=== PATIENT | female | born 1945 | race African-American/Black ===

== ENCOUNTER 2016-08-12 11:34 | Inpatient (IN) | payer OTHER ==
[2016-08-12] VITALS (9 sets, daily range): BP systolic 123–153; BP diastolic 48–88
[~2016-08-12] VITALS: Ht 167.6 cm; Wt 93.6 kg
[2016-08-12] MEDS ORDERED: CEFAZOLIN 2GM PREMIX 50 ML IV ONE (12:26)
[2016-08-12] MEDS ORDERED: IV NORMAL SALINE 1000ML BAG 1,000 ML IV ONE (12:30)
[2016-08-12] MEDS ORDERED: PROPOFOL 20 ML IV ONE ×2 (12:54)
[2016-08-12] MEDS ORDERED: DEXAMETHASONE SOD PHOS 20 MG/5 ML VIAL. ONE (12:55)
[2016-08-12] MEDS ORDERED: FENTANYL PF 100 MCG/2 ML VIAL. ONE ×2 (12:55→15:05)
[2016-08-12] MEDS ORDERED: ONDANSETRON PF 4 MG/2 ML VIAL. ONE (12:55)
[2016-08-12] MEDS ORDERED: BUPIVAC MPF-EPI 0.5%-1:200000 30 ML VIAL. ONE (13:48)
[2016-08-12] MEDS ORDERED: SURGICEL HEMOSTAT 4X8 EACH. ONE (14:11)
[2016-08-12] MEDS ORDERED: PHENYLEPHRINE in 0.9% NACL PF 1 MG/10 ML DISP.SYRIN. IV ONE (14:24)
[2016-08-12] MEDS ORDERED: NEOMY/BACITR/POLYMYXIN OINT PACKET. TP ONE (14:26)
[2016-08-12] MEDS ORDERED: SEVOFLURANE 31 TO 60 MINUTES. IH ONE (14:27)
--- NOTE | 2016-08-12 14:55 | PDOC ---
BRIEF OPERATIVE NOTE Date: Aug 12, 2016 Pre-Op Diagnosis left breast mass, fluid collection Post-Op Diagnosis same Procedure Performed skin and breast biopsy right Surgeon Jose Luis Anesthesia Type: General Blood Loss 25cc IV Fluid 700cc Specimens Obtained skin and breast tissue Findings large fluid filled cavity with induration around the periphery Complications none ATIF CHING MD Aug 12, 2016 14:55
[2016-08-12] MEDS ORDERED: HYDROCODONE/APAP 5/325MG TABLET. PO PRN ×2 (15:00)
[2016-08-12] MEDS ORDERED: DIPHENHYDRAMINE 50 MG/ML VIAL. IV PRN (15:00)
[2016-08-12] MEDS ORDERED: HYDROMORPHONE 2 MG/ML VIAL. IV PRN ×2 (15:00→15:15)
[2016-08-12] MEDS ORDERED: ONDANSETRON PF 4 MG/2 ML VIAL. IV PRN ×2 (15:00→15:15)
[2016-08-12] MEDS ORDERED: DIPHENHYDRAMINE HCL 25 MG CAPSULE PO PRN (15:00)
[2016-08-12] MEDS: ENOXAPARIN 40 MG/0.4 ML SYRINGE. SQ SCH (15:00)
[2016-08-12] MEDS ORDERED: 0.9 % SODIUM CHLORIDE 10 ML DISP.SYRIN. IV PRN (15:00)
[2016-08-12] MEDS ORDERED: IV RINGERS,LACTATED 1000ML 1,000 ML IV SCH (15:08)
[2016-08-12] MEDS ORDERED: MORPHINE SULFATE 2 MG/ML DISP.SYRIN. IV PRN (15:15)
[2016-08-12] MEDS ORDERED: FENTANYL PF 100 MCG/2 ML VIAL. IV PRN ×2 (15:15)
[2016-08-12] MEDS ORDERED: LIDOCAINE 1% 1 ML SYRINGE. ID PRN (15:15)
[2016-08-12] MEDS ORDERED: PROCHLORPERAZINE 10 MG/2 ML VIAL. IV PRN (15:15)
[2016-08-12] MEDS ORDERED: CHOL2000 PO (17:57)
[2016-08-12] MEDS ORDERED: BUPR150T8 PO (17:57)
[2016-08-12] MEDS ORDERED: ASPI81TA2 PO (17:57)
[2016-08-12] MEDS ORDERED: LOSA1TAB17 PO (17:57)
[2016-08-12] MEDS ORDERED: LORA10TA3 PO (17:57)
[2016-08-12] MEDS ORDERED: ATOR40TA59 PO (17:57)
[2016-08-12] MEDS ORDERED: METO25TA4 PO (17:57)
[2016-08-12] MEDS ORDERED: FURO40TA4 PO (17:57)
[2016-08-12] MEDS: POTASSIUM CL 20MEQ-0.45% NACL 1,000 ML IV SCH (19:30)
[2016-08-12] MEDS: CEFAZOLIN SODIUM 1 GM in IV NORMAL SALINE 50ML 50 ML IV SCH (20:41)
[2016-08-12] MEDS: buPROPion SR 150 MG TABLET.SA PO SCH (20:44)
[2016-08-12] MEDS: DOCUSATE SODIUM 100 MG CAPSULE. PO SCH (20:45)
[2016-08-12] MEDS: METOPROLOL TART IMMED RELEASE 25 MG TABLET. PO SCH (20:46)
[2016-08-12] MEDS ORDERED: ATORVASTATIN CALCIUM 40 MG TABLET. PO SCH (21:00)
[2016-08-13 03:32] VITALS: BP 140/72
[2016-08-13] MEDS: POTASSIUM CL 20MEQ-0.45% NACL 1,000 ML IV SCH (04:15)
[2016-08-13] MEDS: CEFAZOLIN SODIUM 1 GM in IV NORMAL SALINE 50ML 50 ML IV SCH (06:02)
[2016-08-13 07:12] VITALS: BP 123/49
[2016-08-13] MEDS: METOPROLOL TART IMMED RELEASE 25 MG TABLET. PO SCH (08:10)
[2016-08-13] MEDS: DOCUSATE SODIUM 100 MG CAPSULE. PO SCH (08:10)
[2016-08-13] MEDS: buPROPion SR 150 MG TABLET.SA PO SCH (08:12)
[2016-08-13] MEDS ORDERED: CETIRIZINE HCL 10 MG TABLET. PO SCH (09:00)
[2016-08-13] MEDS ORDERED: LOSARTAN POTASSIUM 50 MG TABLET. PO SCH (09:00)
[2016-08-13] MEDS ORDERED: FUROSEMIDE 40 MG TABLET. PO SCH (09:00)
[2016-08-13] MEDS ORDERED: NON FORMULARY ITEM (Losartan/Hydrochlorothiazide (Losartan-Hctz 100-25 Mg Tab) 1 TAB) PO SCH (09:00)
[2016-08-13] MEDS ORDERED: CHOLECALCIFEROL (VITAMIN D3) 1,000 UNIT TABLET PO SCH (09:00)
[2016-08-13] MEDS ORDERED: ASPIRIN CHEWABLE 81 MG TABLET. PO SCH (09:00)
[2016-08-13] MEDS ORDERED: HYDROCHLOROTHIAZIDE 25 MG TABLET PO SCH (09:00)
--- NOTE | 2016-08-13 09:16 | PDOC2 ---
CONSULT Date of Consult Date of Consult DATE: 08/12/16 Reason for Consult Reason for Consult: Medication Management Referring Physician Referring Physician: Dr. Amaya Identification/Chief Complaint Chief Complaint Left Breast Mass Source Source: Patient History of Present Illness Reason for Visit: Pt states that she has had pain and drainage from her left breast for the past month. She was taken to the OR yesterday and pain has improved. She is feeling pretty well this morning. Past Medical History Cardiovascular: CHF, HTN, Hyperlipidemia Pulmonary: No pertinent hx GI: No pertinent hx Heme/Onc: Anemia NOS Hepatobiliary: No pertinent hx Psych: No pertinent hx Musculoskeletal: Osteoarthritis Rheumatologic: No pertinent hx Infectious disease: No pertinent hx ENT: No pertinent hx Renal/: Chronic renal insuff Endocrine: No pertinent hx Dermatology: No pertinent hx Past Surgical History Past Surgical History: Total knee replacement, Other (left femur fracture, left ankle repair) Family History Family History: Diabetes (Mother) Social History Quit ALCOHOL: none Drugs: None Lives: Alone Domestic Violence: Neg Current Problem List Problem List Problems Medical Problems: (1) Left breast abscess Status: Acute (2) Obesity Status: Acute Current Medications Current Medications Current Medications Sodium Chloride 1,000 ml @ 125 mls/hr 1X ONCE IV Last administered on t 12:23; Start 08/12/16 at 12:30; Stop 08/12/16 at 20:29; Status DC Cefazolin Sodium/ Dextrose 50 ml @ As Directed STK-MED ONCE IV ; Start 08/12/16 at 12:26; Stop 08/12/16 at 12:27; Status DC Propofol 20 ml @ As Directed STK-MED ONCE IV ; Start 08/12/16 at 12:54; Stop at 12:55; Status DC Propofol (Diprivan) 20 ml @ As Directed STK-MED ONCE IV ; Start 08/12/16 at 12: 54; Stop 08/12/16 at 12:55; Status DC Fentanyl Citrate (Fentanyl 2ml Vial) 100 mcg STK-MED ONCE .ROUTE ; Start at 12:55; Stop 08/12/16 at 12:56; Status DC Dexamethasone Sodium Phosphate (Decadron) 20 mg STK-MED ONCE .ROUTE ; Start at 12:55; Stop 08/12/16 at 12:56; Status DC Ondansetron HCl (Zofran) 4 mg STK-MED ONCE .ROUTE ; Start 08/12/16 at 12:55; Stop 08/12/16 at 12:56; Status DC Bupivacaine HCl/ Epinephrine Bitart (Sensorcain-Mpf Epi 0.5%-1:[id number]) 30 ml STK -MED ONCE .ROUTE ; Start 08/12/16 at 13:48; Stop 08/12/16 at 13:49; Status DC Cellulose 1 each STK-MED ONCE .ROUTE Last administered on 08/12/16 13:58; Start 08/12/16 at 14:11; Stop 08/12/16 at 14:12; Status DC Phenylephrine HCl 1 mg STK-MED ONCE IV ; Start 08/12/16 at 14:24; Stop 08/12/16 at 14:25; Status DC Neomycin/ Polymyxin/ Bacitracin (Triple Antibiotic Ointment) 1 pkt STK-MED ONCE TP Last administered on 08/12/16 13:58; Start 08/12/16 at 14:26; Stop at 14:27; Status DC Sevoflurane (Ultane) 30 ml STK-MED ONCE IH ; Start 08/12/16 at 14:27; Stop 08/12 at 14:28; Status DC Diphenhydramine HCl (Benadryl) 25 mg PRN Q6HRS PRN PO ITCHING; Start 08/12/16 at 15:00 Diphenhydramine HCl (Benadryl) 25 mg PRN Q6HRS PRN IV ITCHING; Start 08/12/16 at 15:00 Enoxaparin Sodium (Lovenox 40mg Syringe) 40 mg Q24H SQ ; Start 08/12/16 at 15:00 Sodium Chloride 3 ml 3 ml QSHIFT PRN IV AFTER MEDS AND BLOOD DRAWS; Start 08/12 at 15:00 Potassium Chloride/Sodium Chloride (KCl 20 Meq-0.45% Nacl) 1,000 ml @ 75 mls/ hr [id number] IV Last administered on 08/12/16 19:30; Start 08/12/16 at 14:55 Acetaminophen/ Hydrocodone Bitart (Lortab 5/325) 1 tab PRN Q4HRS PRN PO MILD PAIN; Start 08/12/16 at 15:00 Acetaminophen/ Hydrocodone Bitart (Lortab 5/325) 2 tab PRN Q4HRS PRN PO MODERATE PAIN, SEVERE PAIN Last administered on 08/13/16 08:17; Start 08/12/16 at 15:00 Hydromorphone HCl (Dilaudid) 0.5 mg PRN Q3HRS PRN IV PAIN; Start 08/12/16 at 15 :00 Docusate Sodium (Colace) 100 mg BID PO Last administered on 08/13/16 08:10; Start 08/12/16 at 21:00 Ondansetron HCl (Zofran) 4 mg PRN Q6HRS PRN IV NAUESA, 1ST CHOICE; Start at 15:00 Fentanyl Citrate (Fentanyl 2ml Vial) 100 mcg STK-MED ONCE .ROUTE ; Start at 15:05; Stop 08/12/16 at 15:06; Status DC Ondansetron HCl (Zofran) 4 mg PRN Q6HRS PRN IV NAUSEA/VOMITING; Start 08/12/16 at 15:15; Stop 08/12/16 at 20:00; Status DC Fentanyl Citrate (Fentanyl 2ml Vial) 25 mcg PRN Q5MIN PRN IV MILD PAIN; Start 08/12/16 at 15:15; Stop 08/12/16 at 18:00; Status DC Fentanyl Citrate (Fentanyl 2ml Vial) 50 mcg PRN Q5MIN PRN IV MODERATE PAIN Last administered on 08/12/16 15:08; Start 08/12/16 at 15:15; Stop 08/12/16 at 20:00; Status DC Morphine Sulfate 1 mg 1 mg PRN Q10MIN PRN IV SEVERE PAIN; Start 08/12/16 at 15: 15; Stop 08/12/16 at 20:00; Status DC Lactated Ringer's (Iv Lactated Ringers) 1,000 ml @ 30 mls/hr Q24H IV ; Start at 15:08; Stop 08/13/16 at 03:07; Status DC Lidocaine HCl 2 ml PRN 1X PRN ID PRIOR TO IV START; Start 08/12/16 at 15:15; Stop 08/12/16 at 20:00; Status DC Hydromorphone HCl (Dilaudid) 0.5 mg PRN Q10MIN PRN IV SEV PAIN, Second choice; Start 08/12/16 at 15:15; Stop 08/12/16 at 18:00; Status DC Prochlorperazine Edisylate (Compazine) 5 mg PACU PRN PRN IV NAUSEA, MRX1; Start 08/12/16 at 15:15; Stop 08/12/16 at 20:00; Status DC Aspirin (Children'S Aspirin) 81 mg DAILY PO Last administered on 08/13/16 08: 12; Start 08/13/16 at 09:00 Atorvastatin Calcium (Lipitor) 40 mg QHS PO Last administered on 08/12/16 20: 44; Start 08/12/16 at 21:00 Bupropion HCl (Wellbutrin Sr) 150 mg BID PO Last administered on 08/13/16 08: 12; Start 08/12/16 at 21:00 Furosemide (Lasix) 40 mg DAILY PO Last administered on 08/13/16 08:10; Start 08/13/16 at 09:00 Metoprolol Tartrate (Lopressor) 25 mg BID PO Last administered on 08/13/16 08: 10; Start 08/12/16 at 21:00 Vitamin D (Vitamin D3) 2,000 unit DAILY PO Last administered on 08/13/16 08:11 ; Start 08/13/16 at 09:00 Cetirizine HCl (Zyrtec) 10 mg DAILY PO Last administered on 08/13/16 08:11; Start 08/13/16 at 09:00 Non-Formulary Medication 1 tab DAILY PO ; Start 08/13/16 at 09:00; Status UNV Losartan Potassium (Cozaar) 100 mg DAILY PO Last administered on 08/13/16 08: 11; Start 08/13/16 at 09:00 Hydrochlorothiazide 25 mg 25 mg DAILY PO Last administered on 08/13/16 08:11; Start 08/13/16 at 09:00 Cefazolin Sodium/ Sodium Chloride (Ancef/Iv Sodium Chloride 0.9% 50ml) 50 ml @ 100 mls/hr Q12HR IV Last administered on 08/13/16 06:02; Start 08/12/16 at 20: 30 Active Scripts Active Reported Loratadine 10 Mg Tablet 1 Tab PO DAILY Atorvastatin Calcium 40 Mg Tablet 1 Tab PO QHS Metoprolol Tartrate 25 Mg Tablet 1 Tab PO BID Losartan-Hctz 100-25 Mg Tab (Losartan/Hydrochlorothiazide) 1 Each Tablet 1 Tab PO DAILY Furosemide 40 Mg Tablet 1 Tab PO DAILY Aspirin 81 Mg Tab.chew 1 Tab PO DAILY Vitamin D (Cholecalciferol (Vitamin D3)) 2,000 Unit Capsule 1 Cap PO DAILY Wellbutrin Sr (Bupropion Hcl) 150 Mg Tablet.er 1 Tab PO BID Allergies Allergies: Coded Allergies: No Known Drug Allergies (Unverified , 08/12/16) ROS General: No: Chills, Night Sweats PSYCHOLOGICAL ROS: No: Anxiety, Depression Eyes: No Decreased vision, No Eye Pain HEENT: No: Nasal congestion, Sore Throat ALLERGY AND IMMUNOLOGY: No: Hives, Post Nasal Drip Hematological and Lymphatic: No: Bleeding Problems, Blood Clots ENDOCRINE: YES: Breast Changes Breast: No Nipple changes Respiratory: YES: Cough, No: Shortness of breath, Sputum Changes Cardiovascular: No Chest Pain, No Edema, No Palpitations Gastrointestinal: No Abdominal Pain, No Constipation, No Diarrhea, No Nausea, No Vomiting Genitourinary: No Dysuria, No Urgency Musculoskeletal: No Joint Pain, No Muscle Pain Neurological: No Impaired Coord/balance, No Numbness/Tingling Skin: No Rash, No Skin Lesion Changes Physical Exam Physical Exam serosanguinous drainage on left breast dressing and on towel underneath left breast General: Alert, Oriented X3, Cooperative, No acute distress HEENT: Atraumatic, PERRLA, EOMI, Mucous membr. moist/pink Lungs: Clear to auscultation, Normal air movement Heart: Regular rate, No murmurs Abdomen: Normal bowel sounds, Soft, No tenderness, No hepatosplenomegaly Extremities: No clubbing, No cyanosis, No edema Skin: No rashes, No significant lesion Neuro: Normal speech, Sensation intact, Cranial nerves 3-12 NL Psych/Mental Status: Mental status NL, Mood NL Vitals VITALS Vital Signs Date Time Temp Pulse Resp B/P Pulse Ox O2 Delivery O2 Flow Rate FiO2 08/13/16 08:17 Room Air 08/13/16 08:11 63 123/49 08/13/16 07:12 97.9 20 99 97.9 08/12/16 15:05 2 Assessment/Plan Assessment/Plan Pt is a 70yo AAF admitted for left breast surgery. We are consulted for medical management 1)HTN- well controlled. Pt continued on HCTZ 25mg, Losartan 100mg, Metoprolol 25mg BID 2)CHF- compensated. Continue Lasix 40mg 3)Depression- pt continued on Buproprion 150mg BID 4)HLD- pt continued on Atorvastatin 40mg QHS 5)Left Breast Sx- pain medications being managed by surgery. Pt also on Cefazolin -pt eating, will D/C IVF RANDI PATTERSON MD Aug 13, 2016 09:16
[2016-08-13 10:54] VITALS: BP 141/47
--- NOTE | 2016-08-13 12:01 | PDOC ---
Provider Note Provider Note POD 1 awake, alert, NAD dressing dry try to get home today ATIF CHING MD Aug 13, 2016 12:01
--- NOTE | 2016-08-13 14:51 | OP ---
DATE OF SURGERY: 08/12/2016 PREOPERATIVE DIAGNOSIS: Left breast fluid collection/mass. POSTOPERATIVE DIAGNOSIS: Left breast fluid collection/mass. PROCEDURE: Incision and drainage and biopsy of left breast fluid collection. SURGEON: Atif Ching M.D. ANESTHESIA: General. ESTIMATED BLOOD LOSS: 25 mL. INTRAVENOUS FLUIDS: 700 mL. INDICATIONS: The patient is a morbidly obese 70-year-old female with recent history of drainage of her left breast abscess. She presents now with induration, ____, skin change, and fluctuance. OPERATIVE REPORT: The patient was brought to the operating suite, given her general LMA and the left breast was prepped and draped in usual sterile fashion. The area of fluctuance was opened, evacuated, and biopsied. Hemostasis with cautery and 3-0 Vicryl stick ties. Good hemostasis was present and a correct sponge count was obtained. The wound was dressed with Surgicel and 1-inch plain Nu Gauze soaked in saline. Sterile dressing applied. The patient was awakened from her anesthetic and taken to the recovery room in satisfactory condition. ATIF CHING MD DR: CARIE/alexia JOB#: [id number] / [id number]
[2016-08-13] MEDS: ENOXAPARIN 40 MG/0.4 ML SYRINGE. SQ SCH (15:10)
[2016-08-13 15:25] VITALS: BP 163/74
== END 2016-08-13 16:45 | disposition home or self-care (01) | DRG 585 ==
LOC: SURG 11:34 → 4 NORTH 14:55
PROVIDERS: ADMIT Surgery; ATTEND Surgery
PROC: 0HBU0ZX Excision of Left Breast, Open Approach, Diagnostic (ICD-10-PCS; 2016-08-12)
PROC: 0H9U0ZZ Drainage of Left Breast, Open Approach (ICD-10-PCS; principal; 2016-08-12 12:45)
DX: N61.1 Abscess of the breast and nipple (principal); E66.01 Morbid (severe) obesity due to excess calories; E78.5 Hyperlipidemia, unspecified; F32.9 Major depressive disorder, single episode, unspecified; I11.0 Hypertensive heart disease with heart failure; I50.9 Heart failure, unspecified; Z96.659 Presence of unspecified artificial knee joint; Z68.33 Body mass index [BMI] 33.0-33.9, adult; Z83.3 Family history of diabetes mellitus
CPT/HCPCS: 87071; 87075; 87205; J0690; J1100; J1650; J2370; J2405; J2704; J3010; J3490

== ENCOUNTER 2016-08-22 10:55 | Inpatient (IN) | payer OTHER ==
[~2016-08-22] VITALS: Ht 167.6 cm; Wt 93.4 kg
[~2016-08-22 10:55] MED LIST: ASPI81TA2 PO; ATOR40TA59 PO; BUPR150T8 PO; CHOL2000 PO; FURO40TA4 PO; LORA10TA3 PO; LOSA1TAB17 PO; METO25TA4 PO
--- NOTE | 2016-08-22 11:48 | PHYS DOC ---
Past Medical History Past Medical History: Hypertension, Other Additional Past Medical Histor: chronic edema, pt reports no medical history Past Surgical History: Knee Replacement, Other Additional Past Surgical Histo: incision and drainage of abcess to left breast Alcohol Use: None Drug Use: None Adult General Chief Complaint Chief Complaint: ABNORMAL LABS [facility] HPI Patient is a 70 year old -Pak[place] female who presents with abnormal labs. She states her niece told her that she needed to go the emergency department. She thinks it was her surgeon who drained her breast abscess that will her to come here. She denies any pain, fevers, or other concerns at this time. Review of Systems Review of Systems Constitutional: Denies fever or chills [] Eyes: Denies change in visual acuity, redness, or eye pain [] HENT: Denies nasal congestion or sore throat [] Respiratory: Denies cough or shortness of breath [] Cardiovascular: No additional information not addressed in HPI [] GI: Denies abdominal pain, nausea, vomiting, bloody stools or diarrhea [] : Denies dysuria or hematuria [] Musculoskeletal: Denies back pain or joint pain [] Integument: Denies rash or skin lesions [] Neurologic: Denies headache, focal weakness or sensory changes [] Endocrine: Denies polyuria or polydipsia [] Current Medications Current Medications Current Medications Medications (Trade) Dose Ordered Sig/Ezequiel Start Time Stop Time Status Last Admin Dose Admin Ondansetron HCl (Zofran) 4 mg PRN Q8HRS PRN 08/22/16 13:45 08/23/16 13:44 Allergies Allergies Allergies Coded Allergies Type Severity Reaction Last Updated Verified No Known Drug Allergies 08/12/16 No Physical Exam Physical Exam Constitutional: Well developed, well nourished, no acute distress, non-toxic appearance. [] HENT: Normocephalic, atraumatic, bilateral external ears normal, oropharynx moist, no oral exudates, nose normal. [] Eyes: PERRLA, EOMI, conjunctiva normal, no discharge. [] Neck: Normal range of motion, no tenderness, supple, no stridor. [] Cardiovascular/chest wall:Heart rate regular rhythm, no murmur, dressing on left breast, clean dry and intact [] Lungs & Thorax: Bilateral breath sounds clear to auscultation [] Abdomen: Bowel sounds normal, soft, no tenderness, no masses, no pulsatile masses. [] Skin: Warm, dry, no erythema, no rash. [] Back: No tenderness, no CVA tenderness. [] Extremities: No tenderness, no cyanosis, no clubbing, ROM intact, no edema. [] Neurologic: Alert and oriented X 3, normal motor function, normal sensory function, no focal deficits noted. [] Psychologic: Affect normal, judgement normal, mood normal. [] Current Patient Data Vital Signs Vital Signs Date Time Temp Pulse Resp B/P Pulse Ox O2 Delivery O2 Flow Rate FiO2 08/22/16 14:00 66 18 166/71 96 Room Air 08/22/16 11:18 98.1 98.1 Lab Values Laboratory Tests Test 08/22/16 12:15 08/22/16 13:25 08/22/16 13:34 White Blood Count 4.5x10^3/uL (4.0-11.0) Red Blood Count 2.59x10^6/uL (3.50-5.40) L Hemoglobin 7.0g/dL (12.0-15.5) *L Hematocrit 22.5% (36.0-47.0) L Mean Corpuscular Volume 87fL (79-100) Mean Corpuscular Hemoglobin 27pg (25-35) Mean Corpuscular Hemoglobin Concent 31g/dL (31-37) Red Cell Distribution Width 17.4% (11.5-14.5) H Platelet Count 190x10^3/uL (140-400) Neutrophils (%) (Auto) 53% (31-73) Lymphocytes (%) (Auto) 30% (24-48) Monocytes (%) (Auto) 12% (0-9) H Eosinophils (%) (Auto) 5% (0-3) H Basophils (%) (Auto) 1% (0-3) Neutrophils # (Auto) 2.4x10^3uL (1.8-7.7) Lymphocytes # (Auto) 1.3x10^3/uL (1.0-4.8) Monocytes # (Auto) 0.5x10^3/uL (0.0-1.1) Eosinophils # (Auto) 0.2x10^3/uL (0.0-0.7) Basophils # (Auto) 0.1x10^3/uL (0.0-0.2) Reticulocyte Count (auto) 0.8% (0.5-2.5) Prothrombin Time 15.1SEC (11.7-14.0) H Prothrombin Time INR 1.3 (0.8-1.1) H Sodium Level 144mmol/L (136-145) Potassium Level 4.8mmol/L (3.5-5.1) Chloride Level 111mmol/L (98-107) H Carbon Dioxide Level 24mmol/L (21-32) Anion Gap 9 (6-14) Blood Urea Nitrogen 31mg/dL (7-20) H Creatinine 2.5mg/dL (0.6-1.0) H Estimated GFR (Cockcroft-Gault) 23.2 Glucose Level 99mg/dL (70-99) Calcium Level 8.6mg/dL (8.5-10.1) Magnesium Level 2.0mg/dL (1.8-2.4) Iron Level 31ug/dL (50-170) L Total Iron Binding Capacity 186ug/dL (250-450) L Iron Saturation 17% (15-34) Ferritin 211ng/mL (8-252) Total Bilirubin 0.2mg/dL (0.2-1.0) Direct Bilirubin 0.1mg/dL (0.0-0.2) Aspartate Amino Transferase (AST) 14U/L (15-37) L Alanine Aminotransferase (ALT) 10U/L (14-59) L Alkaline Phosphatase 95U/L (46-116) Lactate Dehydrogenase 205U/L (81-234) Creatine Kinase 54U/L (26-192) Creatine Kinase MB (Mass) < 0.5ng/mL (0.0-3.6) Creatine Kinase MB Relative Index % (0-4) Troponin I Quantitative < 0.017ng/mL (0.000-0.055) OJ-Uzc-P-Type Natriuretic Peptide 1196pg/mL (0-124) H Total Protein 7.3g/dL (6.4-8.2) Albumin 3.0g/dL (3.4-5.0) L Stool Occult Blood Negative (NEG) Urine Collection Type Void Urine Color Yellow Urine Clarity Clear Urine pH 6.5 Urine Specific [place] 1.010 Urine Protein Negativemg/dL (NEG-TRACE) Urine Glucose (UA) Negativemg/dL (NEG) Urine Ketones (Stick) Negativemg/dL (NEG) Urine Blood Negative (NEG) Urine Nitrite Negative (NEG) Urine Bilirubin Negative (NEG) Urine Urobilinogen Dipstick 1.0mg/dL (0.2 mg/dL) Urine Leukocyte Esterase Trace (NEG) Urine RBC 0/HPF (0-2) Urine WBC 1-4/HPF (0-4) Urine Squamous Epithelial Cells Many/LPF Urine Bacteria Few/HPF (0-FEW) Urine Hyaline Casts Few/HPF Urine Mucus Slight/LPF Laboratory Tests 08/22/16 12:15 Laboratory Tests 08/22/16 12:15 EKG EKG [] Radiology/Procedures Radiology/Procedures [] Impressions: Anemia Acute on chronic renal failure Course & Med Decision Making Course & Med Decision Making Pertinent Labs and Imaging studies reviewed. (See chart for details) Hemoglobin is shows 7 on labs with renal failure with creatinine 2.5. Her last alanine was 2.1 a couple weeks ago. In addition her hemoglobin was also around 8 at that time. We'll admit to Dr. Muhammad with consults to Dr. Amaya for her breast abscess that he's been evaluating and treating in addition to Dr. Greene for renal failure. Patient is typed and screened and 2 units of blood is been ordered. I have ordered iron studies, haptoglobin, LDH, reticulocyte count. Dragon Disclaimer Dragon Disclaimer This electronic medical record was generated, in whole or in part, using a voice recognition dictation system. Departure Departure Impression: Primary Impression: Anemia Admitting Physician: Alie Muhammad Referrals: MICHI MUHAMMAD MD (PCP) Problem Qualifiers Primary Impression: Anemia Anemia type: unspecified type Qualified Code: D64.9 - Anemia, unspecified LEONARDO WALTERS MD Aug 22, 2016 11:48
[2016-08-22 12:26] LABS: BASO # 0.1 x10^3/uL (0.0-0.2); BASO % 1 % (0-3); EOS % 5 % (0-3); HEMATOCRIT 22.5 % (36.0-47.0); LYMPH # 1.3 x10^3/uL (1.0-4.8); LYMPH % 30 % (24-48); MEAN CORPUSCULAR HEMOGLOBIN 27 pg (25-35); MEAN CORPUSCULAR HGB CONC 31 g/dL (31-37); MEAN CORPUSCULAR VOLUME 87 fL (79-100); MONO % 12 % (0-9); NEUT % 53 % (31-73); PLATELET COUNT 190 x10^3/uL (140-400); RED BLOOD COUNT 2.59 x10^6/uL (3.50-5.40); RED CELL DISTRIBUTION WIDTH 17.4 % (11.5-14.5); WHITE BLOOD COUNT 4.5 x10^3/uL (4.0-11.0)
[2016-08-22 12:39] LABS: CALCIUM 8.6 mg/dL (8.5-10.1); CREATININE 2.5 mg/dL (0.6-1.0); GFR 23.2; POTASSIUM 4.8 mmol/L (3.5-5.1)
[2016-08-22 12:44] LABS: DIRECT BILIRUBIN 0.1 mg/dL (0.0-0.2); INR 1.3 (0.8-1.1); PROTHROMBIN TIME PATIENT 15.1 SEC (11.7-14.0); TOTAL BILIRUBIN 0.2 mg/dL (0.2-1.0); TOTAL PROTEIN 7.3 g/dL (6.4-8.2)
[2016-08-22 12:54] LABS: CREATINE KINASE 54 U/L (26-192)
[2016-08-22 12:55] LABS: CKMB MASS < 0.5 ng/mL (0.0-3.6)
[2016-08-22 13:15] LABS: % SAT IRON 17 % (15-34); IRON,SERUM 31 ug/dL (50-170)
[2016-08-22 13:28] LABS: FERRITIN 211 ng/mL (8-252); LACTATE DEHYDROGENASE 205 U/L (81-234)
[2016-08-22 13:37] LABS: NEG OBC FOB NEG; POS OBC FOB POS
[2016-08-22] MEDS ORDERED: ONDANSETRON PF 4 MG/2 ML VIAL. IV PRN (13:45)
[2016-08-22 13:46] LABS: BILIRUBIN,URINE NEGATIVE (NEG); GLUCOSE,URINE NEGATIVE (NEG); NITRITE,URINE NEGATIVE (NEG); PH,URINE 6.5; PROTEIN,URINE NEGATIVE (NEG-TRACE)
[2016-08-22 13:54] LABS: BACTERIA,URINE FEW /HPF (0-FEW); RBC,URINE 0 /HPF (0-2); SQUAMOUS EPITHELIAL CELL,UR MANY /LPF
[2016-08-22 14:55] VITALS: BP 156/67
[2016-08-22 15:10] VITALS: BP 158/85
[2016-08-22 16:10] VITALS: BP 174/70
[2016-08-22] MEDS ORDERED: ACETAMINOPHEN 500 MG TABLET PO ONE (17:15)
[2016-08-22 19:45] VITALS: BP 161/61
--- NOTE | 2016-08-22 21:06 | HP ---
ADMIT DATE: 08/22/2016 ADMISSION DIAGNOSES: Anemia and acute renal failure. HISTORY OF PRESENT ILLNESS: This is a 70-year-old -[place] female recently seen with a left breast abscess which grew group B strep. She was started on antibiotics and it improved, but mammogram suggested underlying malignancy versus infection. She saw Dr. Amaya found an abscess and opened and drained it. She was due to see him for followup today of that. She had some labs in the office last week showing her hemoglobin to be down to 7.8 from a baseline of 9.8 without obvious reason for bleeding and it also showed an increase in her creatinine from a baseline of 2.5 up to, I think, 3.8 with an EGFR of 15. Apparently, she just found out about those results to her knees today with instructions for her to go to the Emergency Room, which she did. She was seen and evaluated in the Emergency Room. Her hemoglobin was down to 7, although she was not particularly symptomatic with that. Her creatinine had dropped back down to 2.5. She denies any fever, chills or infectious symptoms related to her breast abscess and she had not had any apparent complications with her wound care. She has developed some lower extremity edema, but has been urinating. PAST MEDICAL HISTORY: Lumbar spinal stenosis and osteoarthritis for which she uses a walker. She has hypertension, allergic rhinitis, chronic kidney disease stage III-IV. She has a history of anemia treated with Aranesp injections. PAST SURGICAL HISTORY: Include knee replacement, I and D of her breast, left femur fracture, and right ankle surgery. FAMILY HISTORY: Unknown. ALLERGIES: She has no known drug allergies. SOCIAL HISTORY: Negative for tobacco or alcohol use. HOME MEDICATIONS: Include aspirin 81 daily, atorvastatin 40 mg at bedtime, Wellbutrin-SR 150 b.i.d., vitamin D 2000 units daily, furosemide 40 mg daily, loratadine 10 mg daily, losartan HCT 100/25 daily, and metoprolol 25 one b.i.d. REVIEW OF SYSTEMS: HEENT: Negative for allergies or cold symptoms, no lightheadedness, no dizziness. CARDIAC: Negative for chest pain or palpitations. PULMONARY: Negative for shortness of breath or cough. GASTROINTESTINAL: Negative for heartburn, indigestion, diarrhea, or constipation. RENAL: Negative for urinary retention. MUSCULOSKELETAL: Positive for back pain into her right hip and lateral leg and some right shoulder pain. She uses a walker. NEUROLOGIC: Negative for headaches, dizziness or syncope. PSYCHIATRIC: Mood has been normal. BREASTS: Left breast has been recovering from her I and D without any infectious symptoms. NUTRITION: She seems to have somewhat decreased appetite. LABORATORY DATA: White count is 4.5, hemoglobin 7, hematocrit 22.5, platelets 190, retic count 0.8. INR is 1.3. BUN is 31, creatinine 2.5, glucose 99, and calcium 8.6. Iron low at 31, TIBC low at 186, saturation is normal low at 17 and her ferritin is normal. Liver enzymes are normal. Albumin is little low at 3. ProBNP slightly high at 1196. Her troponin was less than 0.017. Urinalysis shows trace leukocyte esterase, but many squamous epithelial cells most likely not a very clean catch. Stool occult blood is negative. Wound culture of her left breast from 08/12/2016 showed no growth in 72 hours. Blood Bank shows she is O positive. Mammogram screening from 08/02/2014 showed no evidence of malignancy in either breast, benign appearing lymph nodes were present. ASSESSMENT: 1. Anemia ____ acute on chronic renal failure. Her lab is improved from outpatient lab last week as far as her kidney function goes, but has worsened from an anemia standpoint. 2. Left breast abscess, status post incision and drainage. PLAN: She is admitted. She has been transfused. Dr. Amaya will see her in followup of her breast abscess. Dr. Greene will see her for followup of her chronic kidney disease. Source of bleeding will hopefully be identified, but there is no active bleeding at this time that is obvious. No evidence of GI bleeding and she has not had any significant bleeding from her wounds. Her baseline hemoglobin from several months ago was about 9.8. Her baseline creatinine from several months ago was about ____, but she recently had an outpatient lab last week with her creatinine to be over 3-1/2. She is being hydrated her with IV fluids. She is comfortable, home meds will be resumed. W Anthony STEVEN MD DR: JELLY/alexia JOB#: [id number] / [id number]
[2016-08-22] MEDS: METOPROLOL TART IMMED RELEASE 25 MG TABLET. PO SCH (22:33)
[2016-08-22] MEDS: ATORVASTATIN CALCIUM 40 MG TABLET. PO SCH (22:33)
[2016-08-22] MEDS: buPROPion SR 150 MG TABLET.SA PO SCH (22:34)
[2016-08-22 23:38] VITALS: BP 124/60
[2016-08-23] VITALS (11 sets, daily range): BP systolic 115–149; BP diastolic 56–86
[2016-08-23] MEDS ORDERED: ACETAMINOPHEN 500 MG TABLET PO PRN (01:00)
[2016-08-23] MEDS: ACETAMINOPHEN 500 MG TABLET PO PRN ×2 (03:44→08:58)
--- NOTE | 2016-08-23 05:43 | ACF ---
Admit Criteria Forms Admit Criteria Forms Admit Criteria Forms ANEMIA Clinical Indications for Inpatient Care (Place 'X' for any and all applicable criteria) Ongoing inpatient care may be needed for anemia with 1 or more of the following (1)(2)(3)(4)(18)(37): []I. Severe signs or symptoms unresponsive to transfusion or volume replacement , including ANY ONE of the following: []a) Heart failure []b) Chest pain []c) Myocardial ischemia []d) Exertional dyspnea []e) Syncope []f) Acute peripheral ischemia (eg, pulseless, cool, mottled, or cyanotic extremity) []g) Other severe signs or symptoms []II. Cognitive impairment []III. Active hemorrhage []IV.Active hemolysis with rapidly progressive anemia [X]V. Hemodynamic instability Extended stay beyond goal length of stay for the primary condition may be needed until ALL of the following are present (1)(2)(3)(4): []a) Hemodynamic stability []b) Any active blood loss controlled []c) Severe signs or symptoms resolved []d) Mental status normal or at baseline []e) Stable hemoglobin after transfusion []f) Any underlying disorder or complications of treatment controlled The original [employer] content created by [employer] has been revised. The portions of the content which have been revised are identified through the use of italic text or in bold, and [facility] has neither reviewed nor approved the modified material. All other unmodified content is copyright [employer]. Please see references footnoted in the original [employer] edition 2016 SEVERO DELONG Aug 23, 2016 05:43
--- NOTE | 2016-08-23 07:00 | EKG ---
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
[2016-08-23 07:20] LABS: BASO # 0.1 x10^3/uL (0.0-0.2); BASO % 1 % (0-3); EOS % 3 % (0-3); HEMATOCRIT 27.5 % (36.0-47.0); HEMOGLOBIN 8.8 g/dL (12.0-15.5); LYMPH # 1.2 x10^3/uL (1.0-4.8); LYMPH % 20 % (24-48); MEAN CORPUSCULAR HEMOGLOBIN 28 pg (25-35); MEAN CORPUSCULAR HGB CONC 32 g/dL (31-37); MEAN CORPUSCULAR VOLUME 87 fL (79-100); MONO % 10 % (0-9); NEUT % 65 % (31-73); PLATELET COUNT 176 x10^3/uL (140-400); RED BLOOD COUNT 3.18 x10^6/uL (3.50-5.40); RED CELL DISTRIBUTION WIDTH 16.4 % (11.5-14.5)
[2016-08-23 07:34] LABS: CALCIUM 8.6 mg/dL (8.5-10.1); CREATININE 2.2 mg/dL (0.6-1.0); GFR 26.9; POTASSIUM 4.5 mmol/L (3.5-5.1)
[2016-08-23] MEDS: CETIRIZINE HCL 10 MG TABLET. PO SCH (08:52)
[2016-08-23] MEDS: buPROPion SR 150 MG TABLET.SA PO SCH ×2 (08:52→22:02)
[2016-08-23] MEDS: METOPROLOL TART IMMED RELEASE 25 MG TABLET. PO SCH ×2 (08:53→22:02)
[2016-08-23] MEDS: CHOLECALCIFEROL (VITAMIN D3) 1,000 UNIT TABLET PO SCH (08:54)
--- NOTE | 2016-08-23 11:41 | PDOC2 ---
CONSULT Date of Consult Date of Consult DATE: 08/23/16 TIME: 11:40 Reason for Consult Reason for Consult: CKD III/ IV Referring Physician Referring Physician: Dr Muhammad Identification/Chief Complaint Chief Complaint Anemia Problems: Source Source: Chart review, Patient History of Present Illness Reason for Visit: as dictated Past Medical History Cardiovascular: CHF, HTN, Hyperlipidemia Pulmonary: No pertinent hx GI: No pertinent hx Heme/Onc: Anemia NOS Hepatobiliary: No pertinent hx Psych: No pertinent hx Musculoskeletal: Osteoarthritis Rheumatologic: No pertinent hx Infectious disease: No pertinent hx Renal/: Chronic renal insuff Endocrine: No pertinent hx Past Surgical History Past Surgical History: Total knee replacement, Other Family History Family History: Diabetes Social History ALCOHOL: none Drugs: None Lives: Alone Domestic Violence: Neg Current Problem List Problem List Problems Medical Problems: (1) Anemia Status: Acute Current Medications Current Medications Current Medications Ondansetron HCl (Zofran) 4 mg PRN Q8HRS PRN IV NAUSEA/VOMITING; Start 08/22/16 at 13:45; Stop 08/23/16 at 13:44 Atorvastatin Calcium (Lipitor) 40 mg QHS PO Last administered on 08/22/16 22: 33; Start 08/22/16 at 21:00 Bupropion HCl (Wellbutrin Sr) 150 mg BID PO Last administered on 08/23/16 08: 52; Start 08/22/16 at 21:00 Metoprolol Tartrate (Lopressor) 25 mg BID PO Last administered on 08/23/16 08: 53; Start 08/22/16 at 21:00 Vitamin D (Vitamin D3) 2,000 unit DAILY PO Last administered on 08/23/16 08:54 ; Start 08/23/16 at 09:00 Cetirizine HCl (Zyrtec) 10 mg DAILY PO Last administered on 08/23/16 08:52; Start 08/23/16 at 09:00 Acetaminophen (Tylenol) 500 mg 1X ONCE PO Last administered on 08/22/16 17:53 ; Start 08/22/16 at 17:15; Stop 08/22/16 at 17:21; Status DC Acetaminophen (Tylenol) 500 mg PRN Q4HRS PRN PO MILD PAIN / TEMP Last administered on 08/23/16 08:58; Start 08/23/16 at 01:00 Acetaminophen (Tylenol) 1,000 mg PRN Q4HRS PRN PO MILD PAIN; Start 08/23/16 at 01:00 Active Scripts Active Reported Loratadine 10 Mg Tablet 1 Tab PO DAILY Atorvastatin Calcium 40 Mg Tablet 1 Tab PO QHS Metoprolol Tartrate 25 Mg Tablet 1 Tab PO BID Losartan-Hctz 100-25 Mg Tab (Losartan/Hydrochlorothiazide) 1 Each Tablet 1 Tab PO DAILY Furosemide 40 Mg Tablet 1 Tab PO DAILY Aspirin 81 Mg Tab.chew 1 Tab PO DAILY Vitamin D (Cholecalciferol (Vitamin D3)) 2,000 Unit Capsule 1 Cap PO DAILY Wellbutrin Sr (Bupropion Hcl) 150 Mg Tablet.er 1 Tab PO BID Allergies Allergies: Coded Allergies: No Known Drug Allergies (Unverified , 08/25/16) ROS Review of System GEN: no Fevers no Chills EYES: no Visual Complaints ENT: no EN Drainage no Hearing deficiets CVS: no Orthopnea no CP RESP: no SOB no ENAMORADO GI: no Nausea no Vomiting : no Dysuria no Urgency HEME: no easy bruising no Palp Ly Nodes NEURO no Focal Weakness no Sz PSYCH: no Suicidal Ideation no Depression SKIN: no Rashes recent breast abscess I and D with Foul odor ENDO: no Polyuria or Polydipsia no Hot/Cold Intolerance MU SK: no Arthraigia no Myalgia Physical Exam Physical Exam General Appearance: Awake Alert Oriented x 1-2 In no Distress ; ? underlying dementia Eyes: VIsion Unchanged Conjunctiva Normal EN: No EN Drainage Mucous Memb. moist Neck: no JVD no JVP Supple no Thyromegaly CVS: S1 S2 ? Murmur No Gallop No Rub + Edema Resp: no Rales no Rhonchi no Acc. Muscle use GI: BAS +ve NO Bruit Non Tender Non Distended : no CVA tenderness; no Suprapubic Tenderness SKIN: no Rashes Breast Exam deferred Mu.Sk: Adequate ROM no Muscle Atrophy Heme: Unable to palpate Obvious LAD no palp Splenomegaly NEURO: Good Strength and Tone; ? some underlying dementia Psych: ? Depressed Active hallucination Vital Signs Vital Signs Date Time Temp Pulse Resp B/P Pulse Ox O2 Delivery O2 Flow Rate FiO2 08/23/16 11:00 98.0 50 18 141/64 97 Room Air 98.0 08/22/16 19:45 99.0 Assessment & Plan ARF: Now appears to have resolved. Current FLuid and E-lyte status does not necessitate emergent need for Dialysis. 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 Restance to Epogen from ongoing infectin. Transfuse with next HD as needed. ? GI eval HTN: Current BP meds reviewed. See orders for changes. edema - ct home regimen of lasix Labs Labs Laboratory Tests Test 08/22/16 12:15 08/22/16 13:25 08/22/16 13:34 08/22/16 19:25 White Blood Count 4.5x10^3/uL (4.0-11.0) Red Blood Count 2.59x10^6/uL (3.50-5.40) Hemoglobin 7.0g/dL (12.0-15.5) Hematocrit 22.5% (36.0-47.0) Mean Corpuscular Volume 87fL (79-100) Mean Corpuscular Hemoglobin 27pg (25-35) Mean Corpuscular Hemoglobin Concent 31g/dL (31-37) Red Cell Distribution Width 17.4% (11.5-14.5) Platelet Count 190x10^3/uL (140-400) Neutrophils (%) (Auto) 53% (31-73) Lymphocytes (%) (Auto) 30% (24-48) Monocytes (%) (Auto) 12% (0-9) Eosinophils (%) (Auto) 5% (0-3) Basophils (%) (Auto) 1% (0-3) Neutrophils # (Auto) 2.4x10^3uL (1.8-7.7) Lymphocytes # (Auto) 1.3x10^3/uL (1.0-4.8) Monocytes # (Auto) 0.5x10^3/uL (0.0-1.1) Eosinophils # (Auto) 0.2x10^3/uL (0.0-0.7) Basophils # (Auto) 0.1x10^3/uL (0.0-0.2) Reticulocyte Count (auto) 0.8% (0.5-2.5) Haptoglobin 319mg/dL (34-200) Prothrombin Time 15.1SEC (11.7-14.0) Prothromb Time International Ratio 1.3 (0.8-1.1) Sodium Level 144mmol/L (136-145) Potassium Level 4.8mmol/L (3.5-5.1) Chloride Level 111mmol/L (98-107) Carbon Dioxide Level 24mmol/L (21-32) Anion Gap 9 (6-14) Blood Urea Nitrogen 31mg/dL (7-20) Creatinine 2.5mg/dL (0.6-1.0) Estimated GFR (Cockcroft-Gault) 23.2 Glucose Level 99mg/dL (70-99) Calcium Level 8.6mg/dL (8.5-10.1) Magnesium Level 2.0mg/dL (1.8-2.4) Iron Level 31ug/dL (50-170) Total Iron Binding Capacity 186ug/dL (250-450) Iron Saturation 17% (15-34) Ferritin 211ng/mL (8-252) Total Bilirubin 0.2mg/dL (0.2-1.0) Direct Bilirubin 0.1mg/dL (0.0-0.2) Aspartate Amino Transf (AST/SGOT) 14U/L (15-37) Alanine Aminotransferase (ALT/SGPT) 10U/L (14-59) Alkaline Phosphatase 95U/L (46-116) Lactate Dehydrogenase 205U/L (81-234) Creatine Kinase 54U/L (26-192) Creatine Kinase MB (Mass) < 0.5ng/mL (0.0-3.6) Creatine Kinase MB Relative Index % (0-4) Troponin I Quantitative < 0.017ng/mL (0.000-0.055) < 0.017ng/mL (0.000-0.055) KV-Hrl-D-Type Natriuretic Peptide 1196pg/mL (0-124) Total Protein 7.3g/dL (6.4-8.2) Albumin 3.0g/dL (3.4-5.0) Stool Occult Blood Negative (NEG) Urine Collection Type Void Urine Color Yellow Urine Clarity Clear Urine pH 6.5 Urine Specific [place] 1.010 Urine Protein Negativemg/dL (NEG-TRACE) Urine Glucose (UA) Negativemg/dL (NEG) Urine Ketones (Stick) Negativemg/dL (NEG) Urine Blood Negative (NEG) Urine Nitrite Negative (NEG) Urine Bilirubin Negative (NEG) Urine Urobilinogen Dipstick 1.0mg/dL (0.2 mg/dL) Urine Leukocyte Esterase Trace (NEG) Urine RBC 0/HPF (0-2) Urine WBC 1-4/HPF (0-4) Urine Squamous Epithelial Cells Many/LPF Urine Bacteria Few/HPF (0-FEW) Urine Hyaline Casts Few/HPF Urine Mucus Slight/LPF Test 08/23/16 07:05 White Blood Count 6.0x10^3/uL (4.0-11.0) Red Blood Count 3.18x10^6/uL (3.50-5.40) Hemoglobin 8.8g/dL (12.0-15.5) Hematocrit 27.5% (36.0-47.0) Mean Corpuscular Volume 87fL (79-100) Mean Corpuscular Hemoglobin 28pg (25-35) Mean Corpuscular Hemoglobin Concent 32g/dL (31-37) Red Cell Distribution Width 16.4% (11.5-14.5) Platelet Count 176x10^3/uL (140-400) Neutrophils (%) (Auto) 65% (31-73) Lymphocytes (%) (Auto) 20% (24-48) Monocytes (%) (Auto) 10% (0-9) Eosinophils (%) (Auto) 3% (0-3) Basophils (%) (Auto) 1% (0-3) Neutrophils # (Auto) 3.9x10^3uL (1.8-7.7) Lymphocytes # (Auto) 1.2x10^3/uL (1.0-4.8) Monocytes # (Auto) 0.6x10^3/uL (0.0-1.1) Eosinophils # (Auto) 0.2x10^3/uL (0.0-0.7) Basophils # (Auto) 0.1x10^3/uL (0.0-0.2) Sodium Level 141mmol/L (136-145) Potassium Level 4.5mmol/L (3.5-5.1) Chloride Level 110mmol/L (98-107) Carbon Dioxide Level 21mmol/L (21-32) Anion Gap 10 (6-14) Blood Urea Nitrogen 29mg/dL (7-20) Creatinine 2.2mg/dL (0.6-1.0) Estimated GFR (Cockcroft-Gault) 26.9 Glucose Level 97mg/dL (70-99) Calcium Level 8.6mg/dL (8.5-10.1) Troponin I Quantitative 0.079ng/mL (0.000-0.055) Laboratory Tests Test 08/22/16 12:15 08/22/16 13:25 08/22/16 13:34 08/22/16 19:25 White Blood Count 4.5x10^3/uL (4.0-11.0) Red Blood Count 2.59x10^6/uL (3.50-5.40) Hemoglobin 7.0g/dL (12.0-15.5) Hematocrit 22.5% (36.0-47.0) Mean Corpuscular Volume 87fL (79-100) Mean Corpuscular Hemoglobin 27pg (25-35) Mean Corpuscular Hemoglobin Concent 31g/dL (31-37) Red Cell Distribution Width 17.4% (11.5-14.5) Platelet Count 190x10^3/uL (140-400) Neutrophils (%) (Auto) 53% (31-73) Lymphocytes (%) (Auto) 30% (24-48) Monocytes (%) (Auto) 12% (0-9) Eosinophils (%) (Auto) 5% (0-3) Basophils (%) (Auto) 1% (0-3) Neutrophils # (Auto) 2.4x10^3uL (1.8-7.7) Lymphocytes # (Auto) 1.3x10^3/uL (1.0-4.8) Monocytes # (Auto) 0.5x10^3/uL (0.0-1.1) Eosinophils # (Auto) 0.2x10^3/uL (0.0-0.7) Basophils # (Auto) 0.1x10^3/uL (0.0-0.2) Reticulocyte Count (auto) 0.8% (0.5-2.5) Haptoglobin 319mg/dL (34-200) Prothrombin Time 15.1SEC (11.7-14.0) Prothromb Time International Ratio 1.3 (0.8-1.1) Sodium Level 144mmol/L (136-145) Potassium Level 4.8mmol/L (3.5-5.1) Chloride Level 111mmol/L (98-107) Carbon Dioxide Level 24mmol/L (21-32) Anion Gap 9 (6-14) Blood Urea Nitrogen 31mg/dL (7-20) Creatinine 2.5mg/dL (0.6-1.0) Estimated GFR (Cockcroft-Gault) 23.2 Glucose Level 99mg/dL (70-99) Calcium Level 8.6mg/dL (8.5-10.1) Magnesium Level 2.0mg/dL (1.8-2.4) Iron Level 31ug/dL (50-170) Total Iron Binding Capacity 186ug/dL (250-450) Iron Saturation 17% (15-34) Ferritin 211ng/mL (8-252) Total Bilirubin 0.2mg/dL (0.2-1.0) Direct Bilirubin 0.1mg/dL (0.0-0.2) Aspartate Amino Transf (AST/SGOT) 14U/L (15-37) Alanine Aminotransferase (ALT/SGPT) 10U/L (14-59) Alkaline Phosphatase 95U/L (46-116) Lactate Dehydrogenase 205U/L (81-234) Creatine Kinase 54U/L (26-192) Creatine Kinase MB (Mass) < 0.5ng/mL (0.0-3.6) Creatine Kinase MB Relative Index % (0-4) Troponin I Quantitative < 0.017ng/mL (0.000-0.055) < 0.017ng/mL (0.000-0.055) OU-Swa-N-Type Natriuretic Peptide 1196pg/mL (0-124) Total Protein 7.3g/dL (6.4-8.2) Albumin 3.0g/dL (3.4-5.0) Stool Occult Blood Negative (NEG) Urine Collection Type Void Urine Color Yellow Urine Clarity Clear Urine pH 6.5 Urine Specific [place] 1.010 Urine Protein Negativemg/dL (NEG-TRACE) Urine Glucose (UA) Negativemg/dL (NEG) Urine Ketones (Stick) Negativemg/dL (NEG) Urine Blood Negative (NEG) Urine Nitrite Negative (NEG) Urine Bilirubin Negative (NEG) Urine Urobilinogen Dipstick 1.0mg/dL (0.2 mg/dL) Urine Leukocyte Esterase Trace (NEG) Urine RBC 0/HPF (0-2) Urine WBC 1-4/HPF (0-4) Urine Squamous Epithelial Cells Many/LPF Urine Bacteria Few/HPF (0-FEW) Urine Hyaline Casts Few/HPF Urine Mucus Slight/LPF Test 08/23/16 07:05 White Blood Count 6.0x10^3/uL (4.0-11.0) Red Blood Count 3.18x10^6/uL (3.50-5.40) Hemoglobin 8.8g/dL (12.0-15.5) Hematocrit 27.5% (36.0-47.0) Mean Corpuscular Volume 87fL (79-100) Mean Corpuscular Hemoglobin 28pg (25-35) Mean Corpuscular Hemoglobin Concent 32g/dL (31-37) Red Cell Distribution Width 16.4% (11.5-14.5) Platelet Count 176x10^3/uL (140-400) Neutrophils (%) (Auto) 65% (31-73) Lymphocytes (%) (Auto) 20% (24-48) Monocytes (%) (Auto) 10% (0-9) Eosinophils (%) (Auto) 3% (0-3) Basophils (%) (Auto) 1% (0-3) Neutrophils # (Auto) 3.9x10^3uL (1.8-7.7) Lymphocytes # (Auto) 1.2x10^3/uL (1.0-4.8) Monocytes # (Auto) 0.6x10^3/uL (0.0-1.1) Eosinophils # (Auto) 0.2x10^3/uL (0.0-0.7) Basophils # (Auto) 0.1x10^3/uL (0.0-0.2) Sodium Level 141mmol/L (136-145) Potassium Level 4.5mmol/L (3.5-5.1) Chloride Level 110mmol/L (98-107) Carbon Dioxide Level 21mmol/L (21-32) Anion Gap 10 (6-14) Blood Urea Nitrogen 29mg/dL (7-20) Creatinine 2.2mg/dL (0.6-1.0) Estimated GFR (Cockcroft-Gault) 26.9 Glucose Level 97mg/dL (70-99) Calcium Level 8.6mg/dL (8.5-10.1) Troponin I Quantitative 0.079ng/mL (0.000-0.055) HAYDE RAMSAY MD Aug 23, 2016 11:41
--- NOTE | 2016-08-23 14:14 | PDOC ---
Provider Note Provider Note Onc consult dictated- [id number] Triple negative breast cancer of left breast, stage unknown s/p I&D for Strep B infection CKD stage IV Anemia of CKD on aranesp s/p transfusion 08/23 Illiteracy Ordered diagnostic mammogram Rad onc consult She desires breast conservation. Will be poor candidate for chemo. Will f/u in clinic after surgery. Discussed with Dr. Amaya and Gena, also shraddha Reddy who helps in decision making. LYDIA PATTERSON DO Aug 23, 2016 14:14
--- NOTE | 2016-08-23 14:34 | PDOC2 ---
[facility] [address] [address] [facility] 08/23/16 1434: CONSULT Date of Consult Date of Consult DATE: 08/23/16 TIME: 14:23 Reason for Consult Reason for Consult: breast abscess Referring Physician Referring Physician: Dr Lehman Identification/Chief Complaint Chief Complaint renal failure Source Source: Chart review, Patient History of Present Illness Reason for Visit: Abnormal labs, acute renal failure Recently breast abscess I&D by Dr Ching Currently sitting up in chair, talking on phone Past Medical History Cardiovascular: CHF, HTN, Hyperlipidemia Pulmonary: No pertinent hx GI: No pertinent hx Heme/Onc: Anemia NOS Hepatobiliary: No pertinent hx Psych: No pertinent hx Musculoskeletal: Osteoarthritis Rheumatologic: No pertinent hx Infectious disease: No pertinent hx Renal/: Chronic renal insuff Endocrine: No pertinent hx Past Surgical History Past Surgical History: Total knee replacement, Other Family History Family History: Diabetes Social History ALCOHOL: none Drugs: None Lives: Alone Domestic Violence: Neg Current Problem List Problem List Problems Medical Problems: (1) Anemia Status: Acute Current Medications Current Medications Current Medications Ondansetron HCl (Zofran) 4 mg PRN Q8HRS PRN IV NAUSEA/VOMITING; Start 08/22/16 at 13:45; Stop 08/23/16 at 13:44; Status DC Atorvastatin Calcium (Lipitor) 40 mg QHS PO Last administered on 08/22/16 22: 33; Start 08/22/16 at 21:00 Bupropion HCl (Wellbutrin Sr) 150 mg BID PO Last administered on 08/23/16 08: 52; Start 08/22/16 at 21:00 Metoprolol Tartrate (Lopressor) 25 mg BID PO Last administered on 08/23/16 08: 53; Start 08/22/16 at 21:00 Vitamin D (Vitamin D3) 2,000 unit DAILY PO Last administered on 08/23/16 08:54 ; Start 08/23/16 at 09:00 Cetirizine HCl (Zyrtec) 10 mg DAILY PO Last administered on 08/23/16 08:52; Start 08/23/16 at 09:00 Acetaminophen (Tylenol) 500 mg 1X ONCE PO Last administered on 08/22/16 17:53 ; Start 08/22/16 at 17:15; Stop 08/22/16 at 17:21; Status DC Acetaminophen (Tylenol) 500 mg PRN Q4HRS PRN PO MILD PAIN / TEMP Last administered on 08/23/16t 08:58; Start 08/23/16 at 01:00 Acetaminophen (Tylenol) 1,000 mg PRN Q4HRS PRN PO MILD PAIN; Start 08/23/16 at 01:00 Active Scripts Active Reported Loratadine 10 Mg Tablet 1 Tab PO DAILY Atorvastatin Calcium 40 Mg Tablet 1 Tab PO QHS Metoprolol Tartrate 25 Mg Tablet 1 Tab PO BID Losartan-Hctz 100-25 Mg Tab (Losartan/Hydrochlorothiazide) 1 Each Tablet 1 Tab PO DAILY Furosemide 40 Mg Tablet 1 Tab PO DAILY Aspirin 81 Mg Tab.chew 1 Tab PO DAILY Vitamin D (Cholecalciferol (Vitamin D3)) 2,000 Unit Capsule 1 Cap PO DAILY Wellbutrin Sr (Bupropion Hcl) 150 Mg Tablet.er 1 Tab PO BID Allergies Allergies: Coded Allergies: No Known Drug Allergies (Unverified , 08/12/16) ROS General: No: Chills, Other (fevers) PSYCHOLOGICAL ROS: No: Anxiety, Depression Eyes: No Blurry vision, No Double vision HEENT: No: Heacaches, Sore Throat Hematological and Lymphatic: No: Bleeding Problems, Blood Clots Respiratory: No: Cough, Shortness of breath Cardiovascular: No Chest Pain, No Palpitations Gastrointestinal: No Nausea, No Vomiting Genitourinary: No Hematuria Musculoskeletal: No Joint Pain, No Muscle Pain Neurological: No Confusion, No Numbness/Tingling Skin: Yes Other (see hpi) Physical Exam General: Alert, Oriented X3, Cooperative, No acute distress HEENT: PERRLA, Mucous membr. moist/pink Lungs: Clear to auscultation, Normal air movement Heart: Regular rate, Normal S1, Normal S2, No murmurs Abdomen: Normal bowel sounds, Soft Extremities: No clubbing, Normal pulses Skin: Other (left breast wound packed) Neuro: Normal speech, Sensation intact Psych/Mental Status: Mental status NL, Mood NL MUSCULOSKELETAL: No deformity, No swelling Vitals VITALS Vital Signs Date Time Temp Pulse Resp B/P Pulse Ox O2 Delivery O2 Flow Rate FiO2 08/23/16 11:00 98.0 50 18 141/64 97 Room Air 98.0 08/22/16 19:45 99.0 Labs Labs Laboratory Tests Test 08/22/16 12:15 08/22/16 13:25 08/22/16 13:34 08/22/16 19:25 White Blood Count 4.5x10^3/uL (4.0-11.0) Red Blood Count 2.59x10^6/uL (3.50-5.40) Hemoglobin 7.0g/dL (12.0-15.5) Hematocrit 22.5% (36.0-47.0) Mean Corpuscular Volume 87fL (79-100) Mean Corpuscular Hemoglobin 27pg (25-35) Mean Corpuscular Hemoglobin Concent 31g/dL (31-37) Red Cell Distribution Width 17.4% (11.5-14.5) Platelet Count 190x10^3/uL (140-400) Neutrophils (%) (Auto) 53% (31-73) Lymphocytes (%) (Auto) 30% (24-48) Monocytes (%) (Auto) 12% (0-9) Eosinophils (%) (Auto) 5% (0-3) Basophils (%) (Auto) 1% (0-3) Neutrophils # (Auto) 2.4x10^3uL (1.8-7.7) Lymphocytes # (Auto) 1.3x10^3/uL (1.0-4.8) Monocytes # (Auto) 0.5x10^3/uL (0.0-1.1) Eosinophils # (Auto) 0.2x10^3/uL (0.0-0.7) Basophils # (Auto) 0.1x10^3/uL (0.0-0.2) Reticulocyte Count (auto) 0.8% (0.5-2.5) Haptoglobin 319mg/dL (34-200) Prothrombin Time 15.1SEC (11.7-14.0) Prothromb Time International Ratio 1.3 (0.8-1.1) Sodium Level 144mmol/L (136-145) Potassium Level 4.8mmol/L (3.5-5.1) Chloride Level 111mmol/L (98-107) Carbon Dioxide Level 24mmol/L (21-32) Anion Gap 9 (6-14) Blood Urea Nitrogen 31mg/dL (7-20) Creatinine 2.5mg/dL (0.6-1.0) Estimated GFR (Cockcroft-Gault) 23.2 Glucose Level 99mg/dL (70-99) Calcium Level 8.6mg/dL (8.5-10.1) Magnesium Level 2.0mg/dL (1.8-2.4) Iron Level 31ug/dL (50-170) Total Iron Binding Capacity 186ug/dL (250-450) Iron Saturation 17% (15-34) Ferritin 211ng/mL (8-252) Total Bilirubin 0.2mg/dL (0.2-1.0) Direct Bilirubin 0.1mg/dL (0.0-0.2) Aspartate Amino Transf (AST/SGOT) 14U/L (15-37) Alanine Aminotransferase (ALT/SGPT) 10U/L (14-59) Alkaline Phosphatase 95U/L (46-116) Lactate Dehydrogenase 205U/L (81-234) Creatine Kinase 54U/L (26-192) Creatine Kinase MB (Mass) < 0.5ng/mL (0.0-3.6) Creatine Kinase MB Relative Index % (0-4) Troponin I Quantitative < 0.017ng/mL (0.000-0.055) < 0.017ng/mL (0.000-0.055) DR-Uiu-F-Type Natriuretic Peptide 1196pg/mL (0-124) Total Protein 7.3g/dL (6.4-8.2) Albumin 3.0g/dL (3.4-5.0) Stool Occult Blood Negative (NEG) Urine Collection Type Void Urine Color Yellow Urine Clarity Clear Urine pH 6.5 Urine Specific [place] 1.010 Urine Protein Negativemg/dL (NEG-TRACE) Urine Glucose (UA) Negativemg/dL (NEG) Urine Ketones (Stick) Negativemg/dL (NEG) Urine Blood Negative (NEG) Urine Nitrite Negative (NEG) Urine Bilirubin Negative (NEG) Urine Urobilinogen Dipstick 1.0mg/dL (0.2 mg/dL) Urine Leukocyte Esterase Trace (NEG) Urine RBC 0/HPF (0-2) Urine WBC 1-4/HPF (0-4) Urine Squamous Epithelial Cells Many/LPF Urine Bacteria Few/HPF (0-FEW) Urine Hyaline Casts Few/HPF Urine Mucus Slight/LPF Test 08/23/16 07:05 08/23/16 13:45 White Blood Count 6.0x10^3/uL (4.0-11.0) Red Blood Count 3.18x10^6/uL (3.50-5.40) Hemoglobin 8.8g/dL (12.0-15.5) Hematocrit 27.5% (36.0-47.0) Mean Corpuscular Volume 87fL (79-100) Mean Corpuscular Hemoglobin 28pg (25-35) Mean Corpuscular Hemoglobin Concent 32g/dL (31-37) Red Cell Distribution Width 16.4% (11.5-14.5) Platelet Count 176x10^3/uL (140-400) Neutrophils (%) (Auto) 65% (31-73) Lymphocytes (%) (Auto) 20% (24-48) Monocytes (%) (Auto) 10% (0-9) Eosinophils (%) (Auto) 3% (0-3) Basophils (%) (Auto) 1% (0-3) Neutrophils # (Auto) 3.9x10^3uL (1.8-7.7) Lymphocytes # (Auto) 1.2x10^3/uL (1.0-4.8) Monocytes # (Auto) 0.6x10^3/uL (0.0-1.1) Eosinophils # (Auto) 0.2x10^3/uL (0.0-0.7) Basophils # (Auto) 0.1x10^3/uL (0.0-0.2) Sodium Level 141mmol/L (136-145) Potassium Level 4.5mmol/L (3.5-5.1) Chloride Level 110mmol/L (98-107) Carbon Dioxide Level 21mmol/L (21-32) Anion Gap 10 (6-14) Blood Urea Nitrogen 29mg/dL (7-20) Creatinine 2.2mg/dL (0.6-1.0) Estimated GFR (Cockcroft-Gault) 26.9 Glucose Level 97mg/dL (70-99) Calcium Level 8.6mg/dL (8.5-10.1) Troponin I Quantitative 0.079ng/mL (0.000-0.055) < 0.017ng/mL (0.000-0.055) Laboratory Tests Test 08/22/16 19:25 08/23/16 07:05 08/23/16 13:45 Troponin I Quantitative < 0.017ng/mL (0.000-0.055) 0.079ng/mL (0.000-0.055) < 0.017ng/mL (0.000-0.055) White Blood Count 6.0x10^3/uL (4.0-11.0) Red Blood Count 3.18x10^6/uL (3.50-5.40) Hemoglobin 8.8g/dL (12.0-15.5) Hematocrit 27.5% (36.0-47.0) Mean Corpuscular Volume 87fL (79-100) Mean Corpuscular Hemoglobin 28pg (25-35) Mean Corpuscular Hemoglobin Concent 32g/dL (31-37) Red Cell Distribution Width 16.4% (11.5-14.5) Platelet Count 176x10^3/uL (140-400) Neutrophils (%) (Auto) 65% (31-73) Lymphocytes (%) (Auto) 20% (24-48) Monocytes (%) (Auto) 10% (0-9) Eosinophils (%) (Auto) 3% (0-3) Basophils (%) (Auto) 1% (0-3) Neutrophils # (Auto) 3.9x10^3uL (1.8-7.7) Lymphocytes # (Auto) 1.2x10^3/uL (1.0-4.8) Monocytes # (Auto) 0.6x10^3/uL (0.0-1.1) Eosinophils # (Auto) 0.2x10^3/uL (0.0-0.7) Basophils # (Auto) 0.1x10^3/uL (0.0-0.2) Sodium Level 141mmol/L (136-145) Potassium Level 4.5mmol/L (3.5-5.1) Chloride Level 110mmol/L (98-107) Carbon Dioxide Level 21mmol/L (21-32) Anion Gap 10 (6-14) Blood Urea Nitrogen 29mg/dL (7-20) Creatinine 2.2mg/dL (0.6-1.0) Estimated GFR (Cockcroft-Gault) 26.9 Glucose Level 97mg/dL (70-99) Calcium Level 8.6mg/dL (8.5-10.1) Assessment/Plan Assessment/Plan Triple negative breast cancer of left breast ARF, CKD HTN continue wound care, oncology consulted ATIF CHING MD 08/23/16 1459: CONSULT Allergies Allergies: Coded Allergies: No Known Drug Allergies (Unverified , 08/12/16) Assessment/Plan Assessment/Plan pt seen earlier today, interviewed, examined known from recent (08/12/16) I and D and biopsy of breast abscess path shows invasive carcinoma will ask oncology to see will follow continue wound care Thanks for consult [facility] [employer] Aug 23, 2016 14:34 ATIF CHING MD Aug 23, 2016 14:59
--- NOTE | 2016-08-23 17:45 | PDOC ---
PROGRESS NOTES Subjective Subjective She is only complaining of left leg pain, no chest pain, no SOA, breast not bleeding, she tolerated transfusion without reaction and is making urine. Anemia better and creatinine better. Hemoccult was negative Objective Objective Vital Signs Date Time Temp Pulse Resp B/P Pulse Ox O2 Delivery O2 Flow Rate FiO2 08/23/16 15:00 98.0 56 18 135/74 97 Room Air 98.0 08/22/16 19:45 99.0 Intake and Output 08/23/16 07:00 Intake Total 1170 ml Balance 1170 ml Intake Oral 880 ml Blood Product IV Normal Saline Flush 290 ml # Voids 3 Physical Exam Abdomen: Normal bowel sounds, Soft Heart: Regular rate Extremities: No clubbing, No cyanosis General: Alert, Oriented X3, Cooperative HEENT: Atraumatic Lungs: Clear to auscultation Neck: Supple Neuro: Normal speech Psych/Mental Status: Mental status NL Skin: Other (left breast abscess dressed, no blood on dressing) Assessment Assessment Problems Medical Problems: acute on chronic renal failure acute on chronic Anemia breast cancer, newly diagnosed breast abscess, s/p I&D, group B strep right sciatica Status: Acute Plan Plan of Care transfused, renal function improved from a week ago, Renal, surgery, onc following Comment Review of Relevant I have reviewed the following items [place] (where applicable) has been applied. Labs Laboratory Tests Test 08/22/16 12:15 08/22/16 13:25 08/22/16 13:34 08/22/16 19:25 White Blood Count 4.5x10^3/uL (4.0-11.0) Red Blood Count 2.59x10^6/uL (3.50-5.40) Hemoglobin 7.0g/dL (12.0-15.5) Hematocrit 22.5% (36.0-47.0) Mean Corpuscular Volume 87fL (79-100) Mean Corpuscular Hemoglobin 27pg (25-35) Mean Corpuscular Hemoglobin Concent 31g/dL (31-37) Red Cell Distribution Width 17.4% (11.5-14.5) Platelet Count 190x10^3/uL (140-400) Neutrophils (%) (Auto) 53% (31-73) Lymphocytes (%) (Auto) 30% (24-48) Monocytes (%) (Auto) 12% (0-9) Eosinophils (%) (Auto) 5% (0-3) Basophils (%) (Auto) 1% (0-3) Neutrophils # (Auto) 2.4x10^3uL (1.8-7.7) Lymphocytes # (Auto) 1.3x10^3/uL (1.0-4.8) Monocytes # (Auto) 0.5x10^3/uL (0.0-1.1) Eosinophils # (Auto) 0.2x10^3/uL (0.0-0.7) Basophils # (Auto) 0.1x10^3/uL (0.0-0.2) Reticulocyte Count (auto) 0.8% (0.5-2.5) Haptoglobin 319mg/dL (34-200) Prothrombin Time 15.1SEC (11.7-14.0) Prothromb Time International Ratio 1.3 (0.8-1.1) Sodium Level 144mmol/L (136-145) Potassium Level 4.8mmol/L (3.5-5.1) Chloride Level 111mmol/L (98-107) Carbon Dioxide Level 24mmol/L (21-32) Anion Gap 9 (6-14) Blood Urea Nitrogen 31mg/dL (7-20) Creatinine 2.5mg/dL (0.6-1.0) Estimated GFR (Cockcroft-Gault) 23.2 Glucose Level 99mg/dL (70-99) Calcium Level 8.6mg/dL (8.5-10.1) Magnesium Level 2.0mg/dL (1.8-2.4) Iron Level 31ug/dL (50-170) Total Iron Binding Capacity 186ug/dL (250-450) Iron Saturation 17% (15-34) Ferritin 211ng/mL (8-252) Total Bilirubin 0.2mg/dL (0.2-1.0) Direct Bilirubin 0.1mg/dL (0.0-0.2) Aspartate Amino Transf (AST/SGOT) 14U/L (15-37) Alanine Aminotransferase (ALT/SGPT) 10U/L (14-59) Alkaline Phosphatase 95U/L (46-116) Lactate Dehydrogenase 205U/L (81-234) Creatine Kinase 54U/L (26-192) Creatine Kinase MB (Mass) < 0.5ng/mL (0.0-3.6) Creatine Kinase MB Relative Index % (0-4) Troponin I Quantitative < 0.017ng/mL (0.000-0.055) < 0.017ng/mL (0.000-0.055) TX-Rxw-V-Type Natriuretic Peptide 1196pg/mL (0-124) Total Protein 7.3g/dL (6.4-8.2) Albumin 3.0g/dL (3.4-5.0) Stool Occult Blood Negative (NEG) Urine Collection Type Void Urine Color Yellow Urine Clarity Clear Urine pH 6.5 Urine Specific Forsan 1.010 Urine Protein Negativemg/dL (NEG-TRACE) Urine Glucose (UA) Negativemg/dL (NEG) Urine Ketones (Stick) Negativemg/dL (NEG) Urine Blood Negative (NEG) Urine Nitrite Negative (NEG) Urine Bilirubin Negative (NEG) Urine Urobilinogen Dipstick 1.0mg/dL (0.2 mg/dL) Urine Leukocyte Esterase Trace (NEG) Urine RBC 0/HPF (0-2) Urine WBC 1-4/HPF (0-4) Urine Squamous Epithelial Cells Many/LPF Urine Bacteria Few/HPF (0-FEW) Urine Hyaline Casts Few/HPF Urine Mucus Slight/LPF Test 08/23/16 07:05 08/23/16 13:45 White Blood Count 6.0x10^3/uL (4.0-11.0) Red Blood Count 3.18x10^6/uL (3.50-5.40) Hemoglobin 8.8g/dL (12.0-15.5) Hematocrit 27.5% (36.0-47.0) Mean Corpuscular Volume 87fL (79-100) Mean Corpuscular Hemoglobin 28pg (25-35) Mean Corpuscular Hemoglobin Concent 32g/dL (31-37) Red Cell Distribution Width 16.4% (11.5-14.5) Platelet Count 176x10^3/uL (140-400) Neutrophils (%) (Auto) 65% (31-73) Lymphocytes (%) (Auto) 20% (24-48) Monocytes (%) (Auto) 10% (0-9) Eosinophils (%) (Auto) 3% (0-3) Basophils (%) (Auto) 1% (0-3) Neutrophils # (Auto) 3.9x10^3uL (1.8-7.7) Lymphocytes # (Auto) 1.2x10^3/uL (1.0-4.8) Monocytes # (Auto) 0.6x10^3/uL (0.0-1.1) Eosinophils # (Auto) 0.2x10^3/uL (0.0-0.7) Basophils # (Auto) 0.1x10^3/uL (0.0-0.2) Sodium Level 141mmol/L (136-145) Potassium Level 4.5mmol/L (3.5-5.1) Chloride Level 110mmol/L (98-107) Carbon Dioxide Level 21mmol/L (21-32) Anion Gap 10 (6-14) Blood Urea Nitrogen 29mg/dL (7-20) Creatinine 2.2mg/dL (0.6-1.0) Estimated GFR (Cockcroft-Gault) 26.9 Glucose Level 97mg/dL (70-99) Calcium Level 8.6mg/dL (8.5-10.1) Troponin I Quantitative 0.079ng/mL (0.000-0.055) < 0.017ng/mL (0.000-0.055) Laboratory Tests Test 08/22/16 19:25 08/23/16 07:05 08/23/16 13:45 Troponin I Quantitative < 0.017ng/mL (0.000-0.055) 0.079ng/mL (0.000-0.055) < 0.017ng/mL (0.000-0.055) White Blood Count 6.0x10^3/uL (4.0-11.0) Red Blood Count 3.18x10^6/uL (3.50-5.40) Hemoglobin 8.8g/dL (12.0-15.5) Hematocrit 27.5% (36.0-47.0) Mean Corpuscular Volume 87fL (79-100) Mean Corpuscular Hemoglobin 28pg (25-35) Mean Corpuscular Hemoglobin Concent 32g/dL (31-37) Red Cell Distribution Width 16.4% (11.5-14.5) Platelet Count 176x10^3/uL (140-400) Neutrophils (%) (Auto) 65% (31-73) Lymphocytes (%) (Auto) 20% (24-48) Monocytes (%) (Auto) 10% (0-9) Eosinophils (%) (Auto) 3% (0-3) Basophils (%) (Auto) 1% (0-3) Neutrophils # (Auto) 3.9x10^3uL (1.8-7.7) Lymphocytes # (Auto) 1.2x10^3/uL (1.0-4.8) Monocytes # (Auto) 0.6x10^3/uL (0.0-1.1) Eosinophils # (Auto) 0.2x10^3/uL (0.0-0.7) Basophils # (Auto) 0.1x10^3/uL (0.0-0.2) Sodium Level 141mmol/L (136-145) Potassium Level 4.5mmol/L (3.5-5.1) Chloride Level 110mmol/L (98-107) Carbon Dioxide Level 21mmol/L (21-32) Anion Gap 10 (6-14) Blood Urea Nitrogen 29mg/dL (7-20) Creatinine 2.2mg/dL (0.6-1.0) Estimated GFR (Cockcroft-Gault) 26.9 Glucose Level 97mg/dL (70-99) Calcium Level 8.6mg/dL (8.5-10.1) Medications Current Medications Ondansetron HCl (Zofran) 4 mg PRN Q8HRS PRN IV NAUSEA/VOMITING; Start 08/22/16 at 13:45; Stop 08/23/16 at 13:44; Status DC Atorvastatin Calcium (Lipitor) 40 mg QHS PO Last administered on 08/22/16 22: 33; Start 08/22/16 at 21:00 Bupropion HCl (Wellbutrin Sr) 150 mg BID PO Last administered on 08/23/16 08: 52; Start 08/22/16 at 21:00 Metoprolol Tartrate (Lopressor) 25 mg BID PO Last administered on 08/23/16 08: 53; Start 08/22/16 at 21:00 Vitamin D (Vitamin D3) 2,000 unit DAILY PO Last administered on 08/23/16 08:54 ; Start 08/23/16 at 09:00 Cetirizine HCl (Zyrtec) 10 mg DAILY PO Last administered on 08/23/16 08:52; Start 08/23/16 at 09:00 Acetaminophen (Tylenol) 500 mg 1X ONCE PO Last administered on 08/22/16 17:53 ; Start 08/22/16 at 17:15; Stop 08/22/16 at 17:21; Status DC Acetaminophen (Tylenol) 500 mg PRN Q4HRS PRN PO MILD PAIN / TEMP Last administered on 08/23/16 08:58; Start 08/23/16 at 01:00 Acetaminophen (Tylenol) 1,000 mg PRN Q4HRS PRN PO MILD PAIN; Start 08/23/16 at 01:00 Active Scripts Active Reported Loratadine 10 Mg Tablet 1 Tab PO DAILY Atorvastatin Calcium 40 Mg Tablet 1 Tab PO QHS Metoprolol Tartrate 25 Mg Tablet 1 Tab PO BID Losartan-Hctz 100-25 Mg Tab (Losartan/Hydrochlorothiazide) 1 Each Tablet 1 Tab PO DAILY Furosemide 40 Mg Tablet 1 Tab PO DAILY Aspirin 81 Mg Tab.chew 1 Tab PO DAILY Vitamin D (Cholecalciferol (Vitamin D3)) 2,000 Unit Capsule 1 Cap PO DAILY Wellbutrin Sr (Bupropion Hcl) 150 Mg Tablet.er 1 Tab PO BID Vitals/I & O Vital Sign - Last 24 Hours 08/22/16 08/22/16 08/22/16 08/23/16 19:45 22:33 23:38 01:19 Temp 98.6 98.6 98.5 98.6 98.6 98.5 Pulse 69 69 51 47 Resp 20 18 18 B/P 161/61 161/61 124/60 115/56 Pulse Ox 96 98 O2 Delivery Room Air Room Air Room Air O2 Flow Rate 99.0 08/23/16 08/23/16 08/23/16 08/23/16 02:07 02:22 03:00 03:20 Temp 98.5 97.7 97.7 98.4 98.5 97.7 97.7 98.4 Pulse 47 57 57 51 Resp 18 18 18 16 B/P 115/86 149/72 149/72 140/62 Pulse Ox 96 O2 Delivery Room Air 08/23/16 08/23/16 08/23/16 08/23/16 04:25 06:18 07:00 08:00 Temp 99.0 97.9 99.0 97.9 Pulse 49 51 Resp 20 18 B/P 138/63 129/64 Pulse Ox 94 O2 Delivery Room Air Room Air Room Air 08/23/16 08/23/16 08/23/16 08:53 11:00 15:00 Temp 98.0 98.0 98.0 98.0 Pulse 51 50 56 Resp 18 18 B/P 129/64 141/64 135/74 Pulse Ox 97 97 O2 Delivery Room Air Room Air Intake and Output 08/22/16 08/22/16 08/23/16 15:00 23:00 07:00 Intake Total 290 ml 240 ml 640 ml Balance 290 ml 240 ml 640 ml MICHI STEVEN MD Aug 23, 2016 17:45
[2016-08-23] MEDS: ATORVASTATIN CALCIUM 40 MG TABLET. PO SCH (22:02)
[2016-08-24 03:00] VITALS: BP 129/58
--- NOTE | 2016-08-24 03:23 | CONS ---
DATE OF CONSULTATION: PRIMARY PHYSICIAN: Dr. Muhammad. REASON FOR CONSULTATION: Chronic renal insufficiency. HISTORY OF PRESENT ILLNESS: The patient is a 70-year-old female who is a very poor historian. She thinks she follows with Dr. Greene for her CKD needs. She was recently found to have a breast abscess and had I and D by Dr. Amaya. She still has some foul smelling discharge in that area. I did not open that area; however, she was found to have a creatinine of 3.8 with a GFR of 15, whereby her baseline creatinine runs about 2.5. On arrival here; however, her creatinine was 2.5, and now down to 2.2. We were asked to see her for renal insufficiency. For rest of the details, see electronic records. HAYDE RAMSAY MD DR: OCTAVIO/alexia JOB#: [id number] / [id number]
--- NOTE | 2016-08-24 05:08 | CONS ---
DATE OF CONSULTATION: 08/23/2016 REFERRING PROVIDER: Dr. Amaya. REASON FOR CONSULTATION: Breast cancer. HISTORY OF PRESENT ILLNESS: The patient is a 70-year-old female who was admitted to the hospital following left breast abscess incision and drainage. She was found to have acute on chronic anemia requiring transfusion. While here, her pathology has returned consistent with poorly differentiated invasive ductal carcinoma, triple negative, Ki-67 75%. I do not have access to any recent screening mammograms performed, possibly last in 2014. Overall, her performance status appears poor, but she denies any complaints other than her chronic lower extremity edema. Her niece shares that the patient is illiterate and understands her medical care poorly. PAST MEDICAL HISTORY: Lumbar stenosis, osteoarthritis, hypertension, chronic kidney disease stage 4, anemia of chronic kidney disease, on Aranesp injections. Depression, hyperlipidemia. PAST SURGICAL HISTORY: Knee replacement, left femur fracture repair, right ankle surgery. FAMILY HISTORY: Mom had diabetes. Dad from unknown causes. Two sisters have from unknown causes. Two living brothers whose health is unknown to her. SOCIAL HISTORY: She lives alone and appears to take care of herself. No tobacco, alcohol or drug use, though she did previously smoke several decades ago. Illiterate per niece. ALLERGIES: No known drug allergies. CURRENT MEDICATIONS: Zyrtec, vitamin D, Tylenol, Lopressor, Wellbutrin, Lipitor. REVIEW OF SYSTEMS: Ten point review of systems completed and negative with the exception that mentioned in the HPI. PHYSICAL EXAMINATION: VITAL SIGNS: Temperature 98.0, pulse 50, respiratory rate 18, blood pressure 141/64, 97% O2 on room air. GENERAL: She is alert and oriented. She is in no distress at this time. HEENT: Extraocular muscles are intact. Sclerae are without icterus. Mucous membranes are moist. CARDIOVASCULAR: Heart is regular in rhythm and rate. LUNGS: Clear to auscultation bilaterally. BREASTS: Left breast has surgical bandages in place prohibiting thorough palpation of any breast masses. She does have very pendulous breasts, which may make full exam difficult. ABDOMEN: Soft, nontender. EXTREMITIES: 1+ edema right lower extremity. LYMPH: No palpable cervical, supraclavicular adenopathy. Concern for left axillary adenopathy. Positioning of patient currently making this difficult for me to obtain full exam. NEUROLOGIC: No focal deficits. IMAGING/LABORATORY DATA: CBC notable for hemoglobin 7.0 up to 8.8 after 1 unit of blood. Reticulocyte count is 0.8, haptoglobin elevated at 319. WBC and platelets are normal. Creatinine 2.2, BUN 29, EGFR 27. Serum iron 31, TIBC 186. Ferritin 211. No previous mammograms available. ASSESSMENT AND PLAN: The patient is a 70-year-old female with the following medical problems: 1. Triple negative, poorly differentiated carcinoma of the left breast. The full size and extent of the tumor are not yet known. I am going to order a bilateral diagnostic mammogram. She is interested in breast conservation, so I would need lumpectomy and radiation. I am concerned how well this would be tolerated. I have consulted Dr. Avery. Mastectomy is another option, more preferred in this case I believe. We discussed her case at Tumor Board Conference today. I think she is going to be a poor candidate for chemotherapy given her comorbidities, especially including advanced kidney disease and chronic anemia requiring Aranesp injections. I will follow up after her surgery in clinic to determine if there are other appropriate adjuvant treatments. Chemotherapy would bring a high rate of complications and likely be tolerated very poorly. 2. Anemia of chronic kidney disease, on Aranesp. Needed a transfusion yesterday. Likely would limit my ability to give chemotherapy when she is already on Aranesp and requiring transfusions. 3. Chronic kidney disease, stage 4. Nephrology consultation is also pending. Thank you for allowing me to participate in her care. I discussed this case with Dr. Avery and Jose Luis. I will also set up outpatient followup as above. LYDIA PATTERSON DO DR: Teresa JOB#: [id number] / [id number] SHANON
--- NOTE | 2016-08-24 05:40 | CONS ---
DATE OF CONSULTATION: 08/23/2016 REFERRING DOCTOR: Dr. Tianna Lozano. DIAGNOSES: Locally advanced possible stage III (T4N2M0) infiltrating ductal carcinoma of the left breast, presenting with left breast abscess. She underwent open drainage of the abscess at which time malignancy was found. She is triple negative. She has underlying chronic renal insufficiency and anemia. We were asked to see regarding the role of postoperative radiation treatment in her care. ICD-10 50.112 HISTORY OF PRESENT ILLNESS: The patient was seen by Dr. Malik Muhammad for her left breast abscess. Mammography by report was suggestive of underlying malignancy versus infection, that mammogram is not available for review at this time. She was seen by Dr. Everardo Amaya, who performed incision and drainage of the left central breast, which did disclose high grade infiltrating ductal carcinoma, ER and MI negative, HER2/dionna negative. Currently, she is feeling better postoperatively. She has no fevers, chills, nausea, or vomiting or significant breast pain. PAST MEDICAL HISTORY: Remarkable for chronic renal insufficiency with current creatinine of 2.2, secondary anemia on Aricept, hypertension, lumbar spinal stenosis, osteoarthritis, knee replacements, and history of left femur fracture. ALLERGIES: No known allergies. MEDICATIONS: See hospital list. FAMILY HISTORY: Not obtained. SOCIAL HISTORY: She is , has one daughter and one son, both living in [place]. No significant occupation in the past, has a distant history of cigarette and alcohol use. Lives in a senior assisted living apartment. PHYSICAL EXAMINATION: GENERAL: Revealed a pleasant woman appearing older than her chronologic age, conversant with limited understanding of her current illness. HEENT: She had no scleral icterus. LYMPH NODES: She had multiple palpable lymph nodes in the left axilla, largest of which was 2 cm, mobile, and hard. Left breast had an open incision centrally. No drainage, central induration with no discernible mass. Surrounding skin was grossly normal in appearance. Left arm had no edema and had full range of motion. She had restrictive movement of her right arm. ABDOMEN: Examination revealed obesity with no hepatomegaly, mass, or tenderness. EXTREMITIES: She had modest pedal edema without clubbing or cyanosis. LABORATORY STUDIES: CBC from 08/23/2016, hemoglobin 8.8, white count 6000, platelet count 176,000. Chemistry panel: Sodium 141, potassium 4.5, creatinine 2.2, BUN 29. Liver function tests within normal limits. IMAGING STUDIES: Here include no current imaging. ASSESSMENT AND PLAN: In summary, my impression is that of likely locally advanced stage 3 (T4N2M0) high-grade triple negative infiltrating ductal carcinoma of the left breast, presenting with a breast abscess extent of her local disease is unknown. Outside mammography obtained prior to her incision and drainage is not available as yet, in any case, infection and malignancy will be difficult to separate on the mammogram and as such, my recommendation would be mastectomy and lymph node sampling as I feel that she is likely to be a poor candidate for breast preservation. Given the locally advanced status of her primary disease, she should undergo conventional visceral staging as well. I did endeavor to reach her niece, Maureen Lozano [phone], and had left the message to her to discuss her aunt's overall situation at Dr. Tianna Lozano's request. Dr Lozano did not recommend the consideration of adjuvant or palliative chemotherapy in light of the patient's co-morbidities. I did outline my recommendations in general with the patient including my strong preference for mastectomy for her primary treatment. Thank you for allowing us to participate in her evaluation. Sincerely yours, TYSON HUBER MD DR: JIA/alexia JOB#: [id number] / [id number] Jose Luis Brooks MD, LEE MD MTDD
[2016-08-24 07:20] VITALS: BP 145/67
[2016-08-24] MEDS ORDERED: CONTRAST GIVEN MC PRN (08:45)
[2016-08-24] MEDS ORDERED: IOHEXOL 240 MG/ML 50ML VIAL. PO ONE (08:45)
[2016-08-24] MEDS: buPROPion SR 150 MG TABLET.SA PO SCH ×2 (09:01→21:26)
[2016-08-24] MEDS: CETIRIZINE HCL 10 MG TABLET. PO SCH (09:01)
[2016-08-24] MEDS: CHOLECALCIFEROL (VITAMIN D3) 1,000 UNIT TABLET PO SCH (09:01)
[2016-08-24] MEDS: METOPROLOL TART IMMED RELEASE 25 MG TABLET. PO SCH ×2 (09:02→21:27)
--- NOTE | 2016-08-24 09:11 | PDOC ---
Subjective: Subjective: Onc f/u- breast cancer No complaints. LE swelling unchanged Fatigued Wants surgery Objective: Vital Signs: Vital Signs Date Time Temp Pulse Resp B/P Pulse Ox O2 Delivery O2 Flow Rate FiO2 08/24/16 07:20 98.4 48 18 145/67 98 Room Air 98.4 Physical Exam: Extremities: Other (1+ edema RLE) General: Alert, Oriented X3, No acute distress, Other (fatigued) Lungs: Other (no resp distress) Psych/Mental Status: Mental status NL, Mood NL Labs/Imaging: None new Assessment/Plan A/P: 1. Locally advanced Triple negative breast cancer of left breast, probable T4N2Mx stage III - Agree with mastectomy and SLNB/ ALND - D/w shraddha, agrees that pt unlikely to tolerate RT or chemo well, however limited options otherwise outside of surgery. - Pall care consulted. - CT C/A/P and bone scan ordered for staging. - If she has metastatic disease would favor hospice; if no metastatic disease would favor mastectomy, +/- adjuvant tx depending on further discussions. 2. CKD stage IV 3. Anemia of CKD on aranesp with occasional transfusion needs - Will male tolerating chemo very difficult with no reserve for cytopenias induced by chemo 4. Illiteracy, poor understanding of health. D/w Maureen Story, who is coming to town today as well. LYDIA PATTERSON DO Aug 24, 2016 09:11
--- NOTE | 2016-08-24 09:44 | PDOC ---
Provider Note Provider Note Clinical stIII (T4 N2 M0) triple negative adenocarcinoma of central left breast presenting with breast abscess. Dx made at time of I and D. Doing well post I and D. No complaints. No preop breast imaging available as yet. Agree with staging studies as outlined by Dr Lozano. I recommend mastectomy and ax LN sampling as primary treatment. If at risk for local relapse post op ( and no occult met disease seen on staging evaluation), we will need to at least discuss the potential role for adjuvant chest wall and maria elena radiation vs observation. I discussed my recommendation for mastectomy with patient's niece, Maureen Lozano [phone] TYSON HUBER MD Aug 24, 2016 09:44
--- NOTE | 2016-08-24 10:45 | PDOC ---
SURGICAL PROGRESS NOTE Subjective up to chair drinking oral contrast for her CT chest Vital Signs Vital Signs Date Time Temp Pulse Resp B/P Pulse Ox O2 Delivery O2 Flow Rate FiO2 08/24/16 09:02 48 145/67 08/24/16 08:00 Room Air 08/24/16 07:20 98.4 18 98 98.4 I&O Intake and Output 08/24/16 07:00 Intake Total 600 ml Balance 600 ml Intake Oral 600 ml # Voids 4 PATIENT HAS A CROSS: No General: Alert, No acute distress Skin: Other (dressing intact) Labs Laboratory Tests Test 08/22/16 12:15 08/22/16 13:25 08/22/16 13:34 08/22/16 19:25 White Blood Count 4.5x10^3/uL (4.0-11.0) Red Blood Count 2.59x10^6/uL (3.50-5.40) Hemoglobin 7.0g/dL (12.0-15.5) Hematocrit 22.5% (36.0-47.0) Mean Corpuscular Volume 87fL (79-100) Mean Corpuscular Hemoglobin 27pg (25-35) Mean Corpuscular Hemoglobin Concent 31g/dL (31-37) Red Cell Distribution Width 17.4% (11.5-14.5) Platelet Count 190x10^3/uL (140-400) Neutrophils (%) (Auto) 53% (31-73) Lymphocytes (%) (Auto) 30% (24-48) Monocytes (%) (Auto) 12% (0-9) Eosinophils (%) (Auto) 5% (0-3) Basophils (%) (Auto) 1% (0-3) Neutrophils # (Auto) 2.4x10^3uL (1.8-7.7) Lymphocytes # (Auto) 1.3x10^3/uL (1.0-4.8) Monocytes # (Auto) 0.5x10^3/uL (0.0-1.1) Eosinophils # (Auto) 0.2x10^3/uL (0.0-0.7) Basophils # (Auto) 0.1x10^3/uL (0.0-0.2) Reticulocyte Count (auto) 0.8% (0.5-2.5) Haptoglobin 319mg/dL (34-200) Prothrombin Time 15.1SEC (11.7-14.0) Prothromb Time International Ratio 1.3 (0.8-1.1) Sodium Level 144mmol/L (136-145) Potassium Level 4.8mmol/L (3.5-5.1) Chloride Level 111mmol/L (98-107) Carbon Dioxide Level 24mmol/L (21-32) Anion Gap 9 (6-14) Blood Urea Nitrogen 31mg/dL (7-20) Creatinine 2.5mg/dL (0.6-1.0) Estimated GFR (Cockcroft-Gault) 23.2 Glucose Level 99mg/dL (70-99) Calcium Level 8.6mg/dL (8.5-10.1) Magnesium Level 2.0mg/dL (1.8-2.4) Iron Level 31ug/dL (50-170) Total Iron Binding Capacity 186ug/dL (250-450) Iron Saturation 17% (15-34) Ferritin 211ng/mL (8-252) Total Bilirubin 0.2mg/dL (0.2-1.0) Direct Bilirubin 0.1mg/dL (0.0-0.2) Aspartate Amino Transf (AST/SGOT) 14U/L (15-37) Alanine Aminotransferase (ALT/SGPT) 10U/L (14-59) Alkaline Phosphatase 95U/L (46-116) Lactate Dehydrogenase 205U/L (81-234) Creatine Kinase 54U/L (26-192) Creatine Kinase MB (Mass) < 0.5ng/mL (0.0-3.6) Creatine Kinase MB Relative Index % (0-4) Troponin I Quantitative < 0.017ng/mL (0.000-0.055) < 0.017ng/mL (0.000-0.055) KM-Fud-K-Type Natriuretic Peptide 1196pg/mL (0-124) Total Protein 7.3g/dL (6.4-8.2) Albumin 3.0g/dL (3.4-5.0) Stool Occult Blood Negative (NEG) Urine Collection Type Void Urine Color Yellow Urine Clarity Clear Urine pH 6.5 Urine Specific [place] 1.010 Urine Protein Negativemg/dL (NEG-TRACE) Urine Glucose (UA) Negativemg/dL (NEG) Urine Ketones (Stick) Negativemg/dL (NEG) Urine Blood Negative (NEG) Urine Nitrite Negative (NEG) Urine Bilirubin Negative (NEG) Urine Urobilinogen Dipstick 1.0mg/dL (0.2 mg/dL) Urine Leukocyte Esterase Trace (NEG) Urine RBC 0/HPF (0-2) Urine WBC 1-4/HPF (0-4) Urine Squamous Epithelial Cells Many/LPF Urine Bacteria Few/HPF (0-FEW) Urine Hyaline Casts Few/HPF Urine Mucus Slight/LPF Test 08/22/16 22:45 08/23/16 07:05 08/23/16 13:45 Nasal Screen MRSA (PCR) Negative (Negative) White Blood Count 6.0x10^3/uL (4.0-11.0) Red Blood Count 3.18x10^6/uL (3.50-5.40) Hemoglobin 8.8g/dL (12.0-15.5) Hematocrit 27.5% (36.0-47.0) Mean Corpuscular Volume 87fL (79-100) Mean Corpuscular Hemoglobin 28pg (25-35) Mean Corpuscular Hemoglobin Concent 32g/dL (31-37) Red Cell Distribution Width 16.4% (11.5-14.5) Platelet Count 176x10^3/uL (140-400) Neutrophils (%) (Auto) 65% (31-73) Lymphocytes (%) (Auto) 20% (24-48) Monocytes (%) (Auto) 10% (0-9) Eosinophils (%) (Auto) 3% (0-3) Basophils (%) (Auto) 1% (0-3) Neutrophils # (Auto) 3.9x10^3uL (1.8-7.7) Lymphocytes # (Auto) 1.2x10^3/uL (1.0-4.8) Monocytes # (Auto) 0.6x10^3/uL (0.0-1.1) Eosinophils # (Auto) 0.2x10^3/uL (0.0-0.7) Basophils # (Auto) 0.1x10^3/uL (0.0-0.2) Sodium Level 141mmol/L (136-145) Potassium Level 4.5mmol/L (3.5-5.1) Chloride Level 110mmol/L (98-107) Carbon Dioxide Level 21mmol/L (21-32) Anion Gap 10 (6-14) Blood Urea Nitrogen 29mg/dL (7-20) Creatinine 2.2mg/dL (0.6-1.0) Estimated GFR (Cockcroft-Gault) 26.9 Glucose Level 97mg/dL (70-99) Calcium Level 8.6mg/dL (8.5-10.1) Troponin I Quantitative 0.079ng/mL (0.000-0.055) < 0.017ng/mL (0.000-0.055) Laboratory Tests Test 08/23/16 13:45 Troponin I Quantitative < 0.017ng/mL (0.000-0.055) Problem List Problems Medical Problems: (1) Anemia Status: Acute Assessment/Plan invasive carcinoma, left breast staging w/u in progress due to size and location of process, I feel she would be best served by a mastectomy with axillary sampling, she seems agreeable to that plan await test results I spoke with Ms Cali's niece by phone yesterday Problems: ATIF CHING MD Aug 24, 2016 10:45
--- NOTE | 2016-08-24 11:48 | RAD ---
CT chest abdomen pelvis with IV contrast History: Breast cancer. Comparison: CT chest 01/03/2007. Technique: After administration of oral contrast only, helical CT of the chest, abdomen, and pelvis was performed from the lung apices through the ischial tuberosities. No intravenous contrast was administered secondary to renal function. One or more of the following individualized dose reduction techniques were utilized for the study: Automated exposure control Adjustment of mA and/or kV according to patient's size Use of iterative reconstruction technique. Findings: Evaluation of solid organs and for lymphadenopathy is limited by lack of intravenous contrast. Visualized thyroid is symmetric. Incompletely included on this examination, there is apparent soft tissue mass involving the left axilla which could measure up to about 4 x 2.5 cm in axial dimension, incompletely imaged. No mediastinal lymphadenopathy is seen. Evaluation for hilar lymphadenopathy is limited. Coronary calcification is present. Cardiac chambers appear mildly enlarged. No pericardial thickening is identified. No pulmonary masses or significant pulmonary nodules are identified. Liver, spleen, pancreas, gallbladder, and bilateral adrenal glands are unremarkable. Aortoiliac atherosclerosis is seen. There is moderate atrophy of the right kidney and mild atrophy of left kidney. No bowel obstruction or inflammation is appreciated. Appendix is without evidence of inflammation. Urinary bladder is unremarkable. Uterus and adnexa have unremarkable CT appearance. There may be a trace amount of free fluid in the right aspect of pouch of Pierre, abnormal in a postmenopausal female. No convincing abdominal lymphadenopathy is seen. Borderline bilateral inguinal lymph nodes are seen. Largest left inguinal lymph node measures 1.2 cm in short axis. Largest right inguinal lymph node measures 1.1 cm in short axis. Advanced bilateral hip degeneration, right much worse than left, is seen. Levoconvex degenerative scoliosis of the lumbar spine is present. No suspicious osseous lesions are appreciated. There is a deformity involving the manubrium, suggesting changes of a previous fracture. Impression: 1. Upper outer left breast mass versus axillary lymphadenopathy, incompletely imaged. 2. No evidence of pulmonary metastatic disease. 3. No convincing evidence of metastatic disease in the abdomen or pelvis. 4. Borderline, nonspecific bilateral inguinal lymph nodes. 5. Question trace free fluid in the pelvis, abnormal in a postmenopausal female. Source is not identified.
[2016-08-24] MEDS: ACETAMINOPHEN 500 MG TABLET PO PRN (14:00)
--- NOTE | 2016-08-24 14:10 | RAD ---
Nuclear medicine whole body bone scan History: Breast cancer. Comparison: CT chest abdomen pelvis 08/24/2016. Technique: Examination performed after intravenous administration of 25.0 mCi Technetium 99m MDP. Planar images of the whole body were obtained in the anterior and posterior projections. Findings: Activity is seen involving bilateral hips, right greater than left, compatible with degeneration identified on CT. There is photopenia involving the left knee, compatible with changes of knee arthroplasty. Both shoulders, wrists, ankles, and feet demonstrate degeneration. There is also evidence of activity involving both sternoclavicular joints, favored to be degeneration. Activity at the sternomanubrial junction is favored to be from ossification. Small focus of activity involving the left posterior neck is also thought to be from degeneration. There is no abnormal bone activity to suggest osteoblastic metastases. There is increased soft tissue activity involving the left breast relative to the right breast, which may be related to provided history of breast cancer. Impression: No evidence of osteoblastic metastatic disease.
[2016-08-24 14:36] VITALS: BP 100/64
--- NOTE | 2016-08-24 14:41 | PDOC ---
PROGRESS NOTES Subjective Subjective she will likely agree to surgery ( left mastectomy) but family getting together soon to help decide, she needs help with decisions due to limited mental capacity Objective Objective Vital Signs Date Time Temp Pulse Resp B/P Pulse Ox O2 Delivery O2 Flow Rate FiO2 08/24/16 09:02 48 145/67 08/24/16 08:00 Room Air 08/24/16 07:20 98.4 18 98 98.4 08/22/16 19:45 99.0 Intake and Output 08/24/16 07:00 Intake Total 600 ml Balance 600 ml Intake Oral 600 ml # Voids 4 Physical Exam Abdomen: Normal bowel sounds, Soft Heart: Regular rate Extremities: No clubbing, No cyanosis General: Alert HEENT: Atraumatic Lungs: Clear to auscultation MUSCULOSKELETAL: Other (bilateral hip pain) Neck: Supple Neuro: Normal speech Psych/Mental Status: Mood NL Skin: Other (breast abscess site dressed) Assessment Assessment Problems Medical Problems: breast cancer - likely to agree to mastectomy, lymph node sampling as no firm evidence of metastatic disease based on imaging OA hips - bone scan pending for metastatic work up Anemia - stable after transfusion 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 Labs Laboratory Tests Test 08/22/16 19:25 08/22/16 22:45 08/23/16 07:05 08/23/16 13:45 Troponin I Quantitative < 0.017ng/mL (0.000-0.055) 0.079ng/mL (0.000-0.055) < 0.017ng/mL (0.000-0.055) Nasal Screen MRSA (PCR) Negative (Negative) White Blood Count 6.0x10^3/uL (4.0-11.0) Red Blood Count 3.18x10^6/uL (3.50-5.40) Hemoglobin 8.8g/dL (12.0-15.5) Hematocrit 27.5% (36.0-47.0) Mean Corpuscular Volume 87fL (79-100) Mean Corpuscular Hemoglobin 28pg (25-35) Mean Corpuscular Hemoglobin Concent 32g/dL (31-37) Red Cell Distribution Width 16.4% (11.5-14.5) Platelet Count 176x10^3/uL (140-400) Neutrophils (%) (Auto) 65% (31-73) Lymphocytes (%) (Auto) 20% (24-48) Monocytes (%) (Auto) 10% (0-9) Eosinophils (%) (Auto) 3% (0-3) Basophils (%) (Auto) 1% (0-3) Neutrophils # (Auto) 3.9x10^3uL (1.8-7.7) Lymphocytes # (Auto) 1.2x10^3/uL (1.0-4.8) Monocytes # (Auto) 0.6x10^3/uL (0.0-1.1) Eosinophils # (Auto) 0.2x10^3/uL (0.0-0.7) Basophils # (Auto) 0.1x10^3/uL (0.0-0.2) Sodium Level 141mmol/L (136-145) Potassium Level 4.5mmol/L (3.5-5.1) Chloride Level 110mmol/L (98-107) Carbon Dioxide Level 21mmol/L (21-32) Anion Gap 10 (6-14) Blood Urea Nitrogen 29mg/dL (7-20) Creatinine 2.2mg/dL (0.6-1.0) Estimated GFR (Cockcroft-Gault) 26.9 Glucose Level 97mg/dL (70-99) Calcium Level 8.6mg/dL (8.5-10.1) Medications Current Medications Ondansetron HCl (Zofran) 4 mg PRN Q8HRS PRN IV NAUSEA/VOMITING; Start 08/22/16 at 13:45; Stop 08/23/16 at 13:44; Status DC Atorvastatin Calcium (Lipitor) 40 mg QHS PO Last administered on 08/23/16 22: 02; Start 08/22/16 at 21:00 Bupropion HCl (Wellbutrin Sr) 150 mg BID PO Last administered on 08/24/16 09: 01; Start 08/22/16 at 21:00 Metoprolol Tartrate (Lopressor) 25 mg BID PO Last administered on 08/24/16 09: 02; Start 08/22/16 at 21:00 Vitamin D (Vitamin D3) 2,000 unit DAILY PO Last administered on 08/24/16 09:01 ; Start 08/23/16 at 09:00 Cetirizine HCl (Zyrtec) 10 mg DAILY PO Last administered on 08/24/16 09:01; Start 08/23/16 at 09:00 Acetaminophen (Tylenol) 500 mg 1X ONCE PO Last administered on 08/22/16 17:53 ; Start 08/22/16 at 17:15; Stop 08/22/16 at 17:21; Status DC Acetaminophen (Tylenol) 500 mg PRN Q4HRS PRN PO MILD PAIN / TEMP Last administered on 08/24/16 14:00; Start 08/23/16 at 01:00 Acetaminophen (Tylenol) 1,000 mg PRN Q4HRS PRN PO MILD PAIN; Start 08/23/16 at 01:00 Iohexol (Omnipaque 240 Mg/ml) 30 ml 1X ONCE PO Last administered on 08/24/16 10:47; Start 08/24/16 at 08:45; Stop 08/24/16 at 08:46; Status DC Info (Do NOT chart on this entry -- for MONITORING) 1 each PRN DAILY PRN MC SEE COMMENTS; Start 08/24/16 at 08:45; Stop 08/26/16 at 08:44 Ondansetron HCl (Zofran) 4 mg PRN Q6HRS PRN IV NAUSEA/VOMITING; Start 08/25/16 at 07:00; Stop 08/25/16 at 18:00 Fentanyl Citrate (Fentanyl 2ml Vial) 25 mcg PRN Q5MIN PRN IV MILD PAIN; Start 08/25/16 at 07:00; Stop 08/25/16 at 18:00 Fentanyl Citrate (Fentanyl 2ml Vial) 50 mcg PRN Q5MIN PRN IV MODERATE PAIN; Start 08/25/16 at 07:00; Stop 08/25/16 at 18:00 Morphine Sulfate 1 mg 1 mg PRN Q10MIN PRN IV SEVERE PAIN; Start 08/25/16 at 07: 00; Stop 08/25/16 at 18:00 Lactated Ringer's (Iv Lactated Ringers) 1,000 ml @ 30 mls/hr Q24H IV ; Start at 07:00; Stop 08/25/16 at 18:59 Lidocaine HCl 2 ml PRN 1X PRN ID PRIOR TO IV START; Start 08/25/16 at 07:00; Stop 08/25/16 at 18:00 Hydromorphone HCl (Dilaudid) 0.5 mg PRN Q10MIN PRN IV SEV PAIN, Second choice; Start 08/25/16 at 07:00; Stop 08/25/16 at 18:00 Prochlorperazine Edisylate (Compazine) 5 mg PACU PRN PRN IV NAUSEA, MRX1; Start 08/25/16 at 07:00; Stop 08/25/16 at 18:00 Active Scripts Active Reported Loratadine 10 Mg Tablet 1 Tab PO DAILY Atorvastatin Calcium 40 Mg Tablet 1 Tab PO QHS Metoprolol Tartrate 25 Mg Tablet 1 Tab PO BID Losartan-Hctz 100-25 Mg Tab (Losartan/Hydrochlorothiazide) 1 Each Tablet 1 Tab PO DAILY Furosemide 40 Mg Tablet 1 Tab PO DAILY Aspirin 81 Mg Tab.chew 1 Tab PO DAILY Vitamin D (Cholecalciferol (Vitamin D3)) 2,000 Unit Capsule 1 Cap PO DAILY Wellbutrin Sr (Bupropion Hcl) 150 Mg Tablet.er 1 Tab PO BID Vitals/I & O Vital Sign - Last 24 Hours 08/23/16 08/23/16 08/23/16 08/23/16 15:00 19:00 20:00 22:02 Temp 98.0 98.9 98.0 98.9 Pulse 56 70 70 Resp 18 20 B/P 135/74 128/60 128/60 Pulse Ox 97 100 O2 Delivery Room Air Room Air Room Air 08/23/16 08/24/16 08/24/16 08/24/16 23:07 03:00 07:20 08:00 Temp 98.1 98.1 98.4 98.1 98.1 98.4 Pulse 51 61 48 Resp 18 18 18 B/P 143/57 129/58 145/67 Pulse Ox 96 96 98 O2 Delivery Room Air Room Air Room Air Room Air 08/24/16 09:02 Pulse 48 B/P 145/67 Intake and Output 08/23/16 08/23/16 08/24/16 15:00 23:00 07:00 Intake Total 200 ml 400 ml Balance 200 ml 400 ml MICHI STEVEN MD Aug 24, 2016 14:41
--- NOTE | 2016-08-24 17:03 | PDOC2 ---
PALLIATIVE CARE Palliative Care Note Palliative Care Consult requested by Dr. Lozano to assist with plan of care Diagnosis: Locally advanced Triple negative breast cancer of left breast, probable [id number] stage III; workup for metastatic disease in process; likely mastectomy in near future. CKD stage IV ; anemia, Spoke with patient. Understands she has breast cancer and will need mastectomy. Code Status; Full Code. Will await full workup for metastatic disease. Multiple discussion per physician with shraddha Reddy Bone Scan No evidence of osteoblastic metastatic disease. CT Chest Abdomen Pelvis: Impression: 1. Upper outer left breast mass versus axillary lymphadenopathy, incompletely imaged. 2. No evidence of pulmonary metastatic disease. 3. No convincing evidence of metastatic disease in the abdomen or pelvis. 4. Borderline, nonspecific bilateral inguinal lymph nodes. 5. Question trace free fluid in the pelvis, abnormal in a postmenopausal female. Source is not identified. [id number] Spoke with Maureen llanes. Patient is unable to read or write. Has limited understanding of information. Patient has court appointed guardian Dylan Matias Jr.who is her brother. Consents have been signed by Dylan Reddy for mastectomy tomorrow. OSCAR TOLENTINO Aug 24, 2016 17:03
--- NOTE | 2016-08-24 17:33 | PDOC2 ---
PALLIATIVE CARE Palliative Care Note Palliative Care Spoke with Dylan--court appointed guardian. Requested copy of document. States he recently moved and information may be packed in storage. Spoke with Maureen who will bring information tomorrow if it can be located. OSCAR TOLENTINO Aug 24, 2016 17:33
[2016-08-24 19:00] VITALS: BP 144/67
[2016-08-24] MEDS: ATORVASTATIN CALCIUM 40 MG TABLET. PO SCH (21:26)
[2016-08-24 23:00] VITALS: BP 142/66
[2016-08-25] VITALS (11 sets, daily range): BP systolic 129–160; BP diastolic 52–93
[2016-08-25 06:04] LABS: BASO % 1 % (0-3); EOS % 4 % (0-3); HEMATOCRIT 27.5 % (36.0-47.0); HEMOGLOBIN 9.2 g/dL (12.0-15.5); LYMPH # 1.5 x10^3/uL (1.0-4.8); LYMPH % 25 % (24-48); MEAN CORPUSCULAR HEMOGLOBIN 29 pg (25-35); MEAN CORPUSCULAR HGB CONC 33 g/dL (31-37); MEAN CORPUSCULAR VOLUME 86 fL (79-100); MONO % 12 % (0-9); NEUT % 59 % (31-73); PLATELET COUNT 181 x10^3/uL (140-400); RED BLOOD COUNT 3.22 x10^6/uL (3.50-5.40); RED CELL DISTRIBUTION WIDTH 16.8 % (11.5-14.5); WHITE BLOOD COUNT 5.8 x10^3/uL (4.0-11.0)
[2016-08-25 06:29] LABS: ALBUMIN 2.6 g/dL (3.4-5.0); ALBUMIN/GLOBULIN RATIO 0.6 (1.0-1.7); CALCIUM 8.9 mg/dL (8.5-10.1); CREATININE 2.2 mg/dL (0.6-1.0); GFR 26.9; POTASSIUM 4.4 mmol/L (3.5-5.1); TOTAL BILIRUBIN 0.4 mg/dL (0.2-1.0); TOTAL PROTEIN 7.1 g/dL (6.4-8.2)
[2016-08-25] MEDS ORDERED: IV RINGERS,LACTATED 1000ML 1,000 ML IV SCH (07:00)
[2016-08-25] MEDS ORDERED: LIDOCAINE 1% 1 ML SYRINGE. ID PRN (07:00)
[2016-08-25] MEDS ORDERED: ONDANSETRON PF 4 MG/2 ML VIAL. IV PRN (07:00)
[2016-08-25] MEDS ORDERED: fentaNYL PF VIAL 100 MCG/2 ML VIAL IV PRN ×2 (07:00)
[2016-08-25] MEDS ORDERED: PROCHLORPERAZINE 10 MG/2 ML VIAL. IV PRN (07:00)
[2016-08-25] MEDS ORDERED: MORPHINE SULFATE 2 MG/ML DISP.SYRIN. IV PRN (07:00)
[2016-08-25] MEDS ORDERED: HYDROmorphone 2 MG/ML VIAL IV PRN ×2 (07:00→15:15)
[2016-08-25] MEDS ORDERED: BUPIVAC MPF-EPI 0.5%-1:200000 30 ML VIAL. ONE (07:21)
[2016-08-25] MEDS ORDERED: ISOSULFAN BLUE 50 MG/5 ML VIAL. SQ ONE (07:22)
[2016-08-25] MEDS ORDERED: PROPOFOL 20 ML IV ONE (08:09)
[2016-08-25] MEDS ORDERED: fentaNYL PF VIAL 100 MCG/2 ML VIAL ONE ×2 (08:09→10:50)
[2016-08-25] MEDS ORDERED: LIDOCAINE 2% 100 MG/5 ML SYRINGE. ONE (08:09)
--- NOTE | 2016-08-25 08:40 | PDOC ---
PROGRESS NOTES Subjective Subjective Bed bug found in room last shira, in isolation precautions, going to surgery for mastectomy Objective Objective Vital Signs Date Time Temp Pulse Resp B/P Pulse Ox O2 Delivery O2 Flow Rate FiO2 08/25/16 03:00 98.1 57 18 140/60 97 Room Air 98.1 08/22/16 19:45 99.0 Intake and Output 08/25/16 07:00 Intake Total 920 ml Output Total 1000 ml Balance -80 ml Intake Oral 920 ml Output Urine Total 1000 ml # Voids 6 Physical Exam Heart: Regular rate, No murmurs General: Alert, Cooperative Lungs: Clear to auscultation Psych/Mental Status: Mood NL Skin: No significant lesion Assessment Assessment Problems Medical Problems: breast cancer - left mastectomy, lymph node sampling as no firm evidence of metastatic disease based on imaging OA hips - bone scan negative for mets Anemia - stable after transfusion 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 Labs Laboratory Tests Test 08/23/16 13:45 08/25/16 05:03 Troponin I Quantitative < 0.017ng/mL (0.000-0.055) White Blood Count 5.8x10^3/uL (4.0-11.0) Red Blood Count 3.22x10^6/uL (3.50-5.40) Hemoglobin 9.2g/dL (12.0-15.5) Hematocrit 27.5% (36.0-47.0) Mean Corpuscular Volume 86fL (79-100) Mean Corpuscular Hemoglobin 29pg (25-35) Mean Corpuscular Hemoglobin Concent 33g/dL (31-37) Red Cell Distribution Width 16.8% (11.5-14.5) Platelet Count 181x10^3/uL (140-400) Neutrophils (%) (Auto) 59% (31-73) Lymphocytes (%) (Auto) 25% (24-48) Monocytes (%) (Auto) 12% (0-9) Eosinophils (%) (Auto) 4% (0-3) Basophils (%) (Auto) 1% (0-3) Neutrophils # (Auto) 3.4x10^3uL (1.8-7.7) Lymphocytes # (Auto) 1.5x10^3/uL (1.0-4.8) Monocytes # (Auto) 0.7x10^3/uL (0.0-1.1) Eosinophils # (Auto) 0.2x10^3/uL (0.0-0.7) Basophils # (Auto) 0.0x10^3/uL (0.0-0.2) Sodium Level 140mmol/L (136-145) Potassium Level 4.4mmol/L (3.5-5.1) Chloride Level 110mmol/L (98-107) Carbon Dioxide Level 22mmol/L (21-32) Anion Gap 8 (6-14) Blood Urea Nitrogen 31mg/dL (7-20) Creatinine 2.2mg/dL (0.6-1.0) Estimated GFR (Cockcroft-Gault) 26.9 BUN/Creatinine Ratio 14 (6-20) Glucose Level 93mg/dL (70-99) Calcium Level 8.9mg/dL (8.5-10.1) Total Bilirubin 0.4mg/dL (0.2-1.0) Aspartate Amino Transf (AST/SGOT) 14U/L (15-37) Alanine Aminotransferase (ALT/SGPT) 9U/L (14-59) Alkaline Phosphatase 85U/L (46-116) Total Protein 7.1g/dL (6.4-8.2) Albumin 2.6g/dL (3.4-5.0) Albumin/Globulin Ratio 0.6 (1.0-1.7) Laboratory Tests Test 08/25/16 05:03 White Blood Count 5.8x10^3/uL (4.0-11.0) Red Blood Count 3.22x10^6/uL (3.50-5.40) Hemoglobin 9.2g/dL (12.0-15.5) Hematocrit 27.5% (36.0-47.0) Mean Corpuscular Volume 86fL (79-100) Mean Corpuscular Hemoglobin 29pg (25-35) Mean Corpuscular Hemoglobin Concent 33g/dL (31-37) Red Cell Distribution Width 16.8% (11.5-14.5) Platelet Count 181x10^3/uL (140-400) Neutrophils (%) (Auto) 59% (31-73) Lymphocytes (%) (Auto) 25% (24-48) Monocytes (%) (Auto) 12% (0-9) Eosinophils (%) (Auto) 4% (0-3) Basophils (%) (Auto) 1% (0-3) Neutrophils # (Auto) 3.4x10^3uL (1.8-7.7) Lymphocytes # (Auto) 1.5x10^3/uL (1.0-4.8) Monocytes # (Auto) 0.7x10^3/uL (0.0-1.1) Eosinophils # (Auto) 0.2x10^3/uL (0.0-0.7) Basophils # (Auto) 0.0x10^3/uL (0.0-0.2) Sodium Level 140mmol/L (136-145) Potassium Level 4.4mmol/L (3.5-5.1) Chloride Level 110mmol/L (98-107) Carbon Dioxide Level 22mmol/L (21-32) Anion Gap 8 (6-14) Blood Urea Nitrogen 31mg/dL (7-20) Creatinine 2.2mg/dL (0.6-1.0) Estimated GFR (Cockcroft-Gault) 26.9 BUN/Creatinine Ratio 14 (6-20) Glucose Level 93mg/dL (70-99) Calcium Level 8.9mg/dL (8.5-10.1) Total Bilirubin 0.4mg/dL (0.2-1.0) Aspartate Amino Transf (AST/SGOT) 14U/L (15-37) Alanine Aminotransferase (ALT/SGPT) 9U/L (14-59) Alkaline Phosphatase 85U/L (46-116) Total Protein 7.1g/dL (6.4-8.2) Albumin 2.6g/dL (3.4-5.0) Albumin/Globulin Ratio 0.6 (1.0-1.7) Microbiology 08/22/16 Urine Culture - Final, Complete 08/22/16 Urine Culture Result 1 (PAOLA) - Final, Complete Medications Current Medications Ondansetron HCl (Zofran) 4 mg PRN Q8HRS PRN IV NAUSEA/VOMITING; Start 08/22/16 at 13:45; Stop 08/23/16 at 13:44; Status DC Atorvastatin Calcium (Lipitor) 40 mg QHS PO Last administered on 08/24/16 21: 26; Start 08/22/16 at 21:00 Bupropion HCl (Wellbutrin Sr) 150 mg BID PO Last administered on 08/24/16 21: 26; Start 08/22/16 at 21:00 Metoprolol Tartrate (Lopressor) 25 mg BID PO Last administered on 08/24/16 21: 27; Start 08/22/16 at 21:00 Vitamin D (Vitamin D3) 2,000 unit DAILY PO Last administered on 08/24/16 09:01 ; Start 08/23/16 at 09:00 Cetirizine HCl (Zyrtec) 10 mg DAILY PO Last administered on 08/24/16 09:01; Start 08/23/16 at 09:00 Acetaminophen (Tylenol) 500 mg 1X ONCE PO Last administered on 08/22/16 17:53 ; Start 08/22/16 at 17:15; Stop 08/22/16 at 17:21; Status DC Acetaminophen (Tylenol) 500 mg PRN Q4HRS PRN PO MILD PAIN / TEMP Last administered on 08/24/16 14:00; Start 08/23/16 at 01:00 Acetaminophen (Tylenol) 1,000 mg PRN Q4HRS PRN PO MILD PAIN Last administered on 08/25/16 00:42; Start 08/23/16 at 01:00 Iohexol (Omnipaque 240 Mg/ml) 30 ml 1X ONCE PO Last administered on 08/24/16 10:47; Start 08/24/16 at 08:45; Stop 08/24/16 at 08:46; Status DC Info (Do NOT chart on this entry -- for MONITORING) 1 each PRN DAILY PRN MC SEE COMMENTS; Start 08/24/16 at 08:45; Stop 08/26/16 at 08:44 Ondansetron HCl (Zofran) 4 mg PRN Q6HRS PRN IV NAUSEA/VOMITING; Start 08/25/16 at 07:00; Stop 08/25/16 at 18:00 Fentanyl Citrate (Fentanyl 2ml Vial) 25 mcg PRN Q5MIN PRN IV MILD PAIN; Start 08/25/16 at 07:00; Stop 08/25/16 at 18:00 Fentanyl Citrate (Fentanyl 2ml Vial) 50 mcg PRN Q5MIN PRN IV MODERATE PAIN; Start 08/25/16 at 07:00; Stop 08/25/16 at 18:00 Morphine Sulfate 1 mg 1 mg PRN Q10MIN PRN IV SEVERE PAIN; Start 08/25/16 at 07: 00; Stop 08/25/16 at 18:00 Lactated Ringer's (Iv Lactated Ringers) 1,000 ml @ 30 mls/hr Q24H IV ; Start at 07:00; Stop 08/25/16 at 18:59 Lidocaine HCl 2 ml PRN 1X PRN ID PRIOR TO IV START; Start 08/25/16 at 07:00; Stop 08/25/16 at 18:00 Hydromorphone HCl (Dilaudid) 0.5 mg PRN Q10MIN PRN IV SEV PAIN, Second choice; Start 08/25/16 at 07:00; Stop 08/25/16 at 18:00 Prochlorperazine Edisylate 5 mg 5 mg PACU PRN PRN IV NAUSEA, MRX1; Start at 07:00; Stop 08/25/16 at 18:00 Cefazolin Sodium (Ancef 1gm Ivpb For Omni) 50 ml @ 100 mls/hr 1X PREOP PRN IV prohylaxis; Start 08/25/16 at 06:00; Stop 08/25/16 at 18:00 Bupivacaine HCl/ Epinephrine Bitart (Sensorcain-Mpf Epi 0.5%-1:003774) 30 ml STK -MED ONCE .ROUTE ; Start 08/25/16 at 07:21; Stop 08/25/16 at 07:22; Status DC Isosulfan Blue 50 mg 50 mg STK-MED ONCE SQ ; Start 08/25/16 at 07:22; Stop 08/25 at 07:23; Status DC Propofol (Diprivan) 20 ml @ As Directed STK-MED ONCE IV ; Start 08/25/16 at 08: 09; Stop 08/25/16 at 08:10; Status DC Lidocaine HCl (Lidocaine HCl 2% Abboject) 100 mg STK-MED ONCE .ROUTE ; Start at 08:09; Stop 08/25/16 at 08:10; Status DC Fentanyl Citrate (Fentanyl 2ml Vial) 100 mcg STK-MED ONCE .ROUTE ; Start at 08:09; Stop 08/25/16 at 08:10; Status DC Active Scripts Active Reported Loratadine 10 Mg Tablet 1 Tab PO DAILY Atorvastatin Calcium 40 Mg Tablet 1 Tab PO QHS Metoprolol Tartrate 25 Mg Tablet 1 Tab PO BID Losartan-Hctz 100-25 Mg Tab (Losartan/Hydrochlorothiazide) 1 Each Tablet 1 Tab PO DAILY Furosemide 40 Mg Tablet 1 Tab PO DAILY Aspirin 81 Mg Tab.chew 1 Tab PO DAILY Vitamin D (Cholecalciferol (Vitamin D3)) 2,000 Unit Capsule 1 Cap PO DAILY Wellbutrin Sr (Bupropion Hcl) 150 Mg Tablet.er 1 Tab PO BID Vitals/I & O Vital Sign - Last 24 Hours 08/24/16 08/24/16 08/24/16 08/24/16 09:02 14:36 19:00 20:00 Temp 98.0 98.4 98.0 98.4 Pulse 48 55 57 Resp 18 19 B/P 145/67 100/64 144/67 Pulse Ox 100 98 O2 Delivery Room Air Room Air Room Air 08/24/16 08/24/16 08/25/16 21:27 23:00 03:00 Temp 98.5 98.1 98.5 98.1 Pulse 55 56 57 Resp 18 18 B/P 142/66 142/66 140/60 Pulse Ox 98 97 O2 Delivery Room Air Room Air Intake and Output 08/24/16 08/24/16 08/25/16 15:00 23:00 07:00 Intake Total 220 ml 300 ml 400 ml Output Total 500 ml 500 ml Balance -280 ml 300 ml -100 ml MICHI STEVEN MD Aug 25, 2016 08:40
[2016-08-25] MEDS ORDERED: DEXAMETHASONE SOD PHOS 20 MG/5 ML VIAL. ONE (10:02)
[2016-08-25] MEDS ORDERED: SEVOFLURANE 31 TO 60 MINUTES. IH ONE (10:40)
[2016-08-25] MEDS ORDERED: ONDANSETRON PF 4 MG/2 ML VIAL. ONE (10:40)
--- NOTE | 2016-08-25 11:52 | PDOC ---
BRIEF OPERATIVE NOTE Date: Aug 25, 2016 Pre-Op Diagnosis invasive carcinoma left breast Post-Op Diagnosis same with metastasis to axillary lymph node Procedure Performed left sentinel LN biopsy, modified radical mastectomy Surgeon Jose Luis Anesthesia Type: General Blood Loss 75cc IV Fluid 900cc Specimens Obtained left sentinel LN, left breast and axillary contents Findings positive sentinel node Complications none ATIF CHING MD Aug 25, 2016 11:51
--- NOTE | 2016-08-25 14:41 | PDOC ---
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 Doing well post op. Wait path evaluation. TYSON HUBER MD Aug 25, 2016 14:40
[2016-08-25] MEDS: HYDROcodone/APAP 5/325MG 1 TAB TABLET PO PRN ×2 (16:30→21:32)
[2016-08-25] MEDS: CHOLECALCIFEROL (VITAMIN D3) 1,000 UNIT TABLET PO SCH (16:30)
[2016-08-25] MEDS: buPROPion SR 150 MG TABLET.SA PO SCH ×2 (16:30→21:31)
[2016-08-25] MEDS: METOPROLOL TART IMMED RELEASE 25 MG TABLET. PO SCH ×2 (16:31→21:32)
[2016-08-25] MEDS: ENOXAPARIN 30 MG/0.3 ML SYRINGE. SQ SCH (16:32)
[2016-08-25] MEDS: CETIRIZINE HCL 10 MG TABLET. PO SCH (16:32)
[2016-08-25] MEDS: ATORVASTATIN CALCIUM 40 MG TABLET. PO SCH (21:32)
[2016-08-26 03:03] VITALS: BP 130/61
[2016-08-26 07:00] VITALS: BP 121/59
[2016-08-26] MEDS: ENOXAPARIN 30 MG/0.3 ML SYRINGE. SQ SCH (08:13)
[2016-08-26] MEDS: buPROPion SR 150 MG TABLET.SA PO SCH ×2 (08:14→19:58)
[2016-08-26] MEDS: CETIRIZINE HCL 10 MG TABLET. PO SCH (08:14)
[2016-08-26] MEDS: CHOLECALCIFEROL (VITAMIN D3) 1,000 UNIT TABLET PO SCH (08:14)
[2016-08-26] MEDS: METOPROLOL TART IMMED RELEASE 25 MG TABLET. PO SCH ×3 (08:14→19:58)
[2016-08-26 10:40] VITALS: BP 123/67
--- NOTE | 2016-08-26 10:47 | PDOC ---
SUBJECTIVE ROS CKD IV doing well , no complaitns CVS: no Orthopnea, no CP RESP: no SOB, no ENAMORADO GI: no Nausea, no Vomiting : no Dysuria, no Urgency OBJECTIVE Vital Signs Vital Signs Date Time Temp Pulse Resp B/P Pulse Ox O2 Delivery O2 Flow Rate FiO2 08/26/16 08:15 54 121/59 08/26/16 08:00 Room Air 08/26/16 07:00 98.0 18 94 98.0 08/25/16 17:32 2.0 I & 0 Intake and Output 08/26/16 07:00 Intake Total 1050 ml Output Total 276 ml Balance 774 ml Intake Oral 1050 ml Drainage Total 276 ml PHYSICAL EXAM Physical Exam General Appearance: Awake Alert Oriented x 1-2 In no Distress ; ? underlying dementia Eyes: VIsion Unchanged Conjunctiva Normal EN: No EN Drainage Mucous Memb. moist Neck: no JVD no JVP Supple no Thyromegaly CVS: S1 S2 ? Murmur No Gallop No Rub no Edema Resp: no Rales no Rhonchi no Acc. Muscle use GI: BAS +ve NO Bruit Non Tender Non Distended : no CVA tenderness; no Suprapubic Tenderness Assessment & Plan CKD III/ IV - she appears to be at baseline; Current FLuid and E-lyte status does not necessitate emergent need for Dialysis. Will re-evaluate for Dialysis in am Anemia: suspect due to blood loss from recent surgery and ? Restance to Epogen from ongoing infectin. Transfuse with next HD as needed. ? GI eval Oliguria as recorded - no nicolas - given ^in hgb (despite surgery yest) - she may be intravascularly depeleted - IV NS x 2 L HTN: Current BP meds reviewed. See orders for changes. edema (currently none) - hold home regimen of lasix for now COMMENT/RELEVANT DATA Meds Current Medications Medications (Trade) Dose Ordered Sig/Ezequiel Start Time Stop Time Status Last Admin Dose Admin Acetaminophen (Tylenol) 1,000 mg PRN Q4HRS PRN 08/23/16 01:00 08/25/16 00:42 1,000 MG Acetaminophen/ Hydrocodone Bitart (Lortab 5/325) 1 tab PRN Q4HRS PRN 08/25/16 12:00 08/25/16 21:32 1 TAB Atorvastatin Calcium (Lipitor) 40 mg QHS 4/24/17 21:00 08/25/16 21:32 40 MG Bisacodyl (Dulcolax Supp) 10 mg PRN DAILY PRN 08/26/16 09:30 Bisacodyl (Dulcolax Tab) 5 mg PRN DAILY PRN 08/26/16 09:30 Bupivacaine HCl/ Epinephrine Bitart (Sensorcain-Mpf Epi 0.5%-1:225363) 30 ml STK-MED ONCE 08/25/16 07:21 08/25/16 07:22 DC 08/25/16 10:50 1 ML Bupropion HCl (Wellbutrin Sr) 150 mg BID 08/22/16 21:00 08/26/16 08:14 150 MG Cefazolin Sodium (Ancef 1gm Ivpb For Omni) 50 ml @ 100 mls/hr 1X PREOP PRN 08/25/16 06:00 08/25/16 18:00 DC 08/25/16 10:06 100 MLS/HR Cetirizine HCl (Zyrtec) 10 mg DAILY 08/23/16 09:00 08/26/16 08:14 10 MG Dexamethasone Sodium Phosphate (Decadron) 20 mg STK-MED ONCE 08/25/16 10:02 08/25/16 10:03 DC Enoxaparin Sodium (Lovenox 30mg Syringe) 30 mg Q24H 08/25/16 12:00 08/26/16 08:13 30 MG Ephedrine Sulfate (Akovaz) 50 mg STK-MED ONCE 08/25/16 10:02 08/25/16 10:03 DC Fentanyl Citrate (Fentanyl 2ml Vial) 100 mcg STK-MED ONCE 08/25/16 10:50 08/25/16 10:51 DC Hydromorphone HCl (Dilaudid) 1 mg PRN Q4HRS PRN 08/25/16 15:15 Info (Do NOT chart on this entry -- for MONITORING) 1 each PRN DAILY PRN 08/24/16 08:45 08/26/16 08:44 DC Iohexol (Omnipaque 240 Mg/ml) 30 ml 1X ONCE 08/24/16 08:45 08/24/16 08:46 DC 08/24/16 10:47 30 ML Isosulfan Blue 50 mg 50 mg STK-MED ONCE 08/25/16 07:22 08/25/16 07:23 DC 08/25/16 10:58 50 MG Lactated Ringer's (Iv Lactated Ringers) 1,000 ml @ 30 mls/hr Q24H 08/25/16 07:00 08/25/16 18:59 DC 08/25/16 09:00 30 MLS/HR Lidocaine HCl (Lidocaine HCl 2% Abboject) 100 mg STK-MED ONCE 08/25/16 08:09 08/25/16 08:10 DC Metoprolol Tartrate (Lopressor) 25 mg BID 08/22/16 21:00 08/25/16 21:32 25 MG Morphine Sulfate 1 mg 1 mg PRN Q10MIN PRN 08/25/16 07:00 08/25/16 18:00 DC Ondansetron HCl (Zofran) 4 mg STK-MED ONCE 08/25/16 10:40 08/25/16 10:41 DC Prochlorperazine Edisylate 5 mg 5 mg PACU PRN PRN 08/25/16 07:00 08/25/16 18:00 DC Propofol (Diprivan) 20 ml @ As Directed STK-MED ONCE 08/25/16 08:09 08/25/16 08:10 DC Sevoflurane (Ultane) 30 ml STK-MED ONCE 08/25/16 10:40 08/25/16 10:41 DC Vitamin D (Vitamin D3) 2,000 unit DAILY 08/23/16 09:00 08/26/16 08:14 2,000 UNIT HAYDE RAMSAY MD Aug 26, 2016 10:47
[2016-08-26] MEDS: IV NORMAL SALINE 1000ML BAG 1,000 ML IV SCH ×2 (11:11→19:58)
[2016-08-26] MEDS: BISACODYL 10 MG SUPP.RECT. PR PRN ×2 (11:11→11:53)
[2016-08-26] MEDS: BISACODYL 5 MG TABLET.DR. PO PRN ×2 (11:53→19:58)
[2016-08-26 14:40] VITALS: BP 113/57
[2016-08-26] MEDS: HYDROcodone/APAP 5/325MG 1 TAB TABLET PO PRN ×2 (14:45→19:59)
--- NOTE | 2016-08-26 18:14 | PDOC ---
PROGRESS NOTES Subjective Subjective She is post op left radical mastectomy [address] and fluid in both bulbs, her pain is controlled, she has not had a BM though for several days, she is eating and drinking well now Objective Objective Vital Signs Date Time Temp Pulse Resp B/P Pulse Ox O2 Delivery O2 Flow Rate FiO2 08/26/16 15:38 16 Room Air 08/26/16 14:40 97.7 55 113/57 93 97.7 08/25/16 17:32 2.0 Intake and Output 08/26/16 07:00 Intake Total 1050 ml Output Total 276 ml Balance 774 ml Intake Oral 1050 ml Drainage Total 276 ml Physical Exam Abdomen: Normal bowel sounds, Soft, No tenderness, No masses Heart: Regular rate Extremities: No clubbing, No cyanosis General: Alert, Oriented X3, Cooperative, No acute distress HEENT: Atraumatic Lungs: Clear to auscultation, Other (chest dressing dry) Neck: Supple Neuro: Normal speech Psych/Mental Status: Mood NL Skin: No breakdown Assessment Assessment Problems Medical Problems: breast cancer - s/p radical left mastectomy, lymph node sampling OA hips - bone scan negative for mets Anemia - stable after transfusion - monitoring 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 Labs Laboratory Tests Test 08/25/16 05:03 White Blood Count 5.8x10^3/uL (4.0-11.0) Red Blood Count 3.22x10^6/uL (3.50-5.40) Hemoglobin 9.2g/dL (12.0-15.5) Hematocrit 27.5% (36.0-47.0) Mean Corpuscular Volume 86fL (79-100) Mean Corpuscular Hemoglobin 29pg (25-35) Mean Corpuscular Hemoglobin Concent 33g/dL (31-37) Red Cell Distribution Width 16.8% (11.5-14.5) Platelet Count 181x10^3/uL (140-400) Neutrophils (%) (Auto) 59% (31-73) Lymphocytes (%) (Auto) 25% (24-48) Monocytes (%) (Auto) 12% (0-9) Eosinophils (%) (Auto) 4% (0-3) Basophils (%) (Auto) 1% (0-3) Neutrophils # (Auto) 3.4x10^3uL (1.8-7.7) Lymphocytes # (Auto) 1.5x10^3/uL (1.0-4.8) Monocytes # (Auto) 0.7x10^3/uL (0.0-1.1) Eosinophils # (Auto) 0.2x10^3/uL (0.0-0.7) Basophils # (Auto) 0.0x10^3/uL (0.0-0.2) Sodium Level 140mmol/L (136-145) Potassium Level 4.4mmol/L (3.5-5.1) Chloride Level 110mmol/L (98-107) Carbon Dioxide Level 22mmol/L (21-32) Anion Gap 8 (6-14) Blood Urea Nitrogen 31mg/dL (7-20) Creatinine 2.2mg/dL (0.6-1.0) Estimated GFR (Cockcroft-Gault) 26.9 BUN/Creatinine Ratio 14 (6-20) Glucose Level 93mg/dL (70-99) Calcium Level 8.9mg/dL (8.5-10.1) Total Bilirubin 0.4mg/dL (0.2-1.0) Aspartate Amino Transf (AST/SGOT) 14U/L (15-37) Alanine Aminotransferase (ALT/SGPT) 9U/L (14-59) Alkaline Phosphatase 85U/L (46-116) Total Protein 7.1g/dL (6.4-8.2) Albumin 2.6g/dL (3.4-5.0) Albumin/Globulin Ratio 0.6 (1.0-1.7) Microbiology 08/22/16 Urine Culture - Final, Complete 08/22/16 Urine Culture Result 1 (PAOLA) - Final, Complete Medications Current Medications Ondansetron HCl (Zofran) 4 mg PRN Q8HRS PRN IV NAUSEA/VOMITING; Start 08/22/16 at 13:45; Stop 08/23/16 at 13:44; Status DC Atorvastatin Calcium (Lipitor) 40 mg QHS PO Last administered on 08/25/16t 21: 32; Start 08/22/16 at 21:00 Bupropion HCl (Wellbutrin Sr) 150 mg BID PO Last administered on 08/26/16 08: 14; Start 08/22/16 at 21:00 Metoprolol Tartrate (Lopressor) 25 mg BID PO Last administered on 08/25/16 21: 32; Start 08/22/16 at 21:00 Vitamin D (Vitamin D3) 2,000 unit DAILY PO Last administered on 08/26/16 08:14 ; Start 08/23/16 at 09:00 Cetirizine HCl (Zyrtec) 10 mg DAILY PO Last administered on 08/26/16 08:14; Start 08/23/16 at 09:00 Acetaminophen (Tylenol) 500 mg 1X ONCE PO Last administered on 08/22/16 17:53 ; Start 08/22/16 at 17:15; Stop 08/22/16 at 17:21; Status DC Acetaminophen (Tylenol) 500 mg PRN Q4HRS PRN PO MILD PAIN / TEMP Last administered on 08/24/16 14:00; Start 08/23/16 at 01:00 Acetaminophen (Tylenol) 1,000 mg PRN Q4HRS PRN PO MILD PAIN Last administered on 08/25/16 00:42; Start 08/23/16 at 01:00 Iohexol (Omnipaque 240 Mg/ml) 30 ml 1X ONCE PO Last administered on 08/24/16 10:47; Start 08/24/16 at 08:45; Stop 08/24/16 at 08:46; Status DC Info (Do NOT chart on this entry -- for MONITORING) 1 each PRN DAILY PRN MC SEE COMMENTS; Start 08/24/16 at 08:45; Stop 08/26/16 at 08:44; Status DC Ondansetron HCl (Zofran) 4 mg PRN Q6HRS PRN IV NAUSEA/VOMITING; Start 08/25/16 at 07:00; Stop 08/25/16 at 18:00; Status DC Fentanyl Citrate (Fentanyl 2ml Vial) 25 mcg PRN Q5MIN PRN IV MILD PAIN; Start 08/25/16 at 07:00; Stop 08/25/16 at 18:00; Status DC Fentanyl Citrate (Fentanyl 2ml Vial) 50 mcg PRN Q5MIN PRN IV MODERATE PAIN Last administered on 08/25/16 12:22; Start 08/25/16 at 07:00; Stop 08/25/16 at 18:00; Status DC Morphine Sulfate 1 mg 1 mg PRN Q10MIN PRN IV SEVERE PAIN; Start 08/25/16 at 07: 00; Stop 08/25/16 at 18:00; Status DC Lactated Ringer's (Iv Lactated Ringers) 1,000 ml @ 30 mls/hr Q24H IV Last administered on 08/25/16 09:00; Start 08/25/16 at 07:00; Stop 08/25/16 at 18:59 ; Status DC Lidocaine HCl 2 ml PRN 1X PRN ID PRIOR TO IV START; Start 08/25/16 at 07:00; Stop 08/25/16 at 18:00; Status DC Hydromorphone HCl (Dilaudid) 0.5 mg PRN Q10MIN PRN IV SEV PAIN, Second choice; Start 08/25/16 at 07:00; Stop 08/25/16 at 18:00; Status DC Prochlorperazine Edisylate 5 mg 5 mg PACU PRN PRN IV NAUSEA, MRX1; Start at 07:00; Stop 08/25/16 at 18:00; Status DC Cefazolin Sodium (Ancef 1gm Ivpb For Omni) 50 ml @ 100 mls/hr 1X PREOP PRN IV prohylaxis Last administered on 08/25/16 10:06; Start 08/25/16 at 06:00; Stop 08/25/16 at 18:00; Status DC Bupivacaine HCl/ Epinephrine Bitart (Sensorcain-Mpf Epi 0.5%-1:674740) 30 ml STK -MED ONCE .ROUTE Last administered on 08/25/16 10:50; Start 08/25/16 at 07:21 ; Stop 08/25/16 at 07:22; Status DC Isosulfan Blue 50 mg 50 mg STK-MED ONCE SQ Last administered on 08/25/16 10:58 ; Start 08/25/16 at 07:22; Stop 08/25/16 at 07:23; Status DC Propofol (Diprivan) 20 ml @ As Directed STK-MED ONCE IV ; Start 08/25/16 at 08: 09; Stop 08/25/16 at 08:10; Status DC Lidocaine HCl (Lidocaine HCl 2% Abboject) 100 mg STK-MED ONCE .ROUTE ; Start at 08:09; Stop 08/25/16 at 08:10; Status DC Fentanyl Citrate (Fentanyl 2ml Vial) 100 mcg STK-MED ONCE .ROUTE ; Start at 08:09; Stop 08/25/16 at 08:10; Status DC Dexamethasone Sodium Phosphate (Decadron) 20 mg STK-MED ONCE .ROUTE ; Start at 10:02; Stop 08/25/16 at 10:03; Status DC Ephedrine Sulfate (Akovaz) 50 mg STK-MED ONCE .ROUTE ; Start 08/25/16 at 10:02; Stop 08/25/16 at 10:03; Status DC Ondansetron HCl (Zofran) 4 mg STK-MED ONCE .ROUTE ; Start 08/25/16 at 10:40; Stop 08/25/16 at 10:41; Status DC Sevoflurane (Ultane) 30 ml STK-MED ONCE IH ; Start 08/25/16 at 10:40; Stop 08/25 at 10:41; Status DC Fentanyl Citrate (Fentanyl 2ml Vial) 100 mcg STK-MED ONCE .ROUTE ; Start at 10:50; Stop 08/25/16 at 10:51; Status DC Acetaminophen/ Hydrocodone Bitart (Lortab 5/325) 1 tab PRN Q4HRS PRN PO MODERATE - SEVERE PAIN Last administered on 08/26/16t 14:45; Start 08/25/16 at 12:00 Enoxaparin Sodium (Lovenox 30mg Syringe) 30 mg Q24H SQ Last administered on 08:13; Start 08/25/16 at 12:00 Hydromorphone HCl (Dilaudid) 1 mg PRN Q4HRS PRN IV PAIN; Start 08/25/16 at 15: 15 Bisacodyl (Dulcolax Supp) 10 mg PRN DAILY PRN OK CONSTIPATION; Start 08/26/16 at 09:30 Bisacodyl 5 mg 5 mg PRN DAILY PRN PO CONSTIPATION; Start 4/28/17 at 09:30 Sodium Chloride (Iv Sodium Chloride 0.9% 1000ml Bag) 1,000 ml @ 75 mls/hr [id number] IV Last administered on 08/26/16t 11:11; Start 08/26/16 at 11:00; Stop 08/27/16 at 13:39 Active Scripts Active Reported Loratadine 10 Mg Tablet 1 Tab PO DAILY Atorvastatin Calcium 40 Mg Tablet 1 Tab PO QHS Metoprolol Tartrate 25 Mg Tablet 1 Tab PO BID Losartan-Hctz 100-25 Mg Tab (Losartan/Hydrochlorothiazide) 1 Each Tablet 1 Tab PO DAILY Furosemide 40 Mg Tablet 1 Tab PO DAILY Aspirin 81 Mg Tab.chew 1 Tab PO DAILY Vitamin D (Cholecalciferol (Vitamin D3)) 2,000 Unit Capsule 1 Cap PO DAILY Wellbutrin Sr (Bupropion Hcl) 150 Mg Tablet.er 1 Tab PO BID Vitals/I & O Vital Sign - Last 24 Hours 08/25/16 08/25/16 08/25/16 08/25/16 19:00 20:00 21:32 21:32 Temp 97.8 97.8 Pulse 73 73 Resp 20 18 B/P 150/83 150/83 Pulse Ox 97 O2 Delivery Room Air Room Air Room Air 08/25/16 08/26/16 08/26/16 08/26/16 22:53 03:03 07:00 08:00 Temp 98.6 98.0 98.0 98.6 98.0 98.0 Pulse 52 51 54 Resp 19 19 18 B/P 136/65 130/61 121/59 Pulse Ox 97 94 94 O2 Delivery Room Air Room Air Room Air Room Air 08/26/16 08/26/16 08/26/16 08/26/16 08:15 10:40 14:40 14:45 Temp 97.7 97.7 Pulse 54 52 55 Resp 16 16 14 B/P 121/59 123/67 113/57 Pulse Ox 97 93 O2 Delivery Room Air Room Air Room Air 08/26/16 15:38 Resp 16 O2 Delivery Room Air Intake and Output 08/25/16 08/25/16 08/26/16 15:00 23:00 07:00 Intake Total 10 ml 500 ml 540 ml Output Total 30 ml 101 ml 145 ml Balance -20 ml 399 ml 395 ml MICHI STEVEN MD Aug 26, 2016 18:14
[2016-08-26 18:57] LABS: BASO % 1 % (0-3); EOS % 2 % (0-3); HEMATOCRIT 26.1 % (36.0-47.0); HEMOGLOBIN 8.3 g/dL (12.0-15.5); LYMPH # 1.6 x10^3/uL (1.0-4.8); LYMPH % 24 % (24-48); MEAN CORPUSCULAR HEMOGLOBIN 28 pg (25-35); MEAN CORPUSCULAR HGB CONC 32 g/dL (31-37); MEAN CORPUSCULAR VOLUME 88 fL (79-100); MONO % 10 % (0-9); NEUT % 63 % (31-73); PLATELET COUNT 165 x10^3/uL (140-400); RED BLOOD COUNT 2.97 x10^6/uL (3.50-5.40); RED CELL DISTRIBUTION WIDTH 17.1 % (11.5-14.5); WHITE BLOOD COUNT 6.7 x10^3/uL (4.0-11.0)
[2016-08-26 19:08] LABS: CALCIUM 8.2 mg/dL (8.5-10.1); CREATININE 2.2 mg/dL (0.6-1.0); GFR 26.9; POTASSIUM 4.5 mmol/L (3.5-5.1)
[2016-08-26 19:36] VITALS: BP 111/67
[2016-08-26] MEDS: ATORVASTATIN CALCIUM 40 MG TABLET. PO SCH (19:58)
[2016-08-26 23:00] VITALS: BP 131/68
[2016-08-27] MEDS: HYDROcodone/APAP 5/325MG 1 TAB TABLET PO PRN ×3 (00:25→21:43)
[2016-08-27 03:48] VITALS: BP 135/76
[2016-08-27 05:31] LABS: WHITE BLOOD COUNT 6.4 x10^3/uL (4.0-11.0)
[2016-08-27 05:32] LABS: BASO % 1 % (0-3); EOS % 4 % (0-3); HEMATOCRIT 25.7 % (36.0-47.0); HEMOGLOBIN 8.5 g/dL (12.0-15.5); LYMPH % 32 % (24-48); MEAN CORPUSCULAR HEMOGLOBIN 29 pg (25-35); MEAN CORPUSCULAR HGB CONC 33 g/dL (31-37); MEAN CORPUSCULAR VOLUME 86 fL (79-100); MONO % 9 % (0-9); NEUT % 55 % (31-73); PLATELET COUNT 180 x10^3/uL (140-400); RED BLOOD COUNT 2.98 x10^6/uL (3.50-5.40)
[2016-08-27 07:54] VITALS: BP 106/51
[2016-08-27] MEDS: buPROPion SR 150 MG TABLET.SA PO SCH ×2 (09:25→21:40)
[2016-08-27] MEDS: LOSARTAN POTASSIUM 50 MG TABLET. PO SCH (09:26)
[2016-08-27] MEDS: CETIRIZINE HCL 10 MG TABLET. PO SCH (09:27)
[2016-08-27] MEDS: CHOLECALCIFEROL (VITAMIN D3) 1,000 UNIT TABLET PO SCH (09:27)
[2016-08-27] MEDS: hydroCHLOROthiazide 25 MG TABLET PO SCH (09:27)
[2016-08-27 10:45] VITALS: BP 117/53
--- NOTE | 2016-08-27 10:54 | PDOC ---
Provider Note Provider Note LATE ENTRY 08/26/16 POD 2 pt seen and examined no new c/o adequate pain control JPs with serosanguineous output continue PO care ATIF CHING MD Aug 27, 2016 10:54
--- NOTE | 2016-08-27 11:29 | PDOC ---
PROGRESS NOTES Subjective Subjective POD #2, no medical issues except for no bowel movement and persistent complaint of right hip pain with known degenerative hip disease, less drainage from drains , pain controlled, dressing loose, but dry Objective Objective Vital Signs Date Time Temp Pulse Resp B/P Pulse Ox O2 Delivery O2 Flow Rate FiO2 08/27/16 10:45 98.4 12 18 117/53 96 Room Air 98.4 08/27/16 09:27 2.0 Intake and Output 08/27/16 07:00 Intake Total 386 ml Output Total 110 ml Balance 276 ml Intake Oral 0 ml IV Total 386 ml Drainage Total 110 ml Physical Exam Abdomen: Normal bowel sounds, Soft Heart: Regular rate Extremities: No clubbing, No cyanosis, No edema General: Alert, Oriented X3, Cooperative, No acute distress HEENT: Atraumatic Lungs: Clear to auscultation Neck: Supple, No JVD Neuro: Normal speech Psych/Mental Status: Mental status NL Skin: Other (dressing dry left chest wall) Assessment Assessment Problems Medical Problems: breast cancer - s/p radical left mastectomy, lymph node sampling, path pending OA hips - bone scan negative for mets Anemia - stable after transfusion - monitoring 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 Labs Laboratory Tests Test 08/26/16 17:30 08/27/16 05:05 White Blood Count 6.7x10^3/uL (4.0-11.0) 6.4x10^3/uL (4.0-11.0) Red Blood Count 2.97x10^6/uL (3.50-5.40) 2.98x10^6/uL (3.50-5.40) Hemoglobin 8.3g/dL (12.0-15.5) 8.5g/dL (12.0-15.5) Hematocrit 26.1% (36.0-47.0) 25.7% (36.0-47.0) Mean Corpuscular Volume 88fL (79-100) 86fL (79-100) Mean Corpuscular Hemoglobin 28pg (25-35) 29pg (25-35) Mean Corpuscular Hemoglobin Concent 32g/dL (31-37) 33g/dL (31-37) Red Cell Distribution Width 17.1% (11.5-14.5) 17.0% (11.5-14.5) Platelet Count 165x10^3/uL (140-400) 180x10^3/uL (140-400) Neutrophils (%) (Auto) 63% (31-73) 55% (31-73) Lymphocytes (%) (Auto) 24% (24-48) 32% (24-48) Monocytes (%) (Auto) 10% (0-9) 9% (0-9) Eosinophils (%) (Auto) 2% (0-3) 4% (0-3) Basophils (%) (Auto) 1% (0-3) 1% (0-3) Neutrophils # (Auto) 4.3x10^3uL (1.8-7.7) 3.6x10^3uL (1.8-7.7) Lymphocytes # (Auto) 1.6x10^3/uL (1.0-4.8) 2.0x10^3/uL (1.0-4.8) Monocytes # (Auto) 0.7x10^3/uL (0.0-1.1) 0.6x10^3/uL (0.0-1.1) Eosinophils # (Auto) 0.1x10^3/uL (0.0-0.7) 0.2x10^3/uL (0.0-0.7) Basophils # (Auto) 0.0x10^3/uL (0.0-0.2) 0.0x10^3/uL (0.0-0.2) Sodium Level 139mmol/L (136-145) Potassium Level 4.5mmol/L (3.5-5.1) Chloride Level 107mmol/L (98-107) Carbon Dioxide Level 24mmol/L (21-32) Anion Gap 8 (6-14) Blood Urea Nitrogen 30mg/dL (7-20) Creatinine 2.2mg/dL (0.6-1.0) Estimated GFR (Cockcroft-Gault) 26.9 Glucose Level 96mg/dL (70-99) Calcium Level 8.2mg/dL (8.5-10.1) Laboratory Tests Test 08/26/16 17:30 4/29/17 05:05 White Blood Count 6.7x10^3/uL (4.0-11.0) 6.4x10^3/uL (4.0-11.0) Red Blood Count 2.97x10^6/uL (3.50-5.40) 2.98x10^6/uL (3.50-5.40) Hemoglobin 8.3g/dL (12.0-15.5) 8.5g/dL (12.0-15.5) Hematocrit 26.1% (36.0-47.0) 25.7% (36.0-47.0) Mean Corpuscular Volume 88fL (79-100) 86fL (79-100) Mean Corpuscular Hemoglobin 28pg (25-35) 29pg (25-35) Mean Corpuscular Hemoglobin Concent 32g/dL (31-37) 33g/dL (31-37) Red Cell Distribution Width 17.1% (11.5-14.5) 17.0% (11.5-14.5) Platelet Count 165x10^3/uL (140-400) 180x10^3/uL (140-400) Neutrophils (%) (Auto) 63% (31-73) 55% (31-73) Lymphocytes (%) (Auto) 24% (24-48) 32% (24-48) Monocytes (%) (Auto) 10% (0-9) 9% (0-9) Eosinophils (%) (Auto) 2% (0-3) 4% (0-3) Basophils (%) (Auto) 1% (0-3) 1% (0-3) Neutrophils # (Auto) 4.3x10^3uL (1.8-7.7) 3.6x10^3uL (1.8-7.7) Lymphocytes # (Auto) 1.6x10^3/uL (1.0-4.8) 2.0x10^3/uL (1.0-4.8) Monocytes # (Auto) 0.7x10^3/uL (0.0-1.1) 0.6x10^3/uL (0.0-1.1) Eosinophils # (Auto) 0.1x10^3/uL (0.0-0.7) 0.2x10^3/uL (0.0-0.7) Basophils # (Auto) 0.0x10^3/uL (0.0-0.2) 0.0x10^3/uL (0.0-0.2) Sodium Level 139mmol/L (136-145) Potassium Level 4.5mmol/L (3.5-5.1) Chloride Level 107mmol/L (98-107) Carbon Dioxide Level 24mmol/L (21-32) Anion Gap 8 (6-14) Blood Urea Nitrogen 30mg/dL (7-20) Creatinine 2.2mg/dL (0.6-1.0) Estimated GFR (Cockcroft-Gault) 26.9 Glucose Level 96mg/dL (70-99) Calcium Level 8.2mg/dL (8.5-10.1) Microbiology 08/22/16 Urine Culture - Final, Complete 08/22/16 Urine Culture Result 1 ([facility]) - Final, Complete Medications Current Medications Ondansetron HCl (Zofran) 4 mg PRN Q8HRS PRN IV NAUSEA/VOMITING; Start 08/22/16 at 13:45; Stop 08/23/16 at 13:44; Status DC Atorvastatin Calcium (Lipitor) 40 mg QHS PO Last administered on 08/26/16 19: 58; Start 08/22/16 at 21:00 Bupropion HCl (Wellbutrin Sr) 150 mg BID PO Last administered on 08/27/16 09: 25; Start 08/22/16 at 21:00 Metoprolol Tartrate (Lopressor) 25 mg BID PO Last administered on 08/26/16 19: 58; Start 08/22/16 at 21:00; Stop 08/27/16 at 07:11; Status DC Vitamin D (Vitamin D3) 2,000 unit DAILY PO Last administered on 08/27/16 09:27 ; Start 08/23/16 at 09:00 Cetirizine HCl (Zyrtec) 10 mg DAILY PO Last administered on 08/27/16 09:27; Start 08/23/16 at 09:00 Acetaminophen (Tylenol) 500 mg 1X ONCE PO Last administered on 08/22/16 17:53 ; Start 08/22/16 at 17:15; Stop 08/22/16 at 17:21; Status DC Acetaminophen (Tylenol) 500 mg PRN Q4HRS PRN PO MILD PAIN / TEMP Last administered on 08/24/16 14:00; Start 08/23/16 at 01:00 Acetaminophen (Tylenol) 1,000 mg PRN Q4HRS PRN PO MILD PAIN Last administered on 08/25/16 00:42; Start 08/23/16 at 01:00 Iohexol (Omnipaque 240 Mg/ml) 30 ml 1X ONCE PO Last administered on 08/24/16 10:47; Start 08/24/16 at 08:45; Stop 08/24/16 at 08:46; Status DC Info (Do NOT chart on this entry -- for MONITORING) 1 each PRN DAILY PRN MC SEE COMMENTS; Start 08/24/16 at 08:45; Stop 08/26/16 at 08:44; Status DC Ondansetron HCl (Zofran) 4 mg PRN Q6HRS PRN IV NAUSEA/VOMITING; Start 08/25/16 at 07:00; Stop 08/25/16 at 18:00; Status DC Fentanyl Citrate (Fentanyl 2ml Vial) 25 mcg PRN Q5MIN PRN IV MILD PAIN; Start 08/25/16 at 07:00; Stop 08/25/16 at 18:00; Status DC Fentanyl Citrate (Fentanyl 2ml Vial) 50 mcg PRN Q5MIN PRN IV MODERATE PAIN Last administered on 08/25/16 12:22; Start 08/25/16 at 07:00; Stop 08/25/16 at 18:00; Status DC Morphine Sulfate 1 mg 1 mg PRN Q10MIN PRN IV SEVERE PAIN; Start 08/25/16 at 07: 00; Stop 08/25/16 at 18:00; Status DC Lactated Ringer's (Iv Lactated Ringers) 1,000 ml @ 30 mls/hr Q24H IV Last administered on 08/25/16 09:00; Start 08/25/16 at 07:00; Stop 08/25/16 at 18:59 ; Status DC Lidocaine HCl 2 ml PRN 1X PRN ID PRIOR TO IV START; Start 08/25/16 at 07:00; Stop 08/25/16 at 18:00; Status DC Hydromorphone HCl (Dilaudid) 0.5 mg PRN Q10MIN PRN IV SEV PAIN, Second choice; Start 08/25/16 at 07:00; Stop 08/25/16 at 18:00; Status DC Prochlorperazine Edisylate 5 mg 5 mg PACU PRN PRN IV NAUSEA, MRX1; Start at 07:00; Stop 08/25/16 at 18:00; Status DC Cefazolin Sodium (Ancef 1gm Ivpb For Omni) 50 ml @ 100 mls/hr 1X PREOP PRN IV prohylaxis Last administered on 08/25/16 10:06; Start 08/25/16 at 06:00; Stop 08/25/16 at 18:00; Status DC Bupivacaine HCl/ Epinephrine Bitart (Sensorcain-Mpf Epi 0.5%-[id number]) 30 ml STK -MED ONCE .ROUTE Last administered on 08/25/16 10:50; Start 08/25/16 at 07:21 ; Stop 08/25/16 at 07:22; Status DC Isosulfan Blue 50 mg 50 mg STK-MED ONCE SQ Last administered on 08/25/16 10:58 ; Start 08/25/16 at 07:22; Stop 08/25/16 at 07:23; Status DC Propofol (Diprivan) 20 ml @ As Directed STK-MED ONCE IV ; Start 08/25/16 at 08: 09; Stop 08/25/16 at 08:10; Status DC Lidocaine HCl (Lidocaine HCl 2% Abboject) 100 mg STK-MED ONCE .ROUTE ; Start at 08:09; Stop 08/25/16 at 08:10; Status DC Fentanyl Citrate (Fentanyl 2ml Vial) 100 mcg STK-MED ONCE .ROUTE ; Start at 08:09; Stop 08/25/16 at 08:10; Status DC Dexamethasone Sodium Phosphate (Decadron) 20 mg STK-MED ONCE .ROUTE ; Start at 10:02; Stop 08/25/16 at 10:03; Status DC Ephedrine Sulfate (Akovaz) 50 mg STK-MED ONCE .ROUTE ; Start 08/25/16 at 10:02; Stop 08/25/16 at 10:03; Status DC Ondansetron HCl (Zofran) 4 mg STK-MED ONCE .ROUTE ; Start 08/25/16 at 10:40; Stop 08/25/16 at 10:41; Status DC Sevoflurane (Ultane) 30 ml STK-MED ONCE IH ; Start 08/25/16 at 10:40; Stop 08/25 at 10:41; Status DC Fentanyl Citrate (Fentanyl 2ml Vial) 100 mcg STK-MED ONCE .ROUTE ; Start at 10:50; Stop 08/25/16 at 10:51; Status DC Acetaminophen/ Hydrocodone Bitart (Lortab 5/325) 1 tab PRN Q4HRS PRN PO MODERATE - SEVERE PAIN Last administered on 08/27/16 09:27; Start 08/25/16 at 12:00 Enoxaparin Sodium (Lovenox 30mg Syringe) 30 mg Q24H SQ Last administered on 08:13; Start 08/25/16 at 12:00 Hydromorphone HCl (Dilaudid) 1 mg PRN Q4HRS PRN IV PAIN; Start 08/25/16 at 15: 15 Bisacodyl (Dulcolax Supp) 10 mg PRN DAILY PRN LA CONSTIPATION; Start 08/26/16 at 09:30 Bisacodyl 5 mg 5 mg PRN DAILY PRN PO CONSTIPATION Last administered on 19:58; Start 08/26/16 at 09:30 Sodium Chloride (Iv Sodium Chloride 0.9% 1000ml Bag) 1,000 ml @ 75 mls/hr [id number] IV Last administered on 08/26/16 19:58; Start 08/26/16 at 11:00; Stop 08/27/16 at 13:39 Losartan Potassium (Cozaar) 100 mg DAILY PO Last administered on 08/27/16 09: 26; Start 08/27/16 at 09:00 Hydrochlorothiazide (Hydrodiuril) 25 mg DAILY PO Last administered on 09:27; Start 08/27/16 at 09:00 Active Scripts Active Reported Loratadine 10 Mg Tablet 1 Tab PO DAILY Atorvastatin Calcium 40 Mg Tablet 1 Tab PO QHS Metoprolol Tartrate 25 Mg Tablet 1 Tab PO BID Losartan-Hctz 100-25 Mg Tab (Losartan/Hydrochlorothiazide) 1 Each Tablet 1 Tab PO DAILY Furosemide 40 Mg Tablet 1 Tab PO DAILY Aspirin 81 Mg Tab.chew 1 Tab PO DAILY Vitamin D (Cholecalciferol (Vitamin D3)) 2,000 Unit Capsule 1 Cap PO DAILY Wellbutrin Sr (Bupropion Hcl) 150 Mg Tablet.er 1 Tab PO BID Vitals/I & O Vital Sign - Last 24 Hours 08/26/16 08/26/16 08/26/16 08/26/16 14:40 14:45 15:38 19:36 Temp 97.7 98.3 97.7 98.3 Pulse 55 60 Resp 16 14 16 18 B/P 113/57 111/67 Pulse Ox 93 97 O2 Delivery Room Air Room Air Room Air 08/26/16 08/26/16 08/26/16 08/26/16 19:58 19:59 20:00 23:00 Temp 98.4 98.4 Pulse 60 50 Resp 18 B/P 111/67 131/68 Pulse Ox 97 O2 Delivery Room Air Room Air Room Air 08/27/16 08/27/16 08/27/16 08/27/16 00:24 00:25 01:48 03:48 Temp 97.8 97.8 Pulse 48 Resp 18 B/P 135/76 Pulse Ox 97 97 O2 Delivery Room Air Room Air Room Air O2 Flow Rate 2.0 08/27/16 08/27/16 08/27/16 08/27/16 07:54 08:00 09:26 09:27 Temp 98.1 98.1 Pulse 13 56 Resp 17 18 B/P 106/51 110/51 Pulse Ox 99 99 O2 Delivery Room Air Room Air Room Air O2 Flow Rate 2.0 2.0 08/27/16 10:45 Temp 98.4 98.4 Pulse 12 Resp 18 B/P 117/53 Pulse Ox 96 O2 Delivery Room Air Intake and Output 08/26/16 08/26/16 08/27/16 15:00 23:00 07:00 Intake Total 386 ml 0 ml Output Total 110 ml Balance 276 ml 0 ml MICHI STEVEN MD Aug 27, 2016 11:29
--- NOTE | 2016-08-27 11:34 | PDOC ---
SHELLIE MATA MILITARY EQUIPMENT SPECIALIST 08/27/16 1134: SURGICAL PROGRESS NOTE Subjective tolerating diet pain managed constipated Vital Signs Vital Signs Date Time Temp Pulse Resp B/P Pulse Ox O2 Delivery O2 Flow Rate FiO2 08/27/16 10:45 98.4 12 18 117/53 96 Room Air 98.4 08/27/16 09:27 2.0 I&O Intake and Output 08/27/16 07:00 Intake Total 386 ml Output Total 110 ml Balance 276 ml Intake Oral 0 ml IV Total 386 ml Drainage Total 110 ml General: Alert, Oriented X3, Cooperative, No acute distress Skin: Other (left mastectomy dressing dry, no ecchymosis, swelling drains serosang ) Labs Laboratory Tests Test 08/26/16 17:30 08/27/16 05:05 White Blood Count 6.7x10^3/uL (4.0-11.0) 6.4x10^3/uL (4.0-11.0) Red Blood Count 2.97x10^6/uL (3.50-5.40) 2.98x10^6/uL (3.50-5.40) Hemoglobin 8.3g/dL (12.0-15.5) 8.5g/dL (12.0-15.5) Hematocrit 26.1% (36.0-47.0) 25.7% (36.0-47.0) Mean Corpuscular Volume 88fL (79-100) 86fL (79-100) Mean Corpuscular Hemoglobin 28pg (25-35) 29pg (25-35) Mean Corpuscular Hemoglobin Concent 32g/dL (31-37) 33g/dL (31-37) Red Cell Distribution Width 17.1% (11.5-14.5) 17.0% (11.5-14.5) Platelet Count 165x10^3/uL (140-400) 180x10^3/uL (140-400) Neutrophils (%) (Auto) 63% (31-73) 55% (31-73) Lymphocytes (%) (Auto) 24% (24-48) 32% (24-48) Monocytes (%) (Auto) 10% (0-9) 9% (0-9) Eosinophils (%) (Auto) 2% (0-3) 4% (0-3) Basophils (%) (Auto) 1% (0-3) 1% (0-3) Neutrophils # (Auto) 4.3x10^3uL (1.8-7.7) 3.6x10^3uL (1.8-7.7) Lymphocytes # (Auto) 1.6x10^3/uL (1.0-4.8) 2.0x10^3/uL (1.0-4.8) Monocytes # (Auto) 0.7x10^3/uL (0.0-1.1) 0.6x10^3/uL (0.0-1.1) Eosinophils # (Auto) 0.1x10^3/uL (0.0-0.7) 0.2x10^3/uL (0.0-0.7) Basophils # (Auto) 0.0x10^3/uL (0.0-0.2) 0.0x10^3/uL (0.0-0.2) Sodium Level 139mmol/L (136-145) Potassium Level 4.5mmol/L (3.5-5.1) Chloride Level 107mmol/L (98-107) Carbon Dioxide Level 24mmol/L (21-32) Anion Gap 8 (6-14) Blood Urea Nitrogen 30mg/dL (7-20) Creatinine 2.2mg/dL (0.6-1.0) Estimated GFR (Cockcroft-Gault) 26.9 Glucose Level 96mg/dL (70-99) Calcium Level 8.2mg/dL (8.5-10.1) Laboratory Tests Test 08/26/16 17:30 08/27/16 05:05 White Blood Count 6.7x10^3/uL (4.0-11.0) 6.4x10^3/uL (4.0-11.0) Red Blood Count 2.97x10^6/uL (3.50-5.40) 2.98x10^6/uL (3.50-5.40) Hemoglobin 8.3g/dL (12.0-15.5) 8.5g/dL (12.0-15.5) Hematocrit 26.1% (36.0-47.0) 25.7% (36.0-47.0) Mean Corpuscular Volume 88fL (79-100) 86fL (79-100) Mean Corpuscular Hemoglobin 28pg (25-35) 29pg (25-35) Mean Corpuscular Hemoglobin Concent 32g/dL (31-37) 33g/dL (31-37) Red Cell Distribution Width 17.1% (11.5-14.5) 17.0% (11.5-14.5) Platelet Count 165x10^3/uL (140-400) 180x10^3/uL (140-400) Neutrophils (%) (Auto) 63% (31-73) 55% (31-73) Lymphocytes (%) (Auto) 24% (24-48) 32% (24-48) Monocytes (%) (Auto) 10% (0-9) 9% (0-9) Eosinophils (%) (Auto) 2% (0-3) 4% (0-3) Basophils (%) (Auto) 1% (0-3) 1% (0-3) Neutrophils # (Auto) 4.3x10^3uL (1.8-7.7) 3.6x10^3uL (1.8-7.7) Lymphocytes # (Auto) 1.6x10^3/uL (1.0-4.8) 2.0x10^3/uL (1.0-4.8) Monocytes # (Auto) 0.7x10^3/uL (0.0-1.1) 0.6x10^3/uL (0.0-1.1) Eosinophils # (Auto) 0.1x10^3/uL (0.0-0.7) 0.2x10^3/uL (0.0-0.7) Basophils # (Auto) 0.0x10^3/uL (0.0-0.2) 0.0x10^3/uL (0.0-0.2) Sodium Level 139mmol/L (136-145) Potassium Level 4.5mmol/L (3.5-5.1) Chloride Level 107mmol/L (98-107) Carbon Dioxide Level 24mmol/L (21-32) Anion Gap 8 (6-14) Blood Urea Nitrogen 30mg/dL (7-20) Creatinine 2.2mg/dL (0.6-1.0) Estimated GFR (Cockcroft-Gault) 26.9 Glucose Level 96mg/dL (70-99) Calcium Level 8.2mg/dL (8.5-10.1) Problem List Problems Medical Problems: (1) Anemia Status: Acute Assessment/Plan s/p left radial mastectomy, continue drains laxatives increase activity Problems: FATOUMATA OLVERA MD 08/27/16 1235: SURGICAL PROGRESS NOTE Assessment/Plan Agree with above Problems: SHELLIE MATA [employer] EQUIPMENT SPECIALIST Aug 27, 2016 11:34 FATOUMATA OLVERA MD Aug 27, 2016 12:35
--- NOTE | 2016-08-27 11:38 | OP ---
DATE OF SURGERY: 08/26/2016 PREOPERATIVE DIAGNOSIS: Invasive carcinoma, left breast. POSTOPERATIVE DIAGNOSIS: Invasive carcinoma, left breast with metastasis to the sentinel lymph node. PROCEDURE: Left sentinel node biopsy, modified radical mastectomy. SURGEON: Atif Ching MD. ANESTHESIA: General. ESTIMATED BLOOD LOSS: 75 mL. IV FLUID: 900. INDICATIONS: The patient is a 70-year-old female who presented with a left breast abscess which on drainage and biopsy revealed an invasive carcinoma. She is brought for definitive therapy. OPERATIVE REPORT: The patient brought to the Operating Suite, given general anesthetic, and the left breast, chest and arm were prepped and draped in usual sterile fashion. An elliptical skin incision to include the previous area of debridement and the nipple areolar complex was outlined with a marking pen. Superior skin flap was incised and developed with cautery dissection. Prior to the incision, 5 mL of Lymphazurin was injected intradermally in the quadrant corresponding to the area of palpable change. Dissection was carried up into the axilla. However, no definitive stain tissue was identified. A node ____ axilla was harvested and sent for frozen section. While awaiting that report, the inferior skin flap was incised and developed and the breast was swept off the chest wall from medial to lateral to the lateral margin of the pectoralis muscle. Intraoperative report of a positive lymph node was given and as such an axillary dissection was carried out. The axillary vein was identified and the contents inferior to the vein were swept out of the axilla en bloc with the breast and the specimen passed off. Care was taken to avoid the thoracodorsal neurovascular bundle as well as a long thoracic nerve. When hemostasis was obtained and a correct sponge count was present, the drains were placed. Lateral drain in the axilla, medial drain under the superior skin flap, secured to the skin with silk sutures. Again, we checked for hemostasis and when present and a second sponge count was correct, the incision was closed with interrupted inverted 3-0 Vicryl in subcutaneous tissue, a subcuticular 4-0 Monocryl with Steri-Strips for the skin. Sterile dressing applied. The patient awakened from her anesthetic and taken to the recovery room in satisfactory condition. ATIF CHING MD DR: CARIE/alexia JOB#: [id number] / [id number]
[2016-08-27] MEDS: ENOXAPARIN 30 MG/0.3 ML SYRINGE. SQ SCH (12:34)
[2016-08-27 15:00] VITALS: BP 111/45
[2016-08-27 19:00] VITALS: BP 118/53
[2016-08-27] MEDS: ATORVASTATIN CALCIUM 40 MG TABLET. PO SCH (21:40)
[2016-08-27 23:16] VITALS: BP 113/58
[2016-08-28 03:00] VITALS: BP 104/53
[2016-08-28 07:00] VITALS: BP 113/64
[2016-08-28] MEDS: CETIRIZINE HCL 10 MG TABLET. PO SCH (08:55)
[2016-08-28] MEDS: CHOLECALCIFEROL (VITAMIN D3) 1,000 UNIT TABLET PO SCH (08:55)
[2016-08-28] MEDS: LOSARTAN POTASSIUM 50 MG TABLET. PO SCH (08:55)
[2016-08-28] MEDS: buPROPion SR 150 MG TABLET.SA PO SCH ×2 (08:55→20:05)
[2016-08-28] MEDS: hydroCHLOROthiazide 25 MG TABLET PO SCH (08:55)
[2016-08-28 11:00] VITALS: BP 116/63
--- NOTE | 2016-08-28 11:45 | PDOC ---
SHELLIE MATA BOOKKEEPING MACHINE OPERATOR 08/28/16 1145: SURGICAL PROGRESS NOTE Subjective no complaints talking on phone Vital Signs Vital Signs Date Time Temp Pulse Resp B/P Pulse Ox O2 Delivery O2 Flow Rate FiO2 08/28/16 11:00 99.4 58 20 116/63 100 Room Air 99.4 08/28/16 08:00 2.0 I&O Intake and Output 08/28/16 07:00 Intake Total 400 ml Output Total 40 ml Balance 360 ml Intake Oral 400 ml Drainage Total 40 ml # Voids 2 General: Alert, Oriented X3, Cooperative, No acute distress Skin: Other (left breast incision c/d/i, no erythema or ecchymosis, drains serosang) Labs Laboratory Tests Test 08/26/16 17:30 08/27/16 05:05 White Blood Count 6.7x10^3/uL (4.0-11.0) 6.4x10^3/uL (4.0-11.0) Red Blood Count 2.97x10^6/uL (3.50-5.40) 2.98x10^6/uL (3.50-5.40) Hemoglobin 8.3g/dL (12.0-15.5) 8.5g/dL (12.0-15.5) Hematocrit 26.1% (36.0-47.0) 25.7% (36.0-47.0) Mean Corpuscular Volume 88fL (79-100) 86fL (79-100) Mean Corpuscular Hemoglobin 28pg (25-35) 29pg (25-35) Mean Corpuscular Hemoglobin Concent 32g/dL (31-37) 33g/dL (31-37) Red Cell Distribution Width 17.1% (11.5-14.5) 17.0% (11.5-14.5) Platelet Count 165x10^3/uL (140-400) 180x10^3/uL (140-400) Neutrophils (%) (Auto) 63% (31-73) 55% (31-73) Lymphocytes (%) (Auto) 24% (24-48) 32% (24-48) Monocytes (%) (Auto) 10% (0-9) 9% (0-9) Eosinophils (%) (Auto) 2% (0-3) 4% (0-3) Basophils (%) (Auto) 1% (0-3) 1% (0-3) Neutrophils # (Auto) 4.3x10^3uL (1.8-7.7) 3.6x10^3uL (1.8-7.7) Lymphocytes # (Auto) 1.6x10^3/uL (1.0-4.8) 2.0x10^3/uL (1.0-4.8) Monocytes # (Auto) 0.7x10^3/uL (0.0-1.1) 0.6x10^3/uL (0.0-1.1) Eosinophils # (Auto) 0.1x10^3/uL (0.0-0.7) 0.2x10^3/uL (0.0-0.7) Basophils # (Auto) 0.0x10^3/uL (0.0-0.2) 0.0x10^3/uL (0.0-0.2) Sodium Level 139mmol/L (136-145) Potassium Level 4.5mmol/L (3.5-5.1) Chloride Level 107mmol/L (98-107) Carbon Dioxide Level 24mmol/L (21-32) Anion Gap 8 (6-14) Blood Urea Nitrogen 30mg/dL (7-20) Creatinine 2.2mg/dL (0.6-1.0) Estimated GFR (Cockcroft-Gault) 26.9 Glucose Level 96mg/dL (70-99) Calcium Level 8.2mg/dL (8.5-10.1) Problem List Problems Medical Problems: (1) Anemia Status: Acute Assessment/Plan s/p radial mastectomy, drain output decreasing supportive care dc planning Problems: FATOUMATA OLVERA MD 08/28/16 2018: SURGICAL PROGRESS NOTE Assessment/Plan Agree with above Problems: SHELLIE MATA [employer]OOKKEEPING MACHINE OPERATOR Aug 28, 2016 11:45 FATOUMATA OLVERA MD Aug 28, 2016 20:18
--- NOTE | 2016-08-28 12:18 | PDOC ---
PROGRESS NOTES Subjective Subjective Bowels moved, denies pain, post mastectomy drains still draining, still with hip and back pain Objective Objective Vital Signs Date Time Temp Pulse Resp B/P Pulse Ox O2 Delivery O2 Flow Rate FiO2 08/28/16 11:00 99.4 58 20 116/63 100 Room Air 99.4 08/28/16 08:00 2.0 Intake and Output 08/28/16 07:00 Intake Total 400 ml Output Total 40 ml Balance 360 ml Intake Oral 400 ml Drainage Total 40 ml # Voids 2 Physical Exam Abdomen: Normal bowel sounds, Soft Heart: Regular rate, Other (2/6 murmur) Extremities: No clubbing, No cyanosis General: Alert, Oriented X3, Cooperative HEENT: Atraumatic Lungs: Clear to auscultation Neck: Supple Neuro: Normal speech Psych/Mental Status: Mental status NL Skin: Other (left mastectomy incision clean and dry) Assessment Assessment Problems Medical Problems: breast cancer - s/p radical left mastectomy, lymph node sampling, path pending OA hips - bone scan negative for mets Anemia - stable after transfusion - monitoring 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 Labs Laboratory Tests Test 08/26/16 17:30 08/27/16 05:05 White Blood Count 6.7x10^3/uL (4.0-11.0) 6.4x10^3/uL (4.0-11.0) Red Blood Count 2.97x10^6/uL (3.50-5.40) 2.98x10^6/uL (3.50-5.40) Hemoglobin 8.3g/dL (12.0-15.5) 8.5g/dL (12.0-15.5) Hematocrit 26.1% (36.0-47.0) 25.7% (36.0-47.0) Mean Corpuscular Volume 88fL (79-100) 86fL (79-100) Mean Corpuscular Hemoglobin 28pg (25-35) 29pg (25-35) Mean Corpuscular Hemoglobin Concent 32g/dL (31-37) 33g/dL (31-37) Red Cell Distribution Width 17.1% (11.5-14.5) 17.0% (11.5-14.5) Platelet Count 165x10^3/uL (140-400) 180x10^3/uL (140-400) Neutrophils (%) (Auto) 63% (31-73) 55% (31-73) Lymphocytes (%) (Auto) 24% (24-48) 32% (24-48) Monocytes (%) (Auto) 10% (0-9) 9% (0-9) Eosinophils (%) (Auto) 2% (0-3) 4% (0-3) Basophils (%) (Auto) 1% (0-3) 1% (0-3) Neutrophils # (Auto) 4.3x10^3uL (1.8-7.7) 3.6x10^3uL (1.8-7.7) Lymphocytes # (Auto) 1.6x10^3/uL (1.0-4.8) 2.0x10^3/uL (1.0-4.8) Monocytes # (Auto) 0.7x10^3/uL (0.0-1.1) 0.6x10^3/uL (0.0-1.1) Eosinophils # (Auto) 0.1x10^3/uL (0.0-0.7) 0.2x10^3/uL (0.0-0.7) Basophils # (Auto) 0.0x10^3/uL (0.0-0.2) 0.0x10^3/uL (0.0-0.2) Sodium Level 139mmol/L (136-145) Potassium Level 4.5mmol/L (3.5-5.1) Chloride Level 107mmol/L (98-107) Carbon Dioxide Level 24mmol/L (21-32) Anion Gap 8 (6-14) Blood Urea Nitrogen 30mg/dL (7-20) Creatinine 2.2mg/dL (0.6-1.0) Estimated GFR (Cockcroft-Gault) 26.9 Glucose Level 96mg/dL (70-99) Calcium Level 8.2mg/dL (8.5-10.1) Microbiology 424/17 Urine Culture - Final, Complete 08/22/16 Urine Culture Result 1 ([facility]) - Final, Complete Medications Current Medications Ondansetron HCl (Zofran) 4 mg PRN Q8HRS PRN IV NAUSEA/VOMITING; Start 08/22/16 at 13:45; Stop 08/23/16 at 13:44; Status DC Atorvastatin Calcium (Lipitor) 40 mg QHS PO Last administered on 08/27/16 21: 40; Start 08/22/16 at 21:00 Bupropion HCl (Wellbutrin Sr) 150 mg BID PO Last administered on 08/28/16 08: 55; Start 08/22/16 at 21:00 Metoprolol Tartrate (Lopressor) 25 mg BID PO Last administered on 08/26/16 19: 58; Start 08/22/16 at 21:00; Stop 08/27/16 at 07:11; Status DC Vitamin D (Vitamin D3) 2,000 unit DAILY PO Last administered on 08/28/16 08:55 ; Start 08/23/16 at 09:00 Cetirizine HCl (Zyrtec) 10 mg DAILY PO Last administered on 08/28/16 08:55; Start 08/23/16 at 09:00 Acetaminophen (Tylenol) 500 mg 1X ONCE PO Last administered on 08/22/16 17:53 ; Start 08/22/16 at 17:15; Stop 08/22/16 at 17:21; Status DC Acetaminophen (Tylenol) 500 mg PRN Q4HRS PRN PO MILD PAIN / TEMP Last administered on 08/24/16 14:00; Start 08/23/16 at 01:00 Acetaminophen (Tylenol) 1,000 mg PRN Q4HRS PRN PO MILD PAIN Last administered on 08/25/16 00:42; Start 08/23/16 at 01:00 Iohexol (Omnipaque 240 Mg/ml) 30 ml 1X ONCE PO Last administered on 08/24/16 10:47; Start 08/24/16 at 08:45; Stop 08/24/16 at 08:46; Status DC Info (Do NOT chart on this entry -- for MONITORING) 1 each PRN DAILY PRN MC SEE COMMENTS; Start 08/24/16 at 08:45; Stop 08/26/16 at 08:44; Status DC Ondansetron HCl (Zofran) 4 mg PRN Q6HRS PRN IV NAUSEA/VOMITING; Start 08/25/16 at 07:00; Stop 08/25/16 at 18:00; Status DC Fentanyl Citrate (Fentanyl 2ml Vial) 25 mcg PRN Q5MIN PRN IV MILD PAIN; Start 08/25/16 at 07:00; Stop 08/25/16 at 18:00; Status DC Fentanyl Citrate (Fentanyl 2ml Vial) 50 mcg PRN Q5MIN PRN IV MODERATE PAIN Last administered on 08/25/16 12:22; Start 08/25/16 at 07:00; Stop 08/25/16 at 18:00; Status DC Morphine Sulfate 1 mg 1 mg PRN Q10MIN PRN IV SEVERE PAIN; Start 08/25/16 at 07: 00; Stop 08/25/16 at 18:00; Status DC Lactated Ringer's (Iv Lactated Ringers) 1,000 ml @ 30 mls/hr Q24H IV Last administered on 08/25/16 09:00; Start 08/25/16 at 07:00; Stop 08/25/16 at 18:59 ; Status DC Lidocaine HCl 2 ml PRN 1X PRN ID PRIOR TO IV START; Start 08/25/16 at 07:00; Stop 08/25/16 at 18:00; Status DC Hydromorphone HCl (Dilaudid) 0.5 mg PRN Q10MIN PRN IV SEV PAIN, Second choice; Start 08/25/16 at 07:00; Stop 08/25/16 at 18:00; Status DC Prochlorperazine Edisylate 5 mg 5 mg PACU PRN PRN IV NAUSEA, MRX1; Start at 07:00; Stop 08/25/16 at 18:00; Status DC Cefazolin Sodium (Ancef 1gm Ivpb For Omni) 50 ml @ 100 mls/hr 1X PREOP PRN IV prohylaxis Last administered on 08/25/16 10:06; Start 08/25/16 at 06:00; Stop 08/25/16 at 18:00; Status DC Bupivacaine HCl/ Epinephrine Bitart (Sensorcain-Mpf Epi 0.5%-1:[id number]) 30 ml STK -MED ONCE .ROUTE Last administered on 08/25/16 10:50; Start 08/25/16 at 07:21 ; Stop 08/25/16 at 07:22; Status DC Isosulfan Blue 50 mg 50 mg STK-MED ONCE SQ Last administered on 08/25/16 10:58 ; Start 08/25/16 at 07:22; Stop 08/25/16 at 07:23; Status DC Propofol (Diprivan) 20 ml @ As Directed STK-MED ONCE IV ; Start 08/25/16 at 08: 09; Stop 08/25/16 at 08:10; Status DC Lidocaine HCl (Lidocaine HCl 2% Abboject) 100 mg STK-MED ONCE .ROUTE ; Start at 08:09; Stop 08/25/16 at 08:10; Status DC Fentanyl Citrate (Fentanyl 2ml Vial) 100 mcg STK-MED ONCE .ROUTE ; Start at 08:09; Stop 08/25/16 at 08:10; Status DC Dexamethasone Sodium Phosphate (Decadron) 20 mg STK-MED ONCE .ROUTE ; Start at 10:02; Stop 08/25/16 at 10:03; Status DC Ephedrine Sulfate (Akovaz) 50 mg STK-MED ONCE .ROUTE ; Start 08/25/16 at 10:02; Stop 08/25/16 at 10:03; Status DC Ondansetron HCl (Zofran) 4 mg STK-MED ONCE .ROUTE ; Start 08/25/16 at 10:40; Stop 08/25/16 at 10:41; Status DC Sevoflurane (Ultane) 30 ml STK-MED ONCE IH ; Start 08/25/16 at 10:40; Stop 08/25 at 10:41; Status DC Fentanyl Citrate (Fentanyl 2ml Vial) 100 mcg STK-MED ONCE .ROUTE ; Start at 10:50; Stop 08/25/16 at 10:51; Status DC Acetaminophen/ Hydrocodone Bitart (Lortab 5/325) 1 tab PRN Q4HRS PRN PO MODERATE - SEVERE PAIN Last administered on 08/27/16 21:43; Start 08/25/16 at 12:00 Enoxaparin Sodium (Lovenox 30mg Syringe) 30 mg Q24H SQ Last administered on 12:34; Start 08/25/16 at 12:00 Hydromorphone HCl (Dilaudid) 1 mg PRN Q4HRS PRN IV PAIN Last administered on 00:00; Start 08/25/16 at 15:15 Bisacodyl (Dulcolax Supp) 10 mg PRN DAILY PRN PA CONSTIPATION; Start 08/26/16 at 09:30 Bisacodyl 5 mg 5 mg PRN DAILY PRN PO CONSTIPATION Last administered on 19:58; Start 08/26/16 at 09:30 Sodium Chloride (Iv Sodium Chloride 0.9% 1000ml Bag) 1,000 ml @ 75 mls/hr [id number] IV Last administered on 08/26/16 19:58; Start 08/26/16 at 11:00; Stop 08/27/16 at 13:42; Status DC Losartan Potassium (Cozaar) 100 mg DAILY PO Last administered on 08/28/16 08: 55; Start 08/27/16 at 09:00 Hydrochlorothiazide (Hydrodiuril) 25 mg DAILY PO Last administered on 08:55; Start 08/27/16 at 09:00 Active Scripts Active Reported Loratadine 10 Mg Tablet 1 Tab PO DAILY Atorvastatin Calcium 40 Mg Tablet 1 Tab PO QHS Metoprolol Tartrate 25 Mg Tablet 1 Tab PO BID Losartan-Hctz 100-25 Mg Tab (Losartan/Hydrochlorothiazide) 1 Each Tablet 1 Tab PO DAILY Furosemide 40 Mg Tablet 1 Tab PO DAILY Aspirin 81 Mg Tab.chew 1 Tab PO DAILY Vitamin D (Cholecalciferol (Vitamin D3)) 2,000 Unit Capsule 1 Cap PO DAILY Wellbutrin Sr (Bupropion Hcl) 150 Mg Tablet.er 1 Tab PO BID Vitals/I & O Vital Sign - Last 24 Hours 08/27/16 08/27/16 08/27/16 08/27/16 15:00 19:00 20:10 23:16 Temp 98.2 98.1 98.2 98.2 98.1 98.2 Pulse 16 54 59 Resp 17 20 18 B/P 111/45 118/53 113/58 Pulse Ox 98 95 95 O2 Delivery Room Air Room Air Room Air Room Air 08/28/16 08/28/16 08/28/16 08/28/16 03:00 07:00 08:00 08:55 Temp 97.8 98.2 97.8 98.2 Pulse 52 57 57 Resp 17 20 B/P 104/53 113/64 113/64 Pulse Ox 99 93 O2 Delivery Room Air Room Air Room Air O2 Flow Rate 2.0 08/28/16 11:00 Temp 99.4 99.4 Pulse 58 Resp 20 B/P 116/63 Pulse Ox 100 O2 Delivery Room Air Intake and Output 08/27/16 08/27/16 08/28/16 15:00 23:00 07:00 Intake Total 400 ml Output Total 40 ml Balance -40 ml 400 ml MICHI STEVEN MD Aug 28, 2016 12:18
[2016-08-28] MEDS: ENOXAPARIN 30 MG/0.3 ML SYRINGE. SQ SCH (12:54)
[2016-08-28 15:00] VITALS: BP 106/63
[2016-08-28 19:00] VITALS: BP 154/66
[2016-08-28] MEDS: HYDROcodone/APAP 5/325MG 1 TAB TABLET PO PRN (20:06)
[2016-08-28] MEDS: ATORVASTATIN CALCIUM 40 MG TABLET. PO SCH (20:06)
[2016-08-28 23:00] VITALS: BP 126/56
[2016-08-29 03:00] VITALS: BP 116/55
[2016-08-29] MEDS: HYDROcodone/APAP 5/325MG 1 TAB TABLET PO PRN ×2 (04:20→20:31)
[2016-08-29 05:49] LABS: BASO % 1 % (0-3); EOS % 5 % (0-3); HEMATOCRIT 25.2 % (36.0-47.0); HEMOGLOBIN 8.3 g/dL (12.0-15.5); LYMPH # 1.4 x10^3/uL (1.0-4.8); LYMPH % 28 % (24-48); MEAN CORPUSCULAR HEMOGLOBIN 28 pg (25-35); MEAN CORPUSCULAR HGB CONC 33 g/dL (31-37); MEAN CORPUSCULAR VOLUME 86 fL (79-100); MONO % 11 % (0-9); NEUT % 56 % (31-73); PLATELET COUNT 168 x10^3/uL (140-400); RED BLOOD COUNT 2.93 x10^6/uL (3.50-5.40); RED CELL DISTRIBUTION WIDTH 16.8 % (11.5-14.5)
[2016-08-29 06:11] LABS: ALBUMIN 2.4 g/dL (3.4-5.0); ALBUMIN/GLOBULIN RATIO 0.6 (1.0-1.7); CALCIUM 8.5 mg/dL (8.5-10.1); CREATININE 2.2 mg/dL (0.6-1.0); GFR 26.9; POTASSIUM 4.8 mmol/L (3.5-5.1); TOTAL BILIRUBIN 0.2 mg/dL (0.2-1.0); TOTAL PROTEIN 6.3 g/dL (6.4-8.2)
[2016-08-29 07:00] VITALS: BP 119/59
--- NOTE | 2016-08-29 08:58 | PDOC ---
Subjective: Subjective: Onc f/u- breast ca No complaints Anticipated DC soon Objective: Vital Signs: Vital Signs Date Time Temp Pulse Resp B/P Pulse Ox O2 Delivery O2 Flow Rate FiO2 08/29/16 07:00 98.1 55 18 119/59 97 Room Air 98.1 08/29/16 05:20 2.0 Physical Exam: Heart: Other (s/p left mastectomy, dressings d/c/i) Extremities: Other (1+ edema chronically RLE) General: Alert, Oriented X3, No acute distress Lungs: Other (no resp distress) Psych/Mental Status: Mental status NL Labs/Imaging: Path pending Assessment/Plan A/P: 1. Locally advanced Triple negative breast cancer of left breast, clinically [id number] stage III s/p mastectomy 08/22/16 - Pall care following. Family agrees pt unlikely to be able to tolerate chemo, considering adjuvant RT based on pending path - CT C/A/P and bone scan neg for mets 2. CKD stage IV 3. Anemia of CKD on aranesp with occasional transfusion needs - Will make tolerating chemo very difficult with no reserve for cytopenias induced by chemo 4. Illiteracy, poor understanding of health. Family very supportive and helpful with her decision making. Will f/u in clinic in 1 week to review pending path. LYDIA PATTERSON DO August 29, 2016 08:58
[2016-08-29] MEDS: LOSARTAN POTASSIUM 50 MG TABLET. PO SCH (09:49)
[2016-08-29] MEDS: hydroCHLOROthiazide 25 MG TABLET PO SCH (09:49)
[2016-08-29] MEDS: CETIRIZINE HCL 10 MG TABLET. PO SCH (09:49)
[2016-08-29] MEDS: CHOLECALCIFEROL (VITAMIN D3) 1,000 UNIT TABLET PO SCH (09:50)
[2016-08-29] MEDS: buPROPion SR 150 MG TABLET.SA PO SCH ×2 (09:50→20:30)
[2016-08-29 11:00] VITALS: BP 104/70
--- NOTE | 2016-08-29 11:39 | PDOC ---
SHELLIE MATA TUYERE FITTER 08/29/16 1139: SURGICAL PROGRESS NOTE Subjective doing well tolerating diet up in chair Vital Signs Vital Signs Date Time Temp Pulse Resp B/P Pulse Ox O2 Delivery O2 Flow Rate FiO2 08/29/16 11:00 97.7 55 18 104/70 100 Room Air 97.7 08/29/16 08:00 2.0 I&O Intake and Output 08/29/16 06:59 Intake Total 820 ml Output Total 385 ml Balance 435 ml Intake Oral 820 ml Drainage Total 385 ml # Voids 6 General: Alert, Oriented X3, Cooperative, No acute distress Skin: Other (Left breast incision clean, jps serosang) Labs Laboratory Tests Test 08/29/16 05:30 White Blood Count 5.0x10^3/uL (4.0-11.0) Red Blood Count 2.93x10^6/uL (3.50-5.40) Hemoglobin 8.3g/dL (12.0-15.5) Hematocrit 25.2% (36.0-47.0) Mean Corpuscular Volume 86fL (79-100) Mean Corpuscular Hemoglobin 28pg (25-35) Mean Corpuscular Hemoglobin Concent 33g/dL (31-37) Red Cell Distribution Width 16.8% (11.5-14.5) Platelet Count 168x10^3/uL (140-400) Neutrophils (%) (Auto) 56% (31-73) Lymphocytes (%) (Auto) 28% (24-48) Monocytes (%) (Auto) 11% (0-9) Eosinophils (%) (Auto) 5% (0-3) Basophils (%) (Auto) 1% (0-3) Neutrophils # (Auto) 2.8x10^3uL (1.8-7.7) Lymphocytes # (Auto) 1.4x10^3/uL (1.0-4.8) Monocytes # (Auto) 0.6x10^3/uL (0.0-1.1) Eosinophils # (Auto) 0.2x10^3/uL (0.0-0.7) Basophils # (Auto) 0.0x10^3/uL (0.0-0.2) Sodium Level 138mmol/L (136-145) Potassium Level 4.8mmol/L (3.5-5.1) Chloride Level 108mmol/L (98-107) Carbon Dioxide Level 23mmol/L (21-32) Anion Gap 7 (6-14) Blood Urea Nitrogen 26mg/dL (7-20) Creatinine 2.2mg/dL (0.6-1.0) Estimated GFR (Cockcroft-Gault) 26.9 BUN/Creatinine Ratio 12 (6-20) Glucose Level 93mg/dL (70-99) Calcium Level 8.5mg/dL (8.5-10.1) Total Bilirubin 0.2mg/dL (0.2-1.0) Aspartate Amino Transf (AST/SGOT) 12U/L (15-37) Alanine Aminotransferase (ALT/SGPT) 10U/L (14-59) Alkaline Phosphatase 85U/L (46-116) Total Protein 6.3g/dL (6.4-8.2) Albumin 2.4g/dL (3.4-5.0) Albumin/Globulin Ratio 0.6 (1.0-1.7) Laboratory Tests Test 08/29/16 05:30 White Blood Count 5.0x10^3/uL (4.0-11.0) Red Blood Count 2.93x10^6/uL (3.50-5.40) Hemoglobin 8.3g/dL (12.0-15.5) Hematocrit 25.2% (36.0-47.0) Mean Corpuscular Volume 86fL (79-100) Mean Corpuscular Hemoglobin 28pg (25-35) Mean Corpuscular Hemoglobin Concent 33g/dL (31-37) Red Cell Distribution Width 16.8% (11.5-14.5) Platelet Count 168x10^3/uL (140-400) Neutrophils (%) (Auto) 56% (31-73) Lymphocytes (%) (Auto) 28% (24-48) Monocytes (%) (Auto) 11% (0-9) Eosinophils (%) (Auto) 5% (0-3) Basophils (%) (Auto) 1% (0-3) Neutrophils # (Auto) 2.8x10^3uL (1.8-7.7) Lymphocytes # (Auto) 1.4x10^3/uL (1.0-4.8) Monocytes # (Auto) 0.6x10^3/uL (0.0-1.1) Eosinophils # (Auto) 0.2x10^3/uL (0.0-0.7) Basophils # (Auto) 0.0x10^3/uL (0.0-0.2) Sodium Level 138mmol/L (136-145) Potassium Level 4.8mmol/L (3.5-5.1) Chloride Level 108mmol/L (98-107) Carbon Dioxide Level 23mmol/L (21-32) Anion Gap 7 (6-14) Blood Urea Nitrogen 26mg/dL (7-20) Creatinine 2.2mg/dL (0.6-1.0) Estimated GFR (Cockcroft-Gault) 26.9 BUN/Creatinine Ratio 12 (6-20) Glucose Level 93mg/dL (70-99) Calcium Level 8.5mg/dL (8.5-10.1) Total Bilirubin 0.2mg/dL (0.2-1.0) Aspartate Amino Transf (AST/SGOT) 12U/L (15-37) Alanine Aminotransferase (ALT/SGPT) 10U/L (14-59) Alkaline Phosphatase 85U/L (46-116) Total Protein 6.3g/dL (6.4-8.2) Albumin 2.4g/dL (3.4-5.0) Albumin/Globulin Ratio 0.6 (1.0-1.7) Problem List Problems Medical Problems: (1) Anemia Status: Acute Assessment/Plan s/p mastectomy doing well continue drains DC when medically ready Problems: ATIF CHING MD 08/29/16 1437: SURGICAL PROGRESS NOTE Assessment/Plan pt seen earlier she was sleeping soundly I did not wake her home soon from surgery standpoint, with at least one drain in place HH? Problems: SHELLIE MATA APRN August 29, 2016 11:39 ATIF CHING MD August 29, 2016 14:37
[2016-08-29] MEDS: ENOXAPARIN 30 MG/0.3 ML SYRINGE. SQ SCH (12:17)
--- NOTE | 2016-08-29 13:11 | PDOC ---
Provider Note Provider Note 70 yo woman with locally advanced riple negative adenocarcinoma of left breast presenting with breast abscess. Preop exam consistent with extensive axillary adenopathy. Now doing well post op after mastectomy with no complaints. Final path available later today. Impression: Locally advanced adenocarcinoma of left breast. Not a candidate for adjuvant system chemotherapy due to co-morbidities. she may benefit from adjuvant chest wall and maria elena radiation depending on results of final path. General discussion with patient. She appears to have limited insight of her diagnosis and the rationale for further treatment. TYSON HUBER MD August 29, 2016 13:11
[2016-08-29 15:00] VITALS: BP 143/61
--- NOTE | 2016-08-29 16:31 | PDOC ---
PROGRESS NOTES Subjective Subjective She is hoping to go home, working with therapy, pain in hips better, 2 drains still in chest wall but less output, bowels moving, no new complaints Objective Objective Vital Signs Date Time Temp Pulse Resp B/P Pulse Ox O2 Delivery O2 Flow Rate FiO2 08/29/16 15:00 97.6 54 18 143/61 100 Room Air 97.6 08/29/16 08:00 2.0 Intake and Output 08/29/16 07:00 Intake Total 820 ml Output Total 385 ml Balance 435 ml Intake Oral 820 ml Drainage Total 385 ml # Voids 6 Physical Exam Abdomen: Soft Heart: Regular rate, Other (05/06 murmur) Extremities: No clubbing, No cyanosis General: Alert, Cooperative HEENT: Atraumatic Lungs: Clear to auscultation Neck: Supple Neuro: Normal speech Psych/Mental Status: Mental status NL Skin: No breakdown Assessment Assessment Problems Medical Problems: Plan Plan of Care breast cancer - s/p radical left mastectomy, lymph node sampling, path pending. 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 Labs Laboratory Tests Test 08/29/16 05:30 White Blood Count 5.0x10^3/uL (4.0-11.0) Red Blood Count 2.93x10^6/uL (3.50-5.40) Hemoglobin 8.3g/dL (12.0-15.5) Hematocrit 25.2% (36.0-47.0) Mean Corpuscular Volume 86fL (79-100) Mean Corpuscular Hemoglobin 28pg (25-35) Mean Corpuscular Hemoglobin Concent 33g/dL (31-37) Red Cell Distribution Width 16.8% (11.5-14.5) Platelet Count 168x10^3/uL (140-400) Neutrophils (%) (Auto) 56% (31-73) Lymphocytes (%) (Auto) 28% (24-48) Monocytes (%) (Auto) 11% (0-9) Eosinophils (%) (Auto) 5% (0-3) Basophils (%) (Auto) 1% (0-3) Neutrophils # (Auto) 2.8x10^3uL (1.8-7.7) Lymphocytes # (Auto) 1.4x10^3/uL (1.0-4.8) Monocytes # (Auto) 0.6x10^3/uL (0.0-1.1) Eosinophils # (Auto) 0.2x10^3/uL (0.0-0.7) Basophils # (Auto) 0.0x10^3/uL (0.0-0.2) Sodium Level 138mmol/L (136-145) Potassium Level 4.8mmol/L (3.5-5.1) Chloride Level 108mmol/L (98-107) Carbon Dioxide Level 23mmol/L (21-32) Anion Gap 7 (6-14) Blood Urea Nitrogen 26mg/dL (7-20) Creatinine 2.2mg/dL (0.6-1.0) Estimated GFR (Cockcroft-Gault) 26.9 BUN/Creatinine Ratio 12 (6-20) Glucose Level 93mg/dL (70-99) Calcium Level 8.5mg/dL (8.5-10.1) Total Bilirubin 0.2mg/dL (0.2-1.0) Aspartate Amino Transf (AST/SGOT) 12U/L (15-37) Alanine Aminotransferase (ALT/SGPT) 10U/L (14-59) Alkaline Phosphatase 85U/L (46-116) Total Protein 6.3g/dL (6.4-8.2) Albumin 2.4g/dL (3.4-5.0) Albumin/Globulin Ratio 0.6 (1.0-1.7) Laboratory Tests Test 08/29/16 05:30 White Blood Count 5.0x10^3/uL (4.0-11.0) Red Blood Count 2.93x10^6/uL (3.50-5.40) Hemoglobin 8.3g/dL (12.0-15.5) Hematocrit 25.2% (36.0-47.0) Mean Corpuscular Volume 86fL (79-100) Mean Corpuscular Hemoglobin 28pg (25-35) Mean Corpuscular Hemoglobin Concent 33g/dL (31-37) Red Cell Distribution Width 16.8% (11.5-14.5) Platelet Count 168x10^3/uL (140-400) Neutrophils (%) (Auto) 56% (31-73) Lymphocytes (%) (Auto) 28% (24-48) Monocytes (%) (Auto) 11% (0-9) Eosinophils (%) (Auto) 5% (0-3) Basophils (%) (Auto) 1% (0-3) Neutrophils # (Auto) 2.8x10^3uL (1.8-7.7) Lymphocytes # (Auto) 1.4x10^3/uL (1.0-4.8) Monocytes # (Auto) 0.6x10^3/uL (0.0-1.1) Eosinophils # (Auto) 0.2x10^3/uL (0.0-0.7) Basophils # (Auto) 0.0x10^3/uL (0.0-0.2) Sodium Level 138mmol/L (136-145) Potassium Level 4.8mmol/L (3.5-5.1) Chloride Level 108mmol/L (98-107) Carbon Dioxide Level 23mmol/L (21-32) Anion Gap 7 (6-14) Blood Urea Nitrogen 26mg/dL (7-20) Creatinine 2.2mg/dL (0.6-1.0) Estimated GFR (Cockcroft-Gault) 26.9 BUN/Creatinine Ratio 12 (6-20) Glucose Level 93mg/dL (70-99) Calcium Level 8.5mg/dL (8.5-10.1) Total Bilirubin 0.2mg/dL (0.2-1.0) Aspartate Amino Transf (AST/SGOT) 12U/L (15-37) Alanine Aminotransferase (ALT/SGPT) 10U/L (14-59) Alkaline Phosphatase 85U/L (46-116) Total Protein 6.3g/dL (6.4-8.2) Albumin 2.4g/dL (3.4-5.0) Albumin/Globulin Ratio 0.6 (1.0-1.7) Microbiology 08/22/16 Urine Culture - Final, Complete 08/22/16 Urine Culture Result 1 (PAOLA) - Final, Complete Medications Current Medications Ondansetron HCl (Zofran) 4 mg PRN Q8HRS PRN IV NAUSEA/VOMITING; Start 08/22/16 at 13:45; Stop 08/23/16 at 13:44; Status DC Atorvastatin Calcium (Lipitor) 40 mg QHS PO Last administered on 08/28/16 20: 06; Start 08/22/16 at 21:00 Bupropion HCl (Wellbutrin Sr) 150 mg BID PO Last administered on 08/29/16 09:50 ; Start 08/22/16 at 21:00 Metoprolol Tartrate (Lopressor) 25 mg BID PO Last administered on 08/26/16 19: 58; Start 08/22/16 at 21:00; Stop 08/27/16 at 07:11; Status DC Vitamin D (Vitamin D3) 2,000 unit DAILY PO Last administered on 08/29/16 09:50 ; Start 08/23/16 at 09:00 Cetirizine HCl (Zyrtec) 10 mg DAILY PO Last administered on 08/29/16 09:49; Start 08/23/16 at 09:00 Acetaminophen (Tylenol) 500 mg 1X ONCE PO Last administered on 08/22/16 17:53 ; Start 08/22/16 at 17:15; Stop 08/22/16 at 17:21; Status DC Acetaminophen (Tylenol) 500 mg PRN Q4HRS PRN PO MILD PAIN / TEMP Last administered on 08/24/16 14:00; Start 08/23/16 at 01:00 Acetaminophen (Tylenol) 1,000 mg PRN Q4HRS PRN PO MILD PAIN Last administered on 08/25/16 00:42; Start 08/23/16 at 01:00 Iohexol (Omnipaque 240 Mg/ml) 30 ml 1X ONCE PO Last administered on 08/24/16 10:47; Start 08/24/16 at 08:45; Stop 08/24/16 at 08:46; Status DC Info (Do NOT chart on this entry -- for MONITORING) 1 each PRN DAILY PRN MC SEE COMMENTS; Start 08/24/16 at 08:45; Stop 08/26/16 at 08:44; Status DC Ondansetron HCl (Zofran) 4 mg PRN Q6HRS PRN IV NAUSEA/VOMITING; Start 08/25/16 at 07:00; Stop 08/25/16 at 18:00; Status DC Fentanyl Citrate (Fentanyl 2ml Vial) 25 mcg PRN Q5MIN PRN IV MILD PAIN; Start 08/25/16 at 07:00; Stop 08/25/16 at 18:00; Status DC Fentanyl Citrate (Fentanyl 2ml Vial) 50 mcg PRN Q5MIN PRN IV MODERATE PAIN Last administered on 08/25/16 12:22; Start 08/25/16 at 07:00; Stop 08/25/16 at 18:00; Status DC Morphine Sulfate 1 mg 1 mg PRN Q10MIN PRN IV SEVERE PAIN; Start 08/25/16 at 07: 00; Stop 08/25/16 at 18:00; Status DC Lactated Ringer's (Iv Lactated Ringers) 1,000 ml @ 30 mls/hr Q24H IV Last administered on 08/25/16 09:00; Start 08/25/16 at 07:00; Stop 08/25/16 at 18:59 ; Status DC Lidocaine HCl 2 ml PRN 1X PRN ID PRIOR TO IV START; Start 08/25/16 at 07:00; Stop 08/25/16 at 18:00; Status DC Hydromorphone HCl (Dilaudid) 0.5 mg PRN Q10MIN PRN IV SEV PAIN, Second choice; Start 08/25/16 at 07:00; Stop 08/25/16 at 18:00; Status DC Prochlorperazine Edisylate 5 mg 5 mg PACU PRN PRN IV NAUSEA, MRX1; Start at 07:00; Stop 08/25/16 at 18:00; Status DC Cefazolin Sodium (Ancef 1gm Ivpb For Omni) 50 ml @ 100 mls/hr 1X PREOP PRN IV prohylaxis Last administered on 08/25/16 10:06; Start 08/25/16 at 06:00; Stop 08/25/16 at 18:00; Status DC Bupivacaine HCl/ Epinephrine Bitart (Sensorcain-Mpf Epi 0.5%-1:[id number]) 30 ml STK -MED ONCE .ROUTE Last administered on 08/25/16 10:50; Start 08/25/16 at 07:21 ; Stop 08/25/16 at 07:22; Status DC Isosulfan Blue 50 mg 50 mg STK-MED ONCE SQ Last administered on 08/25/16 10:58 ; Start 08/25/16 at 07:22; Stop 08/25/16 at 07:23; Status DC Propofol (Diprivan) 20 ml @ As Directed STK-MED ONCE IV ; Start 08/25/16 at 08: 09; Stop 08/25/16 at 08:10; Status DC Lidocaine HCl (Lidocaine HCl 2% Abboject) 100 mg STK-MED ONCE .ROUTE ; Start at 08:09; Stop 08/25/16 at 08:10; Status DC Fentanyl Citrate (Fentanyl 2ml Vial) 100 mcg STK-MED ONCE .ROUTE ; Start at 08:09; Stop 08/25/16 at 08:10; Status DC Dexamethasone Sodium Phosphate (Decadron) 20 mg STK-MED ONCE .ROUTE ; Start at 10:02; Stop 08/25/16 at 10:03; Status DC Ephedrine Sulfate (Akovaz) 50 mg STK-MED ONCE .ROUTE ; Start 08/25/16 at 10:02; Stop 08/25/16 at 10:03; Status DC Ondansetron HCl (Zofran) 4 mg STK-MED ONCE .ROUTE ; Start 08/25/16 at 10:40; Stop 08/25/16 at 10:41; Status DC Sevoflurane (Ultane) 30 ml STK-MED ONCE IH ; Start 08/25/16 at 10:40; Stop 08/25 at 10:41; Status DC Fentanyl Citrate (Fentanyl 2ml Vial) 100 mcg STK-MED ONCE .ROUTE ; Start at 10:50; Stop 08/25/16 at 10:51; Status DC Acetaminophen/ Hydrocodone Bitart (Lortab 5/325) 1 tab PRN Q4HRS PRN PO MODERATE - SEVERE PAIN Last administered on 08/29/16 04:20; Start 08/25/16 at 12 :00 Enoxaparin Sodium (Lovenox 30mg Syringe) 30 mg Q24H SQ Last administered on 08/29 12:17; Start 08/25/16 at 12:00 Hydromorphone HCl (Dilaudid) 1 mg PRN Q4HRS PRN IV PAIN Last administered on 00:00; Start 08/25/16 at 15:15 Bisacodyl (Dulcolax Supp) 10 mg PRN DAILY PRN [place] CONSTIPATION; Start 08/26/16 at 09:30 Bisacodyl 5 mg 5 mg PRN DAILY PRN PO CONSTIPATION Last administered on 19:58; Start 08/26/16 at 09:30 Sodium Chloride (Iv Sodium Chloride 0.9% 1000ml Bag) 1,000 ml @ 75 mls/hr [id number] IV Last administered on 08/26/16 19:58; Start 08/26/16 at 11:00; Stop 08/27/16 at 13:42; Status DC Losartan Potassium (Cozaar) 100 mg DAILY PO Last administered on 08/29/16 09:49 ; Start 08/27/16 at 09:00 Hydrochlorothiazide (Hydrodiuril) 25 mg DAILY PO Last administered on 08/29/16 09:49; Start 08/27/16 at 09:00 Active Scripts Active Reported Loratadine 10 Mg Tablet 1 Tab PO DAILY Atorvastatin Calcium 40 Mg Tablet 1 Tab PO QHS Metoprolol Tartrate 25 Mg Tablet 1 Tab PO BID Losartan-Hctz 100-25 Mg Tab (Losartan/Hydrochlorothiazide) 1 Each Tablet 1 Tab PO DAILY Furosemide 40 Mg Tablet 1 Tab PO DAILY Aspirin 81 Mg Tab.chew 1 Tab PO DAILY Vitamin D (Cholecalciferol (Vitamin D3)) 2,000 Unit Capsule 1 Cap PO DAILY Wellbutrin Sr (Bupropion Hcl) 150 Mg Tablet.er 1 Tab PO BID Vitals/I & O Vital Sign - Last 24 Hours 08/28/16 08/28/16 08/28/16 08/28/16 19:00 20:00 20:06 23:00 Temp 98.5 98.5 98.5 98.5 Pulse 68 67 Resp 18 18 B/P 154/66 126/56 Pulse Ox 99 100 O2 Delivery Room Air Room Air Room Air Room Air 08/29/16 08/29/16 08/29/16 08/29/16 03:00 04:20 05:20 07:00 Temp 97.8 98.1 97.8 98.1 Pulse 55 55 Resp 18 17 18 B/P 116/55 119/59 Pulse Ox 99 99 97 O2 Delivery Room Air Room Air Room Air Room Air O2 Flow Rate 2.0 08/29/16 08/29/16 08/29/16 08/29/16 08:00 09:49 11:00 15:00 Temp 97.7 97.6 97.7 97.6 Pulse 55 55 54 Resp 18 B/P 119/59 104/70 143/61 Pulse Ox 100 100 O2 Delivery Room Air Room Air Room Air O2 Flow Rate 2.0 Intake and Output 08/28/16 08/28/16 08/29/16 15:00 23:00 07:00 Intake Total 480 ml 340 ml Output Total 210 ml 145 ml 30 ml Balance -210 ml 335 ml 310 ml MICHI STEVEN MD August 29, 2016 16:31
[2016-08-29 19:00] VITALS: BP 170/80
[2016-08-29] MEDS: ATORVASTATIN CALCIUM 40 MG TABLET. PO SCH (20:31)
[2016-08-29 23:00] VITALS: BP 129/72
[2016-08-30 03:00] VITALS: BP 140/82
[2016-08-30 07:00] VITALS: BP 134/70
[2016-08-30] MEDS ORDERED: ACET500T55 PO (08:59)
[2016-08-30] MEDS ORDERED: HYDR-2666 PO (08:59)
[2016-08-30] MEDS ORDERED: BISA5TAB4 PO (08:59)
[2016-08-30] MEDS ORDERED: Bisacodyl PR (08:59)
--- NOTE | 2016-08-30 10:41 | PDOC ---
Provider Note Provider Note SURG POD 5 left MRM no new c/o home today with drains, HH visits f/u my office 09/02 incision c/d ATIF CHING MD August 30, 2016 10:41
[2016-08-30 11:11] VITALS: BP 133/63
[2016-08-30] MEDS: hydroCHLOROthiazide 25 MG TABLET PO SCH (11:52)
[2016-08-30] MEDS: buPROPion SR 150 MG TABLET.SA PO SCH ×2 (11:52→21:00)
[2016-08-30] MEDS: CETIRIZINE HCL 10 MG TABLET. PO SCH (11:53)
[2016-08-30] MEDS: CHOLECALCIFEROL (VITAMIN D3) 1,000 UNIT TABLET PO SCH (11:53)
[2016-08-30] MEDS: LOSARTAN POTASSIUM 50 MG TABLET. PO SCH (11:53)
[2016-08-30] MEDS: ENOXAPARIN 30 MG/0.3 ML SYRINGE. SQ SCH (11:54)
[2016-08-30 15:00] VITALS: BP 134/72
--- NOTE | 2016-08-30 17:07 | PATHOLOGY ---
PATHOLOGY REPORT * * * * * * * * FINAL DIAGNOSIS: A. Lymph node, left sentinel lymph node excision: - METASTATIC POORLY DIFFERENTIATED CARCINOMA (/). B. Left breast and axillary lymph nodes, left mastectomy with axillary contents: - INVASIVE HIGH GRADE DUCTAL CARCINOMA FORMING A CENTRALLY NECROTIC TUMOR MASS OF THE UPPER INNER AND LOWER INNER QUADRANT, MEASURING APPROXIMATELY 6.6 CM IN GREATEST DIMENSION. SEE SYNOPTIC REPORT. - FOCAL TUMOR INVASION OF SKIN IDENTIFIED. - Previous biopsy site/drainage changes of breast with ulceration of skin and underlying necrotic tumor and granulation tissue with focal foreign body giant cell reaction. - METASTATIC POORLY DIFFERENTIATED CARCINOMA INVOLVING FOUR OF SEVEN LYMPH NODES (4/7). - Mammary duct ectasia, focal moderate ductal epithelial hyperplasia, and chronic inflammation of breast tissue adjacent to tumor. C. Lymph nodes, left axillary sampling: - Four lymph nodes negative for tumor (0/4). (JPM:csd; d/t: 08/29/2016) Clinical History: Palpable mass Radiologic Finding: Mass or architectural distortion Procedure: Total mastectomy (including nipple and skin) Lymph Node Sampling: [place] lymph node(s) Axillary dissection (partial or complete dissection) Specimen Laterality: Left Tumor Site of Invasive Carcinoma: Upper inner quadrant Lower inner quadrant Presence of Invasive Carcinoma: Invasive ductal carcinoma (no special type or not otherwise specified) Histologic Grade: Tubule formation: Score 3: <10% of tumor area forming glandular/tubular structures Nuclear pleomorphism: Score 3: Vesicular nuclei, often with prominent nucleoli, exhibiting marked variation in size and shape, occasionally with very large and bizarre forms Mitotic Rate: Score 3 (>=8 mitoses per mm2) Jesus Alberto Histologic Score-Grade III: 8-9 points Ductal Carcinoma In Situ: No DCIS is present Lobular Carcinoma In Situ (LCIS): Not identified: . Tumor Size: Size of Largest Invasive Carcinoma: Greatest dimension of largest focus of invasion > 1 mm Greatest dimension: 66 mm Skin: Invasive carcinoma directly invades into the dermis or epidermis without skin ulceration Satellite foci not identified: . DCIS does not involve the nipple epidermis No skeletal muscle present Invasive Carcinoma Margins: Margins uninvolved by invasive carcinoma. Distance from closest margin: 65 mm Closest Uninvolved Margin-Posterior DCIS Margins: DCIS not present in specimen Lymph-Vascular Invasion: Not identified: . Dermal Lymph-Vascular Invasion: Not identified: . Microcalcifications: Not identified: . Treatment Effect: No known presurgical therapy Lymph Nodes: Total number of nodes examined (sentinel and nonsentinel): 12 Micro / Macro Metastases present Number of lymph nodes with macrometastases (>2 mm): 5 Extranodal extension not identified: . Number of [place] Lymph Nodes examined: 1 Method of Evaluation of [place] Lymph Nodes: Hematoxylin and eosin (H-E), 1 level Estrogen Receptor: Performed on another specimen, number: [id number] Results from other specimen: 0% Progesterone Receptor: Performed on another specimen, number: [id number] Results from other specimen: 0% HER2 Immunoperoxidase Results: Performed on another specimen, number: [id number] Results from other specimen: 0. In Situ Hybridization (FISH or CISH) for HER2 Results: Not performed: . Other Ancillary Studies: Performed on another specimen Specimen (accession number): [id number] Name of test: Ki67 Results: 75% TNM Descriptor(s): Primary Tumor (Invasive Carcinoma) (pT): pT3: Tumor > 50 mm in greatest dimension Category (pN): pN2a: Metastases in 4 to 9 axillary lymph nodes (at least 1 tumor deposit greater than 2.0 mm) Additional Pathologic Findings: See diagnoses. REPORT ELECTRONICALLY SIGNED BY: Brnenan Mcbride M.D. DATE/TIME: 08/30/2016 17:06 * * * * * * * * GROSS PATHOLOGY: A. The specimen is received fresh and it is labeled "Tammi Milesumu, left axillary sentinel node" and consists of a firm yellow-white lymph node measuring 2.5 x 1.6 x 1.6 cm. Cut sections show firm yellow-white tissue throughout. A promotions representative section is all frozen on one irina. B. The specimen is received in formalin labeled "Nilaa Viraj, left breast tissue with axillary contents". Received is a 2483 g mastectomy specimen with attached axillary tail. The specimen measures 29.4 cm from medial to lateral, 24.1 cm from superior to inferior, and 9.2 cm from anterior to posterior. The anterior aspect of the specimen is covered by a large excision of skin measuring 33.4 x 26.3 cm. The nipple and areola complex are not grossly distinct. There is a large sotomayor-brown, friable, irregular in contour lesion present measuring 6.6 x 5.5 cm with an abscess cavity present measuring 5.5 x 1.0 cm which probes to a depth of 1.4 cm. The axillary tail measures 9.6 x 8.5 x 3.0 cm. The specimen is inked as follows: Superior/anterior blue, inferior/anterior-green, posterior-black. Sectioning reveals the abscess cavity to extend down into the breast measuring 4.5 x 3.0 x 2.0 cm in greatest dimensions. The abscess cavity is surrounded by white-ruano, firm tissue, and is 6.5 cm from the closest margin (posterior). The abscess cavity and firm tissue are located along the junction between the upper inner and lower inner quadrants. The remainder of the specimen is comprised of yellow-ruano fibrofatty breast tissue, with no grossly distinct nodules or lesions. Dissection and palpation of the axillary tail reveals 7 readily identifiable lymph nodes ranging in size from 0.8 to 5.2 cm in maximum dimensions. Sectioning through the largest lymph node reveals significant necrosis. The specimen is submitted representatively as follows: B1-B3 promotions representative sections of lesion and abscess cavity on the anterior aspect of specimen B4-B8 promotions representative sections of abscess cavity within the breast and adjacent white-ruano, firm tissue B9 upper inner quadrant B10 lower inner quadrant B11 lower outer quadrant B12 upper outer quadrant B13 one intact lymph node B14-B15 one bisected lymph node in each cassette B16-B19 one promotions representative section from each of the larger lymph nodes. C. The specimen is received in formalin labeled "Qing Walker, left axillary sampling closed ". Received are multiple segments of yellow-ruano lobulated tissue measuring 4.9 x 4.1 x 1.5 cm in greatest dimensions. Dissection and palpation of the specimen reveals 4 readily identifiable lymph nodes ranging in size from 0.5 to 1.1 cm in maximum dimensions. The lymph nodes are submitted as follows: C1 intact lymph nodes C2-C3 one bisected lymph node in each cassette. (CAA:BRONSON;csd; 08/26/2016) FROZEN SECTION DIAGNOSIS: (Patrick Owen M.D.) A. Left axillary sentinel node: - POORLY DIFFERENTIATED CARCINOMA. Findings relayed to Dr. Jose Luis at the time of the procedure. (SKM:; d/t: 08/25/16) Testing performed [place] [facility] [place] [address] INITIAL CPT CODE(S): A; 10104, 94624 B; 65772 Professional services [place] [address] Technical services performed by [facility] at [address] [place] [address], [address] [address]. SPECIMEN(S) RECEIVED: A.[place] lymph node, left B.Left breast tissue with axillary contents C.Left axillary sampling CLINICAL HISTORY: Left breast carcinoma; simple mastectomy PATIENT: QING MILES /AGE: 6 1945 (Age: 70) PATIENT #: [id number] ALT CASE #: SPECIMEN COLLECTION DATE: 08/25/2016 SPECIMEN RECEIVED DATE: 08/25/2016 [facility] - [address] [place] [address] - PHONE: [phone] * * * END OF REPORT * * *
--- NOTE | 2016-08-30 17:58 | DS ---
DATE OF DISCHARGE: 08/30/2016 ADMISSION DIAGNOSIS: Acute blood loss anemia and anemia of chronic renal disease. ASSOCIATED DIAGNOSES: Acute on chronic renal failure, breast abscess with breast cancer, now status post left mastectomy. HOSPITAL COURSE: This is a 70-year-old -[place] female who developed left breast abscess which grew group B strep. That was treated with antibiotics and in followup she still had a firm mass underneath there, very suspicious for malignancy. She was referred for mammogram and surgical involvement. Her abscess was opened and drained and pathology has now come back revealing that she has triple negative breast cancer. She was seen by Dr. Amaya in consultation by Dr. Lozano of Oncology, Dr. Avery of Radiation Oncology and Dr. Burns of Renal. She required 2 units of packed red blood cell transfusion for anemia. Her acute renal failure improved with hydration. She did complain of back and the right leg pain that was felt to be due to her underlying spinal stenosis and degenerative hip disease. She had a metastatic workup that was unremarkable. She went for left mastectomy, which was done without complications. She still has two drains ____ with minimal drainage. Her dressing is intact. Her incision is healing. She has not had any cardiac complications. No pulmonary complications. She did have some constipation that has now resolved. She is making urine and her urinary function is back to the baseline with a creatinine of 2.2. She has gotten some physical therapy, her hips improved. She is walking with the assistance of a walker. She is not thought to be a chemoradiation treatment patient due to her underlying chronic anemia and other comorbidities. Her most recent lab studies show hemoglobin of 8.3, up from admission of 7, white count is normal. Platelets are normal. Chemistry showed creatinine of 2.2 and BUN of 26, which is her baseline. Albumin is low at 2.4, but she is not having any edema or symptoms of malnutrition. Stool is negative for occult blood. MRSA screening was negative. Blood bank shows she is O positive. Imaging including CT of abdomen, pelvis and chest are unremarkable for metastatic disease. Bone scan was negative for osteoblastic metastatic disease. She is tolerating her diet. She is ____ with therapy. Her vitals are unremarkable. Blood pressure is controlled. DISCHARGE MEDICATIONS: Include Tylenol p.r.n., bisacodyl 5 mg tablet p.r.n. constipation, hydrocodone APAP 5/325 one q. 4 hours p.r.n. moderate to severe pain, 10 mg Dulcolax suppository p.r.n. constipation, atorvastatin 40 mg at bedtime, bupropion SR 150 b.i.d., vitamin D3 2000 units daily, loratadine 10 mg daily, losartan HCT 100/25 one daily. Aspirin is stopped, furosemide is stopped and metoprolol is stopped. She will follow up in the office in a week or two and with Surgery in a week or so and keep her routine renal followup. Oncology and Radiation Oncology are not planning any additional treatment. W Anthony STEVEN MD DR: JELLY/alexia JOB#: [id number] / [id number]
[2016-08-30 19:36] VITALS: BP 142/68
[2016-08-30] MEDS: ATORVASTATIN CALCIUM 40 MG TABLET. PO SCH (21:00)
[2016-08-30 22:16] VITALS: BP 133/76
[2016-08-30] MEDS: HYDROcodone/APAP 5/325MG 1 TAB TABLET PO PRN (22:44)
[2016-08-31 03:17] VITALS: BP 141/61
[2016-08-31 07:00] VITALS: BP 134/64
--- NOTE | 2016-08-31 09:03 | PDOC ---
Provider Note Provider Note Doing well post op. No complaints. Plan on DC this AM to home. Path revealed 6.6 cm primary lesion with focal invasion into skin. Margins clear. [address] Impression: Stage III A (T3 N2 M0) triple negative adenocarcinoma of left breast. Doing well post mastectomy. Not a candidate for adjuvant systemic treatment as assessed by Dr Lozano. At high risk for local-regional recurrence. I do recommend consideration of post op chest wall radiation. Discussed this with Aristeo Lozano and Jose Luis at tumor conference on 08/30/2016. They support this as well. I did discuss this with the patient this am. Kayla kerrycandace of insight appears to be limited but she is interested in pursuing radiation treatment. We will plan to see her in our department in one month. TYSON HUBER MD August 31, 2016 09:03
[2016-08-31 11:00] VITALS: BP 135/74
--- NOTE | 2016-08-31 12:07 | PDOC ---
Provider Note Provider Note SURG up to chair no new c/o home today (spoke with brush worker) with family member keep one drain f/u with me 09/05 ATIF CHING MD August 31, 2016 12:07
--- NOTE | 2016-08-31 12:20 | OP ---
DATE OF SURGERY: ADDENDUM The note was dictated on 08/27/2016. The date of surgery needs to be changed to 08/25/2016. ATIF CHING MD DR: CARIE/alexia JOB#: [id number] / [id number]
[2016-08-31] MEDS: ENOXAPARIN 30 MG/0.3 ML SYRINGE. SQ SCH (12:52)
[2016-08-31] MEDS: CHOLECALCIFEROL (VITAMIN D3) 1,000 UNIT TABLET PO SCH (12:52)
[2016-08-31] MEDS: hydroCHLOROthiazide 25 MG TABLET PO SCH (12:53)
[2016-08-31] MEDS: CETIRIZINE HCL 10 MG TABLET. PO SCH (12:53)
[2016-08-31] MEDS: LOSARTAN POTASSIUM 50 MG TABLET. PO SCH (12:53)
[2016-08-31] MEDS: buPROPion SR 150 MG TABLET.SA PO SCH ×2 (12:53→21:00)
--- NOTE | 2016-08-31 13:45 | PDOC ---
SUBJECTIVE ROS F/up CKD IV Doing OK OBJECTIVE Vital Signs Vital Signs Date Time Temp Pulse Resp B/P Pulse Ox O2 Delivery O2 Flow Rate FiO2 08/31/16 12:53 74 135/74 08/31/16 11:00 98.3 18 99 Room Air 98.3 08/30/16 08:00 2.0 I & 0 Intake and Output 08/31/16 07:00 Intake Total 560 ml Output Total 385 ml Balance 175 ml Intake Oral 560 ml Output Urine Total 200 ml Drainage Total 185 ml # Voids 5 # Bowel Movements 2 PHYSICAL EXAM Physical Exam General Appearance: Awake: Alert Oriented x 2-3 Neck: No JVD or JVP Chest: CTA Zak Heart: S1 S2 Abdomen - Soft NTND Extremities - No Edema DIAGNOSIS/ASSESSMENT Assessment & Plan CKD IV - stable creat at current levels COMMENT/RELEVANT DATA Meds Current Medications Medications (Trade) Dose Ordered Sig/Ezequiel Start Time Stop Time Status Last Admin Dose Admin Acetaminophen (Tylenol) 1,000 mg PRN Q4HRS PRN 08/23/16 01:00 08/25/16 00:42 1,000 MG Acetaminophen/ Hydrocodone Bitart (Lortab 5/325) 1 tab PRN Q4HRS PRN 08/25/16 12:00 08/30/16 22:44 1 TAB Atorvastatin Calcium (Lipitor) 40 mg QHS 08/22/16 21:00 08/30/16 21:00 40 MG Bisacodyl (Dulcolax Supp) 10 mg PRN DAILY PRN 08/26/16 09:30 Bisacodyl 5 mg 5 mg PRN DAILY PRN 08/26/16 09:30 08/26/16 19:58 5 MG Bupivacaine HCl/ Epinephrine Bitart (Sensorcain-Mpf Epi 0.5%-1:860430) 30 ml STK-MED ONCE 08/25/16 07:21 08/25/16 07:22 DC 08/25/16 10:50 1 ML Bupropion HCl (Wellbutrin Sr) 150 mg BID 08/22/16 21:00 08/31/16 12:53 150 MG Cefazolin Sodium (Ancef 1gm Ivpb For Omni) 50 ml @ 100 mls/hr 1X PREOP PRN 08/25/16 06:00 08/25/16 18:00 DC 08/25/16 10:06 100 MLS/HR Cetirizine HCl (Zyrtec) 10 mg DAILY 08/23/16 09:00 08/31/16 12:53 10 MG Dexamethasone Sodium Phosphate (Decadron) 20 mg STK-MED ONCE 08/25/16 10:02 08/25/16 10:03 DC Enoxaparin Sodium (Lovenox 30mg Syringe) 30 mg Q24H 08/25/16 12:00 08/31/16 12:52 30 MG Ephedrine Sulfate (Akovaz) 50 mg STK-MED ONCE 08/25/16 10:02 08/25/16 10:03 DC Fentanyl Citrate (Fentanyl 2ml Vial) 100 mcg STK-MED ONCE 08/25/16 10:50 08/25/16 10:51 DC Hydrochlorothiazide (Hydrodiuril) 25 mg DAILY 08/27/16 09:00 08/31/16 12:53 25 MG Hydromorphone HCl (Dilaudid) 1 mg PRN Q4HRS PRN 08/25/16 15:15 08/28/16 00:00 1 MG Info (Do NOT chart on this entry -- for MONITORING) 1 each PRN DAILY PRN 08/24/16 08:45 08/26/16 08:44 DC Iohexol (Omnipaque 240 Mg/ml) 30 ml 1X ONCE 08/24/16 08:45 08/24/16 08:46 DC 08/24/16 10:47 30 ML Isosulfan Blue 50 mg 50 mg STK-MED ONCE 08/25/16 07:22 08/25/16 07:23 DC 08/25/16 10:58 50 MG Lactated Ringer's (Iv Lactated Ringers) 1,000 ml @ 30 mls/hr Q24H 08/25/16 07:00 08/25/16 18:59 DC 08/25/16 09:00 30 MLS/HR Lidocaine HCl (Lidocaine HCl 2% Abboject) 100 mg STK-MED ONCE 08/25/16 08:09 08/25/16 08:10 DC Losartan Potassium (Cozaar) 100 mg DAILY 08/27/16 09:00 08/31/16 12:53 100 MG Metoprolol Tartrate (Lopressor) 25 mg BID 08/22/16 21:00 08/27/16 07:11 DC 08/26/16 19:58 25 MG Morphine Sulfate 1 mg 1 mg PRN Q10MIN PRN 08/25/16 07:00 08/25/16 18:00 DC Ondansetron HCl (Zofran) 4 mg STK-MED ONCE 08/25/16 10:40 08/25/16 10:41 DC Prochlorperazine Edisylate 5 mg 5 mg PACU PRN PRN 08/25/16 07:00 08/25/16 18:00 DC Propofol (Diprivan) 20 ml @ As Directed STK-MED ONCE 08/25/16 08:09 08/25/16 08:10 DC Sevoflurane (Ultane) 30 ml STK-MED ONCE 08/25/16 10:40 08/25/16 10:41 DC Sodium Chloride (Iv Sodium Chloride 0.9% 1000ml Bag) 1,000 ml @ 75 mls/hr [id number] 08/26/16 11:00 08/27/16 13:42 DC 08/26/16 19:58 75 MLS/HR Vitamin D (Vitamin D3) 2,000 unit DAILY 08/23/16 09:00 08/31/16 12:52 2,000 UNIT HAYDE RAMSAY MD August 31, 2016 13:45
--- NOTE | 2016-08-31 14:25 | PDOC ---
PROGRESS NOTES Subjective Subjective Her discharge yesterday was cancelled as arrangements not made. She has no furniture in her apartment due to bed bug treatment, her family member that she was to stay with had a in the family and cannot be present for care, her insurance will not cover SNU. Those social issues persist today still. She is not having any new medical issues. She has been informed that radiation to her chest wall would be beneficial as her chance of local recurrence is high and is agreeable Objective Objective Vital Signs Date Time Temp Pulse Resp B/P Pulse Ox O2 Delivery O2 Flow Rate FiO2 08/31/16 12:53 74 135/74 08/31/16 11:00 98.3 18 99 Room Air 98.3 08/30/16 08:00 2.0 Intake and Output 08/31/16 07:00 Intake Total 560 ml Output Total 385 ml Balance 175 ml Intake Oral 560 ml Output Urine Total 200 ml Drainage Total 185 ml # Voids 5 # Bowel Movements 2 Physical Exam Abdomen: Normal bowel sounds, Soft Heart: Regular rate Extremities: No clubbing, No cyanosis General: Alert, Cooperative HEENT: Atraumatic Lungs: Clear to auscultation Neuro: Normal speech Psych/Mental Status: Mental status NL Skin: No breakdown Assessment Assessment Problems Medical Problems: (1) Anemia Status: Acute (2) Breast cancer Status: Acute (3) Left breast abscess Status: Acute Plan Plan of [facility] with HH PT/OT/nursing when social situation allows, continue wound care and post op care and therapy Comment Review of Relevant I have reviewed the following items madison (where applicable) has been applied. Labs Microbiology 08/22/16 Urine Culture - Final, Complete 08/22/16 Urine Culture Result 1 (PAOLA) - Final, Complete Medications Current Medications Ondansetron HCl (Zofran) 4 mg PRN Q8HRS PRN IV NAUSEA/VOMITING; Start 08/22/16 at 13:45; Stop 08/23/16 at 13:44; Status DC Atorvastatin Calcium (Lipitor) 40 mg QHS PO Last administered on 08/30/16 21:00 ; Start 08/22/16 at 21:00 Bupropion HCl (Wellbutrin Sr) 150 mg BID PO Last administered on 08/31/16 12:53 ; Start 08/22/16 at 21:00 Metoprolol Tartrate (Lopressor) 25 mg BID PO Last administered on 08/26/16 19: 58; Start 08/22/16 at 21:00; Stop 08/27/16 at 07:11; Status DC Vitamin D (Vitamin D3) 2,000 unit DAILY PO Last administered on 08/31/16 12:52 ; Start 08/23/16 at 09:00 Cetirizine HCl (Zyrtec) 10 mg DAILY PO Last administered on 08/31/16 12:53; Start 08/23/16 at 09:00 Acetaminophen (Tylenol) 500 mg 1X ONCE PO Last administered on 08/22/16 17:53 ; Start 08/22/16 at 17:15; Stop 08/22/16 at 17:21; Status DC Acetaminophen (Tylenol) 500 mg PRN Q4HRS PRN PO MILD PAIN / TEMP Last administered on 08/24/16 14:00; Start 08/23/16 at 01:00 Acetaminophen (Tylenol) 1,000 mg PRN Q4HRS PRN PO MILD PAIN Last administered on 08/25/16 00:42; Start 08/23/16 at 01:00 Iohexol (Omnipaque 240 Mg/ml) 30 ml 1X ONCE PO Last administered on 08/24/16 10:47; Start 08/24/16 at 08:45; Stop 08/24/16 at 08:46; Status DC Info (Do NOT chart on this entry -- for MONITORING) 1 each PRN DAILY PRN MC SEE COMMENTS; Start 08/24/16 at 08:45; Stop 08/26/16 at 08:44; Status DC Ondansetron HCl (Zofran) 4 mg PRN Q6HRS PRN IV NAUSEA/VOMITING; Start 08/25/16 at 07:00; Stop 08/25/16 at 18:00; Status DC Fentanyl Citrate (Fentanyl 2ml Vial) 25 mcg PRN Q5MIN PRN IV MILD PAIN; Start 08/25/16 at 07:00; Stop 08/25/16 at 18:00; Status DC Fentanyl Citrate (Fentanyl 2ml Vial) 50 mcg PRN Q5MIN PRN IV MODERATE PAIN Last administered on 08/25/16 12:22; Start 08/25/16 at 07:00; Stop 08/25/16 at 18:00; Status DC Morphine Sulfate 1 mg 1 mg PRN Q10MIN PRN IV SEVERE PAIN; Start 08/25/16 at 07: 00; Stop 08/25/16 at 18:00; Status DC Lactated Ringer's (Iv Lactated Ringers) 1,000 ml @ 30 mls/hr Q24H IV Last administered on 08/25/16 09:00; Start 08/25/16 at 07:00; Stop 08/25/16 at 18:59 ; Status DC Lidocaine HCl 2 ml PRN 1X PRN ID PRIOR TO IV START; Start 08/25/16 at 07:00; Stop 08/25/16 at 18:00; Status DC Hydromorphone HCl (Dilaudid) 0.5 mg PRN Q10MIN PRN IV SEV PAIN, Second choice; Start 08/25/16 at 07:00; Stop 08/25/16 at 18:00; Status DC Prochlorperazine Edisylate 5 mg 5 mg PACU PRN PRN IV NAUSEA, MRX1; Start at 07:00; Stop 08/25/16 at 18:00; Status DC Cefazolin Sodium (Ancef 1gm Ivpb For Omni) 50 ml @ 100 mls/hr 1X PREOP PRN IV prohylaxis Last administered on 08/25/16 10:06; Start 08/25/16 at 06:00; Stop 08/25/16 at 18:00; Status DC Bupivacaine HCl/ Epinephrine Bitart (Sensorcain-Mpf Epi 0.5%-1:893438) 30 ml STK -MED ONCE .ROUTE Last administered on 08/25/16 10:50; Start 08/25/16 at 07:21 ; Stop 08/25/16 at 07:22; Status DC Isosulfan Blue 50 mg 50 mg STK-MED ONCE SQ Last administered on 08/25/16 10:58 ; Start 08/25/16 at 07:22; Stop 08/25/16 at 07:23; Status DC Propofol (Diprivan) 20 ml @ As Directed STK-MED ONCE IV ; Start 08/25/16 at 08: 09; Stop 08/25/16 at 08:10; Status DC Lidocaine HCl (Lidocaine HCl 2% Abboject) 100 mg STK-MED ONCE .ROUTE ; Start at 08:09; Stop 08/25/16 at 08:10; Status DC Fentanyl Citrate (Fentanyl 2ml Vial) 100 mcg STK-MED ONCE .ROUTE ; Start at 08:09; Stop 08/25/16 at 08:10; Status DC Dexamethasone Sodium Phosphate (Decadron) 20 mg STK-MED ONCE .ROUTE ; Start at 10:02; Stop 08/25/16 at 10:03; Status DC Ephedrine Sulfate (Akovaz) 50 mg STK-MED ONCE .ROUTE ; Start 08/25/16 at 10:02; Stop 08/25/16 at 10:03; Status DC Ondansetron HCl (Zofran) 4 mg STK-MED ONCE .ROUTE ; Start 08/25/16 at 10:40; Stop 08/25/16 at 10:41; Status DC Sevoflurane (Ultane) 30 ml STK-MED ONCE IH ; Start 08/25/16 at 10:40; Stop 08/25 at 10:41; Status DC Fentanyl Citrate (Fentanyl 2ml Vial) 100 mcg STK-MED ONCE .ROUTE ; Start at 10:50; Stop 08/25/16 at 10:51; Status DC Acetaminophen/ Hydrocodone Bitart (Lortab 5/325) 1 tab PRN Q4HRS PRN PO MODERATE - SEVERE PAIN Last administered on 08/30/16 22:44; Start 08/25/16 at 12 :00 Enoxaparin Sodium (Lovenox 30mg Syringe) 30 mg Q24H SQ Last administered on 08/31 12:52; Start 08/25/16 at 12:00 Hydromorphone HCl (Dilaudid) 1 mg PRN Q4HRS PRN IV PAIN Last administered on 00:00; Start 08/25/16 at 15:15 Bisacodyl (Dulcolax Supp) 10 mg PRN DAILY PRN DC CONSTIPATION; Start 08/26/16 at 09:30 Bisacodyl 5 mg 5 mg PRN DAILY PRN PO CONSTIPATION Last administered on 19:58; Start 08/26/16 at 09:30 Sodium Chloride (Iv Sodium Chloride 0.9% 1000ml Bag) 1,000 ml @ 75 mls/hr [id number] IV Last administered on 08/26/16 19:58; Start 08/26/16 at 11:00; Stop 08/27/16 at 13:42; Status DC Losartan Potassium (Cozaar) 100 mg DAILY PO Last administered on 08/31/16 12:53 ; Start 08/27/16 at 09:00 Hydrochlorothiazide (Hydrodiuril) 25 mg DAILY PO Last administered on 08/31/16 12:53; Start 08/27/16 at 09:00 Active Scripts Active Reported Loratadine 10 Mg Tablet 1 Tab PO DAILY Atorvastatin Calcium 40 Mg Tablet 1 Tab PO QHS Metoprolol Tartrate 25 Mg Tablet 1 Tab PO BID Losartan-Hctz 100-25 Mg Tab (Losartan/Hydrochlorothiazide) 1 Each Tablet 1 Tab PO DAILY Furosemide 40 Mg Tablet 1 Tab PO DAILY Aspirin 81 Mg Tab.chew 1 Tab PO DAILY Vitamin D (Cholecalciferol (Vitamin D3)) 2,000 Unit Capsule 1 Cap PO DAILY Wellbutrin Sr (Bupropion Hcl) 150 Mg Tablet.er 1 Tab PO BID Vitals/I & O Vital Sign - Last 24 Hours 08/30/16 08/30/16 08/30/16 08/30/16 15:00 19:36 20:00 22:16 Temp 97.3 97.5 98.5 97.3 97.5 98.5 Pulse 61 80 78 Resp 18 18 18 B/P 134/72 142/68 133/76 Pulse Ox 100 100 100 O2 Delivery Room Air Room Air Room Air Room Air 08/30/16 08/30/16 08/31/16 08/31/16 22:44 23:44 03:17 07:00 Temp 98.4 97.8 98.4 97.8 Pulse 69 63 Resp 18 18 B/P 141/61 134/64 Pulse Ox 99 94 O2 Delivery Room Air Room Air Room Air Room Air 08/31/16 08/31/16 11:00 12:53 Temp 98.3 98.3 Pulse 74 74 Resp 18 B/P 135/74 135/74 Pulse Ox 99 O2 Delivery Room Air Intake and Output 08/30/16 08/30/16 08/31/16 15:00 23:00 07:00 Intake Total 360 ml 200 ml Output Total 185 ml 200 ml Balance 360 ml 15 ml -200 ml TENISHA,MICHI R MD August 31, 2016 14:25
[2016-08-31 19:55] VITALS: BP 150/88
[2016-08-31] MEDS: ATORVASTATIN CALCIUM 40 MG TABLET. PO SCH (21:00)
[2016-08-31 22:26] VITALS: BP 107/72
[2016-09-01 02:14] VITALS: BP 108/72
[2016-09-01] MEDS: HYDROcodone/APAP 5/325MG 1 TAB TABLET PO PRN (04:00)
[2016-09-01 07:00] VITALS: BP 112/73
--- NOTE | 2016-09-01 08:58 | PDOC ---
PROGRESS NOTES Subjective Subjective Ms. Cali was seen in her room this morning seated in the recliner after eating breakfast. She was in NAD and no acute overnight events were reported. She was unaware if any progress had been made in getting furniture into her home. She stated that she was tolerating her diet, without pain, was ambulating , having BMs, and urinating without difficulty. One of her two drains came out on its own last night. Objective Objective Vital Signs Date Time Temp Pulse Resp B/P (MAP) Pulse Ox O2 Delivery O2 Flow Rate FiO2 09/01/16 07:00 97.6 76 18 112/73 (86) 100 Room Air 97.6 08/31/16 08:00 2.0 Intake and Output 09/01/16 07:00 Intake Total 600 ml Output Total 300 ml Balance 300 ml Intake Oral 600 ml Output Urine Total 300 ml # Voids 4 Physical Exam Abdomen: Normal bowel sounds, Soft General: Alert, Oriented X3, Cooperative, No acute distress HEENT: Atraumatic Neck: Supple, No JVD Neuro: Normal speech Psych/Mental Status: Mental status NL, Mood NL Skin: No rashes, No breakdown Assessment Assessment Problems Medical Problems: (1) Anemia Status: Acute (2) Breast cancer Status: Acute Stage IIIA (T:3 N:2 M:0) Triple Neg adenocarcinoma (3) Left breast abscess Status: Acute Plan Plan of Care Discontinue hydromorphone Medically ready for discharge. Discharge to home when social issues are resolved. Comment Review of Relevant I have reviewed the following items mad[place] (where applicable) has been applied. Labs Microbiology 08/22/16 Urine Culture - Final, Complete 08/22/16 Urine Culture Result 1 (PAOLA) - Final, Complete Medications Current Medications Ondansetron HCl (Zofran) 4 mg PRN Q8HRS PRN IV NAUSEA/VOMITING; Start 08/22/16 at 13:45; Stop 08/23/16 at 13:44; Status DC Atorvastatin Calcium (Lipitor) 40 mg QHS PO Last administered on 08/31/16 21:00 ; Start 08/22/16 at 21:00 Bupropion HCl (Wellbutrin Sr) 150 mg BID PO Last administered on 08/31/16 21:00 ; Start 08/22/16 at 21:00 Metoprolol Tartrate (Lopressor) 25 mg BID PO Last administered on 08/26/16 19: 58; Start 08/22/16 at 21:00; Stop 08/27/16 at 07:11; Status DC Vitamin D (Vitamin D3) 2,000 unit DAILY PO Last administered on 08/31/16 12:52 ; Start 08/23/16 at 09:00 Cetirizine HCl (Zyrtec) 10 mg DAILY PO Last administered on 08/31/16 12:53; Start 08/23/16 at 09:00 Acetaminophen (Tylenol) 500 mg 1X ONCE PO Last administered on 08/22/16 17:53 ; Start 08/22/16 at 17:15; Stop 08/22/16 at 17:21; Status DC Acetaminophen (Tylenol) 500 mg PRN Q4HRS PRN PO MILD PAIN / TEMP Last administered on 08/24/16 14:00; Start 08/23/16 at 01:00 Acetaminophen (Tylenol) 1,000 mg PRN Q4HRS PRN PO MILD PAIN Last administered on 08/25/16 00:42; Start 08/23/16 at 01:00 Iohexol (Omnipaque 240 Mg/ml) 30 ml 1X ONCE PO Last administered on 08/24/16 10:47; Start 08/24/16 at 08:45; Stop 08/24/16 at 08:46; Status DC Info (Do NOT chart on this entry -- for MONITORING) 1 each PRN DAILY PRN MC SEE COMMENTS; Start 08/24/16 at 08:45; Stop 08/26/16 at 08:44; Status DC Ondansetron HCl (Zofran) 4 mg PRN Q6HRS PRN IV NAUSEA/VOMITING; Start 08/25/16 at 07:00; Stop 08/25/16 at 18:00; Status DC Fentanyl Citrate (Fentanyl 2ml Vial) 25 mcg PRN Q5MIN PRN IV MILD PAIN; Start 08/25/16 at 07:00; Stop 08/25/16 at 18:00; Status DC Fentanyl Citrate (Fentanyl 2ml Vial) 50 mcg PRN Q5MIN PRN IV MODERATE PAIN Last administered on 08/25/16 12:22; Start 08/25/16 at 07:00; Stop 08/25/16 at 18:00; Status DC Morphine Sulfate 1 mg PRN Q10MIN PRN IV SEVERE PAIN; Start 08/25/16 at 07:00; Stop 08/25/16 at 18:00; Status DC Lactated Ringer's 1,000 ml @ 30 mls/hr Q24H IV Last administered on 08/25/16 09:00; Start 08/25/16 at 07:00; Stop 08/25/16 at 18:59; Status DC Lidocaine HCl 2 ml PRN 1X PRN ID PRIOR TO IV START; Start 08/25/16 at 07:00; Stop 08/25/16 at 18:00; Status DC Hydromorphone HCl (Dilaudid) 0.5 mg PRN Q10MIN PRN IV SEV PAIN, Second choice; Start 08/25/16 at 07:00; Stop 08/25/16 at 18:00; Status DC Prochlorperazine Edisylate (Compazine) 5 mg PACU PRN PRN IV NAUSEA, MRX1; Start 08/25/16 at 07:00; Stop 08/25/16 at 18:00; Status DC Cefazolin Sodium 50 ml @ 100 mls/hr 1X PREOP PRN IV prohylaxis Last administered on 08/25/16 10:06; Start 08/25/16 at 06:00; Stop 08/25/16 at 18:00 ; Status DC Bupivacaine HCl/ Epinephrine Bitart (Sensorcain-Mpf Epi 0.5%-1:167237) 30 ml STK -MED ONCE .ROUTE Last administered on 08/25/16 10:50; Start 08/25/16 at 07:21 ; Stop 08/25/16 at 07:22; Status DC Isosulfan Blue (Isosulfan Blue) 50 mg STK-MED ONCE SQ Last administered on 08/25 10:58; Start 08/25/16 at 07:22; Stop 08/25/16 at 07:23; Status DC Propofol 20 ml @ As Directed STK-MED ONCE IV ; Start 08/25/16 at 08:09; Stop at 08:10; Status DC Lidocaine HCl (Lidocaine HCl 2% Abboject) 100 mg STK-MED ONCE .ROUTE ; Start at 08:09; Stop 08/25/16 at 08:10; Status DC Fentanyl Citrate (Fentanyl 2ml Vial) 100 mcg STK-MED ONCE .ROUTE ; Start at 08:09; Stop 08/25/16 at 08:10; Status DC Dexamethasone Sodium Phosphate (Decadron) 20 mg STK-MED ONCE .ROUTE ; Start at 10:02; Stop 08/25/16 at 10:03; Status DC Ephedrine Sulfate (Akovaz) 50 mg STK-MED ONCE .ROUTE ; Start 08/25/16 at 10:02; Stop 08/25/16 at 10:03; Status DC Ondansetron HCl (Zofran) 4 mg STK-MED ONCE .ROUTE ; Start 08/25/16 at 10:40; Stop 08/25/16 at 10:41; Status DC Sevoflurane (Ultane) 30 ml STK-MED ONCE IH ; Start 08/25/16 at 10:40; Stop 08/25 at 10:41; Status DC Fentanyl Citrate (Fentanyl 2ml Vial) 100 mcg STK-MED ONCE .ROUTE ; Start at 10:50; Stop 08/25/16 at 10:51; Status DC Acetaminophen/ Hydrocodone Bitart (Lortab 5/325) 1 tab PRN Q4HRS PRN PO MODERATE - SEVERE PAIN Last administered on 08/30/16 22:44; Start 08/25/16 at 12 :00 Enoxaparin Sodium (Lovenox 30mg Syringe) 30 mg Q24H SQ Last administered on 08/31 12:52; Start 08/25/16 at 12:00 Hydromorphone HCl (Dilaudid) 1 mg PRN Q4HRS PRN IV PAIN Last administered on 00:00; Start 08/25/16 at 15:15 Bisacodyl (Dulcolax Supp) 10 mg PRN DAILY PRN MI CONSTIPATION; Start 08/26/16 at 09:30 Bisacodyl (Dulcolax Tab) 5 mg PRN DAILY PRN PO CONSTIPATION Last administered on 08/26/16 19:58; Start 08/26/16 at 09:30 Sodium Chloride 1,000 ml @ 75 mls/hr [id number] IV Last administered on 19:58; Start 08/26/16 at 11:00; Stop 08/27/16 at 13:42; Status DC Losartan Potassium (Cozaar) 100 mg DAILY PO Last administered on 08/31/16 12:53 ; Start 08/27/16 at 09:00 Hydrochlorothiazide (Hydrodiuril) 25 mg DAILY PO Last administered on 08/31/16 12:53; Start 08/27/16 at 09:00 Active Scripts Active Reported Loratadine 10 Mg Tablet 1 Tab PO DAILY Atorvastatin Calcium 40 Mg Tablet 1 Tab PO QHS Metoprolol Tartrate 25 Mg Tablet 1 Tab PO BID Losartan-Hctz 100-25 Mg Tab (Losartan/Hydrochlorothiazide) 1 Each Tablet 1 Tab PO DAILY Furosemide 40 Mg Tablet 1 Tab PO DAILY Aspirin 81 Mg Tab.chew 1 Tab PO DAILY Vitamin D (Cholecalciferol (Vitamin D3)) 2,000 Unit Capsule 1 Cap PO DAILY Wellbutrin Sr (Bupropion Hcl) 150 Mg Tablet.er 1 Tab PO BID Vitals/I & O Vital Sign - Last 24 Hours 08/31/16 08/31/16 08/31/16 08/31/16 11:00 12:53 19:55 20:00 Temp 98.3 98.4 98.3 98.4 Pulse 74 74 83 Resp 18 18 B/P (MAP) 135/74 (94) 135/74 150/88 (108) Pulse Ox 99 99 O2 Delivery Room Air Room Air Room Air 08/31/16 09/01/16 09/01/16 22:26 02:14 07:00 Temp 98.6 98.6 97.6 98.6 98.6 97.6 Pulse 75 84 76 Resp 18 18 18 B/P (MAP) 107/72 (84) 108/72 (84) 112/73 (86) Pulse Ox 100 100 100 O2 Delivery Room Air Nasal Cannula Room Air Intake and Output 08/31/16 08/31/16 09/01/16 15:00 23:00 07:00 Intake Total 600 ml Output Total 300 ml Balance 600 ml -300 ml MICHI STEVEN MD September 01, 2016 08:58
[2016-09-01] MEDS: LOSARTAN POTASSIUM 50 MG TABLET. PO SCH (09:09)
[2016-09-01] MEDS: hydroCHLOROthiazide 25 MG TABLET PO SCH (09:09)
[2016-09-01] MEDS: buPROPion SR 150 MG TABLET.SA PO SCH ×2 (09:09→20:21)
[2016-09-01] MEDS: CETIRIZINE HCL 10 MG TABLET. PO SCH (09:09)
[2016-09-01] MEDS: CHOLECALCIFEROL (VITAMIN D3) 1,000 UNIT TABLET PO SCH (09:10)
--- NOTE | 2016-09-01 09:35 | PDOC ---
SURGICAL PROGRESS NOTE Subjective tolerating diet did not discharge due to family , currently working on furniture in her home due to bug infestation Vital Signs Vital Signs Date Time Temp Pulse Resp B/P (MAP) Pulse Ox O2 Delivery O2 Flow Rate FiO2 09/01/16 09:09 76 112/73 09/01/16 08:00 Room Air 09/01/16 07:00 97.6 18 100 97.6 08/31/16 08:00 2.0 I&O Intake and Output 09/01/16 07:00 Intake Total 600 ml Output Total 300 ml Balance 300 ml Intake Oral 600 ml Output Urine Total 300 ml # Voids 4 General: Alert, Oriented X3, Cooperative, No acute distress Skin: Other (breast incision c/d/i, no erythema, serosang drainage from randy) Problem List Problems Medical Problems: (1) Anemia Status: Acute (2) Breast cancer Status: Acute (3) Left breast abscess Status: Acute Assessment/Plan s/p mastectomy continue drain DC planning Problems: SHELLIE MATA APRN September 01, 2016 09:35
[2016-09-01 11:00] VITALS: BP 108/54
[2016-09-01] MEDS: ENOXAPARIN 30 MG/0.3 ML SYRINGE. SQ SCH (11:40)
[2016-09-01 15:00] VITALS: BP 115/69
[2016-09-01 19:00] VITALS: BP_SYST 107; BP_SYST 113; BP_DIAS 47; BP_DIAS 59
[2016-09-01] MEDS: ATORVASTATIN CALCIUM 40 MG TABLET. PO SCH (20:21)
[2016-09-01 23:00] VITALS: BP 107/58
[2016-09-02] VITALS (7 sets, daily range): BP systolic 109–119; BP diastolic 59–70
[2016-09-02] MEDS: HYDROcodone/APAP 5/325MG 1 TAB TABLET PO PRN ×2 (04:39→21:32)
[2016-09-02] MEDS: buPROPion SR 150 MG TABLET.SA PO SCH ×2 (08:30→20:30)
[2016-09-02] MEDS: CETIRIZINE HCL 10 MG TABLET. PO SCH (08:30)
[2016-09-02] MEDS: hydroCHLOROthiazide 25 MG TABLET PO SCH (08:30)
[2016-09-02] MEDS: CHOLECALCIFEROL (VITAMIN D3) 1,000 UNIT TABLET PO SCH (08:30)
[2016-09-02] MEDS: LOSARTAN POTASSIUM 50 MG TABLET. PO SCH (08:31)
--- NOTE | 2016-09-02 10:42 | PDOC ---
SURGICAL PROGRESS NOTE Subjective no complaints Vital Signs Vital Signs Date Time Temp Pulse Resp B/P (MAP) Pulse Ox O2 Delivery O2 Flow Rate FiO2 09/02/16 08:31 58 112/60 09/02/16 08:00 Room Air 09/02/16 07:00 97.8 18 99 97.8 09/01/16 10:04 2.0 I&O Intake and Output 09/02/16 07:00 Intake Total 650 ml Output Total 560 ml Balance 90 ml Intake Oral 650 ml Output Urine Total 400 ml Drainage Total 160 ml General: Alert, Oriented X3, Cooperative, No acute distress Skin: Other (left breast incision c/d/i, no erythema, drain serosang ) Problem List Problems Medical Problems: (1) Anemia Status: Acute (2) Breast cancer Status: Acute (3) Left breast abscess Status: Acute Assessment/Plan s/p mastectomy continue drain dc planning, awaiting home situation will FU on monday Problems: SHELLIE MATA APRN September 02, 2016 10:42
--- NOTE | 2016-09-02 10:55 | PDOC ---
SUBJECTIVE ROS CKD IV Doing same overall OBJECTIVE Vital Signs Vital Signs Date Time Temp Pulse Resp B/P (MAP) Pulse Ox O2 Delivery O2 Flow Rate FiO2 09/02/16 08:31 58 112/60 09/02/16 08:00 Room Air 09/02/16 07:00 97.8 18 99 97.8 09/01/16 10:04 2.0 I & 0 Intake and Output 09/02/16 07:00 Intake Total 650 ml Output Total 560 ml Balance 90 ml Intake Oral 650 ml Output Urine Total 400 ml Drainage Total 160 ml PHYSICAL EXAM Physical Exam General Appearance: Awake: Alert Oriented x 2-3 Neck: No JVD or JVP Chest: CTA Zak Heart: S1 S2 Abdomen - Soft NTND Extremities - No Edema DIAGNOSIS/ASSESSMENT Assessment & Plan CKD IV - stable creat at current levels COMMENT/RELEVANT DATA Meds Current Medications Medications (Trade) Dose Ordered Sig/Ezequiel Start Time Stop Time Status Last Admin Dose Admin Acetaminophen (Tylenol) 1,000 mg PRN Q4HRS PRN 08/23/16 01:00 08/25/16 00:42 1,000 MG Acetaminophen/ Hydrocodone Bitart (Lortab 5/325) 1 tab PRN Q4HRS PRN 08/25/16 12:00 09/02/16 04:39 1 TAB Atorvastatin Calcium (Lipitor) 40 mg QHS 08/22/16 21:00 09/01/16 20:21 40 MG Bisacodyl (Dulcolax Supp) 10 mg PRN DAILY PRN 08/26/16 09:30 Bisacodyl (Dulcolax Tab) 5 mg PRN DAILY PRN 08/26/16 09:30 08/26/16 19:58 5 MG Bupivacaine HCl/ Epinephrine Bitart (Sensorcain-Mpf Epi 0.5%-1:100562) 30 ml STK-MED ONCE 08/25/16 07:21 08/25/16 07:22 DC 08/25/16 10:50 1 ML Bupropion HCl (Wellbutrin Sr) 150 mg BID 08/22/16 21:00 09/02/16 08:30 150 MG Cefazolin Sodium 50 ml @ 100 mls/hr 1X PREOP PRN 08/25/16 06:00 08/25/16 18:00 DC 08/25/16 10:06 100 MLS/HR Cetirizine HCl (Zyrtec) 10 mg DAILY 08/23/16 09:00 09/02/16 08:30 10 MG Dexamethasone Sodium Phosphate (Decadron) 20 mg STK-MED ONCE 08/25/16 10:02 08/25/16 10:03 DC Enoxaparin Sodium (Lovenox 30mg Syringe) 30 mg Q24H 08/25/16 12:00 09/01/16 11:40 30 MG Ephedrine Sulfate (Akovaz) 50 mg STK-MED ONCE 08/25/16 10:02 08/25/16 10:03 DC Fentanyl Citrate (Fentanyl 2ml Vial) 100 mcg STK-MED ONCE 08/25/16 10:50 08/25/16 10:51 DC Hydrochlorothiazide (Hydrodiuril) 25 mg DAILY 08/27/16 09:00 09/02/16 08:30 25 MG Hydromorphone HCl (Dilaudid) 1 mg PRN Q4HRS PRN 08/25/16 15:15 09/01/16 08:56 DC 08/28/16 00:00 1 MG Info (Do NOT chart on this entry -- for MONITORING) 1 each PRN DAILY PRN 08/24/16 08:45 08/26/16 08:44 DC Iohexol (Omnipaque 240 Mg/ml) 30 ml 1X ONCE 08/24/16 08:45 08/24/16 08:46 DC 08/24/16 10:47 30 ML Isosulfan Blue (Isosulfan Blue) 50 mg STK-MED ONCE 08/25/16 07:22 08/25/16 07:23 DC 08/25/16 10:58 50 MG Lactated Ringer's 1,000 ml @ 30 mls/hr Q24H 08/25/16 07:00 08/25/16 18:59 DC 08/25/16 09:00 30 MLS/HR Lidocaine HCl (Lidocaine HCl 2% Abboject) 100 mg STK-MED ONCE 08/25/16 08:09 08/25/16 08:10 DC Losartan Potassium (Cozaar) 100 mg DAILY 08/27/16 09:00 09/02/16 08:31 100 MG Metoprolol Tartrate (Lopressor) 25 mg BID 08/22/16 21:00 08/27/16 07:11 DC 08/26/16 19:58 25 MG Morphine Sulfate 1 mg PRN Q10MIN PRN 08/25/16 07:00 08/25/16 18:00 DC Ondansetron HCl (Zofran) 4 mg STK-MED ONCE 08/25/16 10:40 08/25/16 10:41 DC Prochlorperazine Edisylate (Compazine) 5 mg PACU PRN PRN 08/25/16 07:00 08/25/16 18:00 DC Propofol 20 ml @ As Directed STK-MED ONCE 08/25/16 08:09 08/25/16 08:10 DC Sevoflurane (Ultane) 30 ml STK-MED ONCE 08/25/16 10:40 08/25/16 10:41 DC Sodium Chloride 1,000 ml @ 75 mls/hr [id number] 08/26/16 11:00 08/27/16 13:42 DC 08/26/16 19:58 75 MLS/HR Vitamin D (Vitamin D3) 2,000 unit DAILY 08/23/16 09:00 09/02/16 08:30 2,000 UNIT HAYDE RAMSAY MD September 02, 2016 10:55
[2016-09-02] MEDS: ENOXAPARIN 30 MG/0.3 ML SYRINGE. SQ SCH (11:55)
--- NOTE | 2016-09-02 12:39 | PDOC ---
PROGRESS NOTES Subjective Subjective No changes, social issues persist as no furniture yet at apartment due to bedbugs. She requests her toenails be trimmed Objective Objective Vital Signs Date Time Temp Pulse Resp B/P (MAP) Pulse Ox O2 Delivery O2 Flow Rate FiO2 09/02/16 11:00 97.1 68 18 117/61 (79) 97 Room Air 97.1 09/01/16 10:04 2.0 Intake and Output 09/02/16 06:59 Intake Total 650 ml Output Total 560 ml Balance 90 ml Intake Oral 650 ml Output Urine Total 400 ml Drainage Total 160 ml Physical Exam Abdomen: Normal bowel sounds, Soft Heart: Regular rate Extremities: No clubbing, No cyanosis General: Alert, Oriented X3, Cooperative HEENT: Atraumatic Lungs: Clear to auscultation Neck: Supple Neuro: Normal speech Psych/Mental Status: Mental status NL Skin: No breakdown Assessment Assessment Problems Medical Problems: (1) Anemia Status: Acute (2) Breast cancer Status: Acute (3) Left breast abscess Status: Acute Plan Plan of Care awaiting disposition, drain out Monday Comment Review of Relevant I have reviewed the following items [place] (where applicable) has been applied. Labs Microbiology 08/22/16 Urine Culture - Final, Complete 08/22/16 Urine Culture Result 1 (PAOLA) - Final, Complete Medications Current Medications Ondansetron HCl (Zofran) 4 mg PRN Q8HRS PRN IV NAUSEA/VOMITING; Start 08/22/16 at 13:45; Stop 08/23/16 at 13:44; Status DC Atorvastatin Calcium (Lipitor) 40 mg QHS PO Last administered on 09/01/16 20:21 ; Start 08/22/16 at 21:00 Bupropion HCl (Wellbutrin Sr) 150 mg BID PO Last administered on 09/02/16 08:30 ; Start 08/22/16 at 21:00 Metoprolol Tartrate (Lopressor) 25 mg BID PO Last administered on 08/26/16 19: 58; Start 08/22/16 at 21:00; Stop 08/27/16 at 07:11; Status DC Vitamin D (Vitamin D3) 2,000 unit DAILY PO Last administered on 09/02/16 08:30 ; Start 08/23/16 at 09:00 Cetirizine HCl (Zyrtec) 10 mg DAILY PO Last administered on 09/02/16 08:30; Start 08/23/16 at 09:00 Acetaminophen (Tylenol) 500 mg 1X ONCE PO Last administered on 08/22/16 17:53 ; Start 08/22/16 at 17:15; Stop 08/22/16 at 17:21; Status DC Acetaminophen (Tylenol) 500 mg PRN Q4HRS PRN PO MILD PAIN / TEMP Last administered on 08/24/16 14:00; Start 08/23/16 at 01:00 Acetaminophen (Tylenol) 1,000 mg PRN Q4HRS PRN PO MILD PAIN Last administered on 08/25/16 00:42; Start 08/23/16 at 01:00 Iohexol (Omnipaque 240 Mg/ml) 30 ml 1X ONCE PO Last administered on 08/24/16 10:47; Start 08/24/16 at 08:45; Stop 08/24/16 at 08:46; Status DC Info (Do NOT chart on this entry -- for MONITORING) 1 each PRN DAILY PRN MC SEE COMMENTS; Start 08/24/16 at 08:45; Stop 08/26/16 at 08:44; Status DC Ondansetron HCl (Zofran) 4 mg PRN Q6HRS PRN IV NAUSEA/VOMITING; Start 08/25/16 at 07:00; Stop 08/25/16 at 18:00; Status DC Fentanyl Citrate (Fentanyl 2ml Vial) 25 mcg PRN Q5MIN PRN IV MILD PAIN; Start 08/25/16 at 07:00; Stop 08/25/16 at 18:00; Status DC Fentanyl Citrate (Fentanyl 2ml Vial) 50 mcg PRN Q5MIN PRN IV MODERATE PAIN Last administered on 08/25/16 12:22; Start 08/25/16 at 07:00; Stop 08/25/16 at 18:00; Status DC Morphine Sulfate 1 mg PRN Q10MIN PRN IV SEVERE PAIN; Start 08/25/16 at 07:00; Stop 08/25/16 at 18:00; Status DC Lactated Ringer's 1,000 ml @ 30 mls/hr Q24H IV Last administered on 08/25/16 09:00; Start 08/25/16 at 07:00; Stop 08/25/16 at 18:59; Status DC Lidocaine HCl 2 ml PRN 1X PRN ID PRIOR TO IV START; Start 08/25/16 at 07:00; Stop 08/25/16 at 18:00; Status DC Hydromorphone HCl (Dilaudid) 0.5 mg PRN Q10MIN PRN IV SEV PAIN, Second choice; Start 08/25/16 at 07:00; Stop 08/25/16 at 18:00; Status DC Prochlorperazine Edisylate (Compazine) 5 mg PACU PRN PRN IV NAUSEA, MRX1; Start 08/25/16 at 07:00; Stop 08/25/16 at 18:00; Status DC Cefazolin Sodium 50 ml @ 100 mls/hr 1X PREOP PRN IV prohylaxis Last administered on 08/25/16 10:06; Start 08/25/16 at 06:00; Stop 08/25/16 at 18:00 ; Status DC Bupivacaine HCl/ Epinephrine Bitart (Sensorcain-Mpf Epi 0.5%-1:642245) 30 ml STK -MED ONCE .ROUTE Last administered on 08/25/16 10:50; Start 08/25/16 at 07:21 ; Stop 08/25/16 at 07:22; Status DC Isosulfan Blue (Isosulfan Blue) 50 mg STK-MED ONCE SQ Last administered on 08/25 10:58; Start 08/25/16 at 07:22; Stop 08/25/16 at 07:23; Status DC Propofol 20 ml @ As Directed STK-MED ONCE IV ; Start 08/25/16 at 08:09; Stop at 08:10; Status DC Lidocaine HCl (Lidocaine HCl 2% Abboject) 100 mg STK-MED ONCE .ROUTE ; Start at 08:09; Stop 08/25/16 at 08:10; Status DC Fentanyl Citrate (Fentanyl 2ml Vial) 100 mcg STK-MED ONCE .ROUTE ; Start at 08:09; Stop 08/25/16 at 08:10; Status DC Dexamethasone Sodium Phosphate (Decadron) 20 mg STK-MED ONCE .ROUTE ; Start at 10:02; Stop 08/25/16 at 10:03; Status DC Ephedrine Sulfate (Akovaz) 50 mg STK-MED ONCE .ROUTE ; Start 08/25/16 at 10:02; Stop 08/25/16 at 10:03; Status DC Ondansetron HCl (Zofran) 4 mg STK-MED ONCE .ROUTE ; Start 08/25/16 at 10:40; Stop 08/25/16 at 10:41; Status DC Sevoflurane (Ultane) 30 ml STK-MED ONCE IH ; Start 08/25/16 at 10:40; Stop 08/25 at 10:41; Status DC Fentanyl Citrate (Fentanyl 2ml Vial) 100 mcg STK-MED ONCE .ROUTE ; Start at 10:50; Stop 08/25/16 at 10:51; Status DC Acetaminophen/ Hydrocodone Bitart (Lortab 5/325) 1 tab PRN Q4HRS PRN PO MODERATE - SEVERE PAIN Last administered on 09/02/16 04:39; Start 08/25/16 at 12 :00 Enoxaparin Sodium (Lovenox 30mg Syringe) 30 mg Q24H SQ Last administered on 09/02 11:55; Start 08/25/16 at 12:00 Hydromorphone HCl (Dilaudid) 1 mg PRN Q4HRS PRN IV PAIN Last administered on 00:00; Start 08/25/16 at 15:15; Stop 09/01/16 at 08:56; Status DC Bisacodyl (Dulcolax Supp) 10 mg PRN DAILY PRN [place] CONSTIPATION; Start 08/26/16 at 09:30 Bisacodyl (Dulcolax Tab) 5 mg PRN DAILY PRN PO CONSTIPATION Last administered on 08/26/16 19:58; Start 08/26/16 at 09:30 Sodium Chloride 1,000 ml @ 75 mls/hr [id number] IV Last administered on 19:58; Start 08/26/16 at 11:00; Stop 08/27/16 at 13:42; Status DC Losartan Potassium (Cozaar) 100 mg DAILY PO Last administered on 09/02/16 08:31 ; Start 08/27/16 at 09:00 Hydrochlorothiazide (Hydrodiuril) 25 mg DAILY PO Last administered on 09/02/16t 08:30; Start 08/27/16 at 09:00 Active Scripts Active Reported Loratadine 10 Mg Tablet 1 Tab PO DAILY Atorvastatin Calcium 40 Mg Tablet 1 Tab PO QHS Metoprolol Tartrate 25 Mg Tablet 1 Tab PO BID Losartan-Hctz 100-25 Mg Tab (Losartan/Hydrochlorothiazide) 1 Each Tablet 1 Tab PO DAILY Furosemide 40 Mg Tablet 1 Tab PO DAILY Aspirin 81 Mg Tab.chew 1 Tab PO DAILY Vitamin D (Cholecalciferol (Vitamin D3)) 2,000 Unit Capsule 1 Cap PO DAILY Wellbutrin Sr (Bupropion Hcl) 150 Mg Tablet.er 1 Tab PO BID Vitals/I & O Vital Sign - Last 24 Hours 09/01/16 09/01/16 09/01/16 09/01/16 15:00 19:00 20:00 23:00 Temp 97.5 98.9 99.5 97.5 98.9 99.5 Pulse 70 75 74 Resp 18 19 19 B/P (MAP) 115/69 (84) 113/59 (77) 107/58 (74) Pulse Ox 99 98 94 O2 Delivery Room Air Room Air Room Air Room Air 09/02/16 09/02/16 09/02/16 09/02/16 03:00 07:00 08:00 08:31 Temp 98.7 97.8 98.7 97.8 Pulse 74 58 58 Resp 19 18 B/P (MAP) 109/70 (83) 112/60 (77) 112/60 Pulse Ox 98 99 O2 Delivery Room Air Room Air Room Air 09/02/16 11:00 Temp 97.1 97.1 Pulse 68 Resp 18 B/P (MAP) 117/61 (79) Pulse Ox 97 O2 Delivery Room Air Intake and Output 09/01/16 09/01/16 09/02/16 14:59 22:59 06:59 Intake Total 400 ml 250 ml Output Total 520 ml 40 ml Balance -120 ml 210 ml MICHI STEVEN MD September 02, 2016 12:39
[2016-09-02] MEDS: ATORVASTATIN CALCIUM 40 MG TABLET. PO SCH (20:30)
[2016-09-03 07:00] VITALS: BP 120/56
[2016-09-03] MEDS: buPROPion SR 150 MG TABLET.SA PO SCH ×2 (08:52→20:06)
[2016-09-03] MEDS: CETIRIZINE HCL 10 MG TABLET. PO SCH (08:52)
[2016-09-03] MEDS: CHOLECALCIFEROL (VITAMIN D3) 1,000 UNIT TABLET PO SCH (08:52)
[2016-09-03] MEDS: hydroCHLOROthiazide 25 MG TABLET PO SCH (08:52)
[2016-09-03] MEDS: LOSARTAN POTASSIUM 50 MG TABLET. PO SCH (08:53)
--- NOTE | 2016-09-03 10:29 | PDOC ---
PROGRESS NOTES Subjective Subjective No changes, social issues persist as no furniture yet at apartment due to bedbugs. She requests her toenails be trimmed Objective Objective Vital Signs Date Time Temp Pulse Resp B/P (MAP) Pulse Ox O2 Delivery O2 Flow Rate FiO2 09/03/16 08:53 77 120/56 09/03/16 07:00 97.9 18 97 Room Air 97.9 09/01/16 10:04 2.0 Intake and Output 09/03/16 07:00 Intake Total 900 ml Balance 900 ml Intake Oral 900 ml # Voids 1 Physical Exam Physical Exam Abdomen: Normal bowel sounds, Soft Heart: Regular rate Extremities: No clubbing, No cyanosis General: Alert, Oriented X3, Cooperative HEENT: Atraumatic Lungs: Clear to auscultation Neck: Supple Neuro: Normal speech Psych/Mental Status: Mental status NL Skin: No breakdown Assessment Assessment Problems Medical Problems: (1) Anemia Status: Acute (2) Breast cancer Status: Acute (3) Left breast abscess Status: Acute Chronic Renal disease Plan Plan of Care Continue supportive care Social work to finalize disposition To high level for SNU Comment Review of Relevant I have reviewed the following items [place] (where applicable) has been applied. Labs Microbiology 08/22/16 Urine Culture - Final, Complete 08/22/16 Urine Culture Result 1 (PAOLA) - Final, Complete Medications Current Medications Ondansetron HCl (Zofran) 4 mg PRN Q8HRS PRN IV NAUSEA/VOMITING; Start 08/22/16 at 13:45; Stop 08/23/16 at 13:44; Status DC Atorvastatin Calcium (Lipitor) 40 mg QHS PO Last administered on 09/02/16 20:30 ; Start 08/22/16 at 21:00 Bupropion HCl (Wellbutrin Sr) 150 mg BID PO Last administered on 09/03/16 08:52 ; Start 08/22/16 at 21:00 Metoprolol Tartrate (Lopressor) 25 mg BID PO Last administered on 08/26/16 19: 58; Start 08/22/16 at 21:00; Stop 08/27/16 at 07:11; Status DC Vitamin D (Vitamin D3) 2,000 unit DAILY PO Last administered on 09/03/16 08:52 ; Start 08/23/16 at 09:00 Cetirizine HCl (Zyrtec) 10 mg DAILY PO Last administered on 09/03/16 08:52; Start 08/23/16 at 09:00 Acetaminophen (Tylenol) 500 mg 1X ONCE PO Last administered on 08/22/16 17:53 ; Start 08/22/16 at 17:15; Stop 08/22/16 at 17:21; Status DC Acetaminophen (Tylenol) 500 mg PRN Q4HRS PRN PO MILD PAIN / TEMP Last administered on 08/24/16 14:00; Start 08/23/16 at 01:00 Acetaminophen (Tylenol) 1,000 mg PRN Q4HRS PRN PO MILD PAIN Last administered on 08/25/16 00:42; Start 08/23/16 at 01:00 Iohexol (Omnipaque 240 Mg/ml) 30 ml 1X ONCE PO Last administered on 08/24/16 10:47; Start 08/24/16 at 08:45; Stop 08/24/16 at 08:46; Status DC Info (Do NOT chart on this entry -- for MONITORING) 1 each PRN DAILY PRN MC SEE COMMENTS; Start 08/24/16 at 08:45; Stop 08/26/16 at 08:44; Status DC Ondansetron HCl (Zofran) 4 mg PRN Q6HRS PRN IV NAUSEA/VOMITING; Start 08/25/16 at 07:00; Stop 08/25/16 at 18:00; Status DC Fentanyl Citrate (Fentanyl 2ml Vial) 25 mcg PRN Q5MIN PRN IV MILD PAIN; Start 08/25/16 at 07:00; Stop 08/25/16 at 18:00; Status DC Fentanyl Citrate (Fentanyl 2ml Vial) 50 mcg PRN Q5MIN PRN IV MODERATE PAIN Last administered on 08/25/16 12:22; Start 08/25/16 at 07:00; Stop 08/25/16 at 18:00; Status DC Morphine Sulfate 1 mg PRN Q10MIN PRN IV SEVERE PAIN; Start 08/25/16 at 07:00; Stop 08/25/16 at 18:00; Status DC Lactated Ringer's 1,000 ml @ 30 mls/hr Q24H IV Last administered on 08/25/16 09:00; Start 08/25/16 at 07:00; Stop 08/25/16 at 18:59; Status DC Lidocaine HCl 2 ml PRN 1X PRN ID PRIOR TO IV START; Start 08/25/16 at 07:00; Stop 08/25/16 at 18:00; Status DC Hydromorphone HCl (Dilaudid) 0.5 mg PRN Q10MIN PRN IV SEV PAIN, Second choice; Start 08/25/16 at 07:00; Stop 08/25/16 at 18:00; Status DC Prochlorperazine Edisylate (Compazine) 5 mg PACU PRN PRN IV NAUSEA, MRX1; Start 08/25/16 at 07:00; Stop 08/25/16 at 18:00; Status DC Cefazolin Sodium 50 ml @ 100 mls/hr 1X PREOP PRN IV prohylaxis Last administered on 08/25/16 10:06; Start 08/25/16 at 06:00; Stop 08/25/16 at 18:00 ; Status DC Bupivacaine HCl/ Epinephrine Bitart (Sensorcain-Mpf Epi 0.5%-1:371680) 30 ml STK -MED ONCE .ROUTE Last administered on 08/25/16 10:50; Start 08/25/16 at 07:21 ; Stop 08/25/16 at 07:22; Status DC Isosulfan Blue (Isosulfan Blue) 50 mg STK-MED ONCE SQ Last administered on 08/25 10:58; Start 08/25/16 at 07:22; Stop 08/25/16 at 07:23; Status DC Propofol 20 ml @ As Directed STK-MED ONCE IV ; Start 08/25/16 at 08:09; Stop at 08:10; Status DC Lidocaine HCl (Lidocaine HCl 2% Abboject) 100 mg STK-MED ONCE .ROUTE ; Start at 08:09; Stop 08/25/16 at 08:10; Status DC Fentanyl Citrate (Fentanyl 2ml Vial) 100 mcg STK-MED ONCE .ROUTE ; Start at 08:09; Stop 08/25/16 at 08:10; Status DC Dexamethasone Sodium Phosphate (Decadron) 20 mg STK-MED ONCE .ROUTE ; Start at 10:02; Stop 08/25/16 at 10:03; Status DC Ephedrine Sulfate (Akovaz) 50 mg STK-MED ONCE .ROUTE ; Start 08/25/16 at 10:02; Stop 08/25/16 at 10:03; Status DC Ondansetron HCl (Zofran) 4 mg STK-MED ONCE .ROUTE ; Start 08/25/16 at 10:40; Stop 08/25/16 at 10:41; Status DC Sevoflurane (Ultane) 30 ml STK-MED ONCE IH ; Start 08/25/16 at 10:40; Stop 08/25 at 10:41; Status DC Fentanyl Citrate (Fentanyl 2ml Vial) 100 mcg STK-MED ONCE .ROUTE ; Start at 10:50; Stop 08/25/16 at 10:51; Status DC Acetaminophen/ Hydrocodone Bitart (Lortab 5/325) 1 tab PRN Q4HRS PRN PO MODERATE - SEVERE PAIN Last administered on 09/02/16 21:32; Start 08/25/16 at 12 :00 Enoxaparin Sodium (Lovenox 30mg Syringe) 30 mg Q24H SQ Last administered on 09/02 11:55; Start 08/25/16 at 12:00 Hydromorphone HCl (Dilaudid) 1 mg PRN Q4HRS PRN IV PAIN Last administered on 00:00; Start 08/25/16 at 15:15; Stop 09/01/16 at 08:56; Status DC Bisacodyl (Dulcolax Supp) 10 mg PRN DAILY PRN [place] CONSTIPATION; Start 08/26/16 at 09:30 Bisacodyl (Dulcolax Tab) 5 mg PRN DAILY PRN PO CONSTIPATION Last administered on 08/26/16 19:58; Start 08/26/16 at 09:30 Sodium Chloride 1,000 ml @ 75 mls/hr [id number] IV Last administered on 19:58; Start 08/26/16 at 11:00; Stop 08/27/16 at 13:42; Status DC Losartan Potassium (Cozaar) 100 mg DAILY PO Last administered on 09/03/16 08:53 ; Start 08/27/16 at 09:00 Hydrochlorothiazide (Hydrodiuril) 25 mg DAILY PO Last administered on 09/03/16t 08:52; Start 08/27/16 at 09:00 Active Scripts Active Reported Loratadine 10 Mg Tablet 1 Tab PO DAILY Atorvastatin Calcium 40 Mg Tablet 1 Tab PO QHS Metoprolol Tartrate 25 Mg Tablet 1 Tab PO BID Losartan-Hctz 100-25 Mg Tab (Losartan/Hydrochlorothiazide) 1 Each Tablet 1 Tab PO DAILY Furosemide 40 Mg Tablet 1 Tab PO DAILY Aspirin 81 Mg Tab.chew 1 Tab PO DAILY Vitamin D (Cholecalciferol (Vitamin D3)) 2,000 Unit Capsule 1 Cap PO DAILY Wellbutrin Sr (Bupropion Hcl) 150 Mg Tablet.er 1 Tab PO BID Vitals/I & O Vital Sign - Last 24 Hours 09/02/16 09/02/16 09/02/16 09/02/16 11:00 15:00 19:00 19:20 Temp 97.1 98.4 97.9 99.4 97.1 98.4 97.9 99.4 Pulse 68 64 94 76 Resp 18 18 18 18 B/P (MAP) 117/61 (79) 118/63 (81) 109/62 (78) 119/68 (85) Pulse Ox 97 97 97 98 O2 Delivery Room Air Room Air Room Air Room Air 09/02/16 09/02/16 09/03/16 09/03/16 20:12 23:35 07:00 08:53 Temp 98.6 97.9 98.6 97.9 Pulse 73 77 77 Resp 18 18 B/P (MAP) 118/59 (78) 120/56 (77) 120/56 Pulse Ox 96 97 O2 Delivery Room Air Room Air Room Air Intake and Output 09/02/16 09/02/16 09/03/16 15:00 23:00 07:00 Intake Total 600 ml 300 ml Balance 600 ml 300 ml MARY TOLENTINO MD September 03, 2016 10:29
[2016-09-03 11:21] VITALS: BP 123/78
[2016-09-03] MEDS: ENOXAPARIN 30 MG/0.3 ML SYRINGE. SQ SCH (13:11)
[2016-09-03 15:00] VITALS: BP 113/60
[2016-09-03 19:00] VITALS: BP 126/64
[2016-09-03] MEDS: ATORVASTATIN CALCIUM 40 MG TABLET. PO SCH (20:06)
[2016-09-03 23:57] VITALS: BP 134/74
[2016-09-04] MEDS: HYDROcodone/APAP 5/325MG 1 TAB TABLET PO PRN ×2 (01:47→12:16)
[2016-09-04 03:40] VITALS: BP 115/63
[2016-09-04 07:22] VITALS: BP 113/63
[2016-09-04] MEDS: LOSARTAN POTASSIUM 50 MG TABLET. PO SCH (08:51)
[2016-09-04] MEDS: hydroCHLOROthiazide 25 MG TABLET PO SCH (08:51)
[2016-09-04] MEDS: CHOLECALCIFEROL (VITAMIN D3) 1,000 UNIT TABLET PO SCH (08:57)
[2016-09-04] MEDS: CETIRIZINE HCL 10 MG TABLET. PO SCH (08:57)
[2016-09-04] MEDS: buPROPion SR 150 MG TABLET.SA PO SCH ×2 (08:57→20:41)
[2016-09-04 11:23] VITALS: BP 107/54
--- NOTE | 2016-09-04 11:36 | PDOC ---
PROGRESS NOTES Subjective Subjective Patient with out new complaints. awaiting placement Objective Objective Vital Signs Date Time Temp Pulse Resp B/P (MAP) Pulse Ox O2 Delivery O2 Flow Rate FiO2 09/04/16 08:51 67 113/63 09/04/16 07:22 97.1 16 96 Room Air 97.1 09/01/16 10:04 2.0 Intake and Output 09/04/16 07:00 Intake Total 2340 ml Output Total 75 ml Balance 2265 ml Intake Oral 2340 ml Drainage Total 75 ml # Voids 5 Physical Exam Physical Exam Abdomen: Normal bowel sounds, Soft Heart: Regular rate Extremities: No clubbing, No cyanosis General: Alert, Oriented X3, Cooperative HEENT: Atraumatic Lungs: Clear to auscultation Neck: Supple Neuro: Normal speech Psych/Mental Status: Mental status NL Skin: No breakdown Assessment Assessment Problems Medical Problems: (1) Anemia Status: Acute (2) Breast cancer Status: Acute (3) Left breast abscess Status: Acute Chronic Renal disease Plan Plan of Care Continue supportive care Social work to finalize disposition To high level for SNU Comment Review of Relevant I have reviewed the following items [place] (where applicable) has been applied. Labs Microbiology 08/22/16 Urine Culture - Final, Complete 08/22/16 Urine Culture Result 1 (PAOLA) - Final, Complete Medications Current Medications Ondansetron HCl (Zofran) 4 mg PRN Q8HRS PRN IV NAUSEA/VOMITING; Start 08/22/16 at 13:45; Stop 08/23/16 at 13:44; Status DC Atorvastatin Calcium (Lipitor) 40 mg QHS PO Last administered on 09/03/16 20:06 ; Start 08/22/16 at 21:00 Bupropion HCl (Wellbutrin Sr) 150 mg BID PO Last administered on 09/04/16 08:57 ; Start 08/22/16 at 21:00 Metoprolol Tartrate (Lopressor) 25 mg BID PO Last administered on 08/26/16 19: 58; Start 08/22/16 at 21:00; Stop 08/27/16 at 07:11; Status DC Vitamin D (Vitamin D3) 2,000 unit DAILY PO Last administered on 09/04/16 08:57 ; Start 08/23/16 at 09:00 Cetirizine HCl (Zyrtec) 10 mg DAILY PO Last administered on 09/04/16 08:57; Start 08/23/16 at 09:00 Acetaminophen (Tylenol) 500 mg 1X ONCE PO Last administered on 08/22/16 17:53 ; Start 08/22/16 at 17:15; Stop 08/22/16 at 17:21; Status DC Acetaminophen (Tylenol) 500 mg PRN Q4HRS PRN PO MILD PAIN / TEMP Last administered on 08/24/16 14:00; Start 08/23/16 at 01:00 Acetaminophen (Tylenol) 1,000 mg PRN Q4HRS PRN PO MILD PAIN Last administered on 08/25/16 00:42; Start 08/23/16 at 01:00 Iohexol (Omnipaque 240 Mg/ml) 30 ml 1X ONCE PO Last administered on 08/24/16 10:47; Start 08/24/16 at 08:45; Stop 08/24/16 at 08:46; Status DC Info (Do NOT chart on this entry -- for MONITORING) 1 each PRN DAILY PRN MC SEE COMMENTS; Start 08/24/16 at 08:45; Stop 08/26/16 at 08:44; Status DC Ondansetron HCl (Zofran) 4 mg PRN Q6HRS PRN IV NAUSEA/VOMITING; Start 08/25/16 at 07:00; Stop 08/25/16 at 18:00; Status DC Fentanyl Citrate (Fentanyl 2ml Vial) 25 mcg PRN Q5MIN PRN IV MILD PAIN; Start 08/25/16 at 07:00; Stop 08/25/16 at 18:00; Status DC Fentanyl Citrate (Fentanyl 2ml Vial) 50 mcg PRN Q5MIN PRN IV MODERATE PAIN Last administered on 08/25/16 12:22; Start 08/25/16 at 07:00; Stop 08/25/16 at 18:00; Status DC Morphine Sulfate 1 mg PRN Q10MIN PRN IV SEVERE PAIN; Start 08/25/16 at 07:00; Stop 08/25/16 at 18:00; Status DC Lactated Ringer's 1,000 ml @ 30 mls/hr Q24H IV Last administered on 08/25/16 09:00; Start 08/25/16 at 07:00; Stop 08/25/16 at 18:59; Status DC Lidocaine HCl 2 ml PRN 1X PRN ID PRIOR TO IV START; Start 08/25/16 at 07:00; Stop 08/25/16 at 18:00; Status DC Hydromorphone HCl (Dilaudid) 0.5 mg PRN Q10MIN PRN IV SEV PAIN, Second choice; Start 08/25/16 at 07:00; Stop 08/25/16 at 18:00; Status DC Prochlorperazine Edisylate (Compazine) 5 mg PACU PRN PRN IV NAUSEA, MRX1; Start 08/25/16 at 07:00; Stop 08/25/16 at 18:00; Status DC Cefazolin Sodium 50 ml @ 100 mls/hr 1X PREOP PRN IV prohylaxis Last administered on 08/25/16 10:06; Start 08/25/16 at 06:00; Stop 08/25/16 at 18:00 ; Status DC Bupivacaine HCl/ Epinephrine Bitart (Sensorcain-Mpf Epi 0.5%-[id number]) 30 ml STK -MED ONCE .ROUTE Last administered on 08/25/16 10:50; Start 08/25/16 at 07:21 ; Stop 08/25/16 at 07:22; Status DC Isosulfan Blue (Isosulfan Blue) 50 mg STK-MED ONCE SQ Last administered on 08/25 10:58; Start 08/25/16 at 07:22; Stop 08/25/16 at 07:23; Status DC Propofol 20 ml @ As Directed STK-MED ONCE IV ; Start 08/25/16 at 08:09; Stop at 08:10; Status DC Lidocaine HCl (Lidocaine HCl 2% Abboject) 100 mg STK-MED ONCE .ROUTE ; Start at 08:09; Stop 08/25/16 at 08:10; Status DC Fentanyl Citrate (Fentanyl 2ml Vial) 100 mcg STK-MED ONCE .ROUTE ; Start at 08:09; Stop 08/25/16 at 08:10; Status DC Dexamethasone Sodium Phosphate (Decadron) 20 mg STK-MED ONCE .ROUTE ; Start at 10:02; Stop 08/25/16 at 10:03; Status DC Ephedrine Sulfate (Akovaz) 50 mg STK-MED ONCE .ROUTE ; Start 08/25/16 at 10:02; Stop 08/25/16 at 10:03; Status DC Ondansetron HCl (Zofran) 4 mg STK-MED ONCE .ROUTE ; Start 08/25/16 at 10:40; Stop 08/25/16 at 10:41; Status DC Sevoflurane (Ultane) 30 ml STK-MED ONCE IH ; Start 08/25/16 at 10:40; Stop 08/25 at 10:41; Status DC Fentanyl Citrate (Fentanyl 2ml Vial) 100 mcg STK-MED ONCE .ROUTE ; Start at 10:50; Stop 08/25/16 at 10:51; Status DC Acetaminophen/ Hydrocodone Bitart (Lortab 5/325) 1 tab PRN Q4HRS PRN PO MODERATE - SEVERE PAIN Last administered on 09/04/16 01:47; Start 08/25/16 at 12 :00 Enoxaparin Sodium (Lovenox 30mg Syringe) 30 mg Q24H SQ Last administered on 09/03 13:11; Start 08/25/16 at 12:00 Hydromorphone HCl (Dilaudid) 1 mg PRN Q4HRS PRN IV PAIN Last administered on 00:00; Start 08/25/16 at 15:15; Stop 09/01/16 at 08:56; Status DC Bisacodyl (Dulcolax Supp) 10 mg PRN DAILY PRN [place] CONSTIPATION; Start 08/26/16 at 09:30 Bisacodyl (Dulcolax Tab) 5 mg PRN DAILY PRN PO CONSTIPATION Last administered on 08/26/16 19:58; Start 08/26/16 at 09:30 Sodium Chloride 1,000 ml @ 75 mls/hr [id number] IV Last administered on 19:58; Start 08/26/16 at 11:00; Stop 08/27/16 at 13:42; Status DC Losartan Potassium (Cozaar) 100 mg DAILY PO Last administered on 09/04/16 08:51 ; Start 08/27/16 at 09:00 Hydrochlorothiazide (Hydrodiuril) 25 mg DAILY PO Last administered on 09/04/16 08:51; Start 08/27/16 at 09:00 Active Scripts Active Reported Loratadine 10 Mg Tablet 1 Tab PO DAILY Atorvastatin Calcium 40 Mg Tablet 1 Tab PO QHS Metoprolol Tartrate 25 Mg Tablet 1 Tab PO BID Losartan-Hctz 100-25 Mg Tab (Losartan/Hydrochlorothiazide) 1 Each Tablet 1 Tab PO DAILY Furosemide 40 Mg Tablet 1 Tab PO DAILY Aspirin 81 Mg Tab.chew 1 Tab PO DAILY Vitamin D (Cholecalciferol (Vitamin D3)) 2,000 Unit Capsule 1 Cap PO DAILY Wellbutrin Sr (Bupropion Hcl) 150 Mg Tablet.er 1 Tab PO BID Vitals/I & O Vital Sign - Last 24 Hours 09/03/16 09/03/16 09/03/16 09/03/16 15:00 19:00 20:00 23:57 Temp 98.1 98.2 98.2 98.1 98.2 98.2 Pulse 77 74 78 Resp 18 16 16 B/P (MAP) 113/60 (77) 126/64 (84) 134/74 (94) Pulse Ox 96 99 99 O2 Delivery Room Air Room Air Room Air Room Air 09/04/16 09/04/16 09/04/16 03:40 07:22 08:51 Temp 98.1 97.1 98.1 97.1 Pulse 74 67 67 Resp 16 16 B/P (MAP) 115/63 (80) 113/63 (80) 113/63 Pulse Ox 95 96 O2 Delivery Room Air Room Air Intake and Output 09/03/16 09/03/16 09/04/16 15:00 23:00 07:00 Intake Total 840 ml 960 ml 540 ml Output Total 60 ml 15 ml Balance 840 ml 900 ml 525 ml MARY TOLENTINO MD September 04, 2016 11:36
[2016-09-04] MEDS: ENOXAPARIN 30 MG/0.3 ML SYRINGE. SQ SCH (12:16)
[2016-09-04 14:00] VITALS: BP 115/54
[2016-09-04 19:58] VITALS: BP 127/63
[2016-09-04] MEDS: ATORVASTATIN CALCIUM 40 MG TABLET. PO SCH (20:41)
[2016-09-04 23:57] VITALS: BP 124/73
[2016-09-05 03:43] VITALS: BP 111/52
[2016-09-05] MEDS: HYDROcodone/APAP 5/325MG 1 TAB TABLET PO PRN (05:58)
[2016-09-05 07:00] VITALS: BP 93/52
[2016-09-05] MEDS: LOSARTAN POTASSIUM 50 MG TABLET. PO SCH ×2 (08:41→09:00)
[2016-09-05] MEDS: CHOLECALCIFEROL (VITAMIN D3) 1,000 UNIT TABLET PO SCH (08:42)
[2016-09-05] MEDS: CETIRIZINE HCL 10 MG TABLET. PO SCH (08:42)
[2016-09-05] MEDS: buPROPion SR 150 MG TABLET.SA PO SCH (08:42)
[2016-09-05] MEDS: hydroCHLOROthiazide 25 MG TABLET PO SCH (09:00)
--- NOTE | 2016-09-05 09:01 | PDOC ---
SHELLIE MATA APRN 09/05/16 0901: SURGICAL PROGRESS NOTE Subjective no complaints eating breakfast Vital Signs Vital Signs Date Time Temp Pulse Resp B/P (MAP) Pulse Ox O2 Delivery O2 Flow Rate FiO2 09/05/16 07:42 97 Room Air 2.0 09/05/16 07:00 97.8 67 18 93/52 (66) 97.8 I&O Intake and Output 09/05/16 06:59 Intake Total 900 ml Output Total 80 ml Balance 820 ml Intake Oral 900 ml Drainage Total 80 ml # Voids 4 General: Alert, Oriented X3, Cooperative, No acute distress Skin: Other (left breast incision c/d/i, no erythema, randy serous ) Problem List Problems Medical Problems: (1) Anemia Status: Acute (2) Breast cancer Status: Acute (3) Left breast abscess Status: Acute Assessment/Plan s/p mastectomy drain output 75cc Monday and 80cc Monday--continue drain if DCs fu in clinic with Dr Ching Monday09/09/16 Problems: ATIF CHING MD 09/05/16 0942: SURGICAL PROGRESS NOTE Assessment/Plan agree with above Problems: SHELLIE MATA APRN September 05, 2016 09:01 ATIF CHING MD September 05, 2016 09:42
[2016-09-05 11:00] VITALS: BP 124/63
[2016-09-05] MEDS: ENOXAPARIN 30 MG/0.3 ML SYRINGE. SQ SCH (12:24)
[2016-09-05 15:00] VITALS: BP 115/77
--- NOTE | 2016-09-05 15:30 | PDOC3 ---
Discharge Summary Visit Information Date of Admission: Aug 22, 2016 Date of Discharge: September 05, 2016 Final Diagnosis Problems Medical Problems: (1) Anemia Status: Acute (2) Breast cancer Status: Acute (3) Left breast abscess Status: Acute Brief Hospital Course Allergies Allergies Coded Allergies Type Severity Reaction Last Updated Verified No Known Drug Allergies 08/25/16 No Vital Signs Vital Signs Date Time Temp Pulse Resp B/P (MAP) Pulse Ox O2 Delivery O2 Flow Rate FiO2 09/05/16 15:00 98.6 76 18 115/77 (90) 96 Room Air 98.6 09/05/16 07:42 2.0 Brief Hospital Course Ms. Cali is a 70 old female who presented with (see dictation 08/30/16 summary) , this is an addendum to it as patient was not able to be discharged that day as she had no home to return to. Her apartment had been treated for bedbugs and she had no furniture, a family prevented her from going home with family, since she has had no medical issues, one of her 2 drains have been removed from her left chest wall. Rad onc has reviewed her pathology and recommended she start radiation treatment and will see her in a month as she is at high risk for local recurrence. Her renal function is baseline, her chronic anemia is baseline Discharge Information Condition at Discharge: Improved, Stable Follow Up: Weeks ([address] mAaya, [address] Muhammad, [address] Avery) Disposition/Orders: D/C to Home w/ HH Scheduled Atorvastatin Calcium (Atorvastatin Calcium), 1 TAB PO QHS, (Reported) Bupropion Hcl (Wellbutrin Sr), 1 TAB PO BID, (Reported) Cholecalciferol (Vitamin D3) (Vitamin D), 1 CAP PO DAILY, (Reported) Loratadine (Loratadine), 1 TAB PO DAILY, (Reported) Losartan/Hydrochlorothiazide (Losartan-Hctz 100-25 Mg Tab), 1 TAB PO DAILY, ( Reported) Scheduled PRN Acetaminophen (Mapap), 500 MG PO PRN Q4HRS PRN for MILD PAIN / TEMP Bisacodyl (Bisacodyl), 5 MG PO PRN DAILY PRN for CONSTIPATION Hydrocodone Bit/Acetaminophen (Hydrocodone-Apap 5-325 ), 1 TAB PO PRN Q4HRS PRN for MODERATE - SEVERE PAIN [Bisacodyl], 10 MG ID PRN DAILY PRN for CONSTIPATION Discontinued Medications Aspirin (Aspirin), 1 TAB PO DAILY, (Reported) Furosemide (Furosemide), 1 TAB PO DAILY, (Reported) Metoprolol Tartrate (Metoprolol Tartrate), 1 TAB PO BID, (Reported) MICHI MUHAMMAD MD September 05, 2016 15:30
--- NOTE | 2016-09-05 16:46 | PDOC ---
Renal-Progress Notes Subjective Notes Notes NONE History of Present Illness Hx of present illness STABLE Vitals Vitals Vital Signs Date Time Temp Pulse Resp B/P (MAP) Pulse Ox O2 Delivery O2 Flow Rate FiO2 09/05/16 15:00 98.6 76 18 115/77 (90) 96 Room Air 98.6 09/05/16 07:42 2.0 Weight Weight [ ] I.O. Intake and Output Intake and Output 09/05/16 07:00 Intake Total 900 ml Output Total 80 ml Balance 820 ml Intake Oral 900 ml Drainage Total 80 ml # Voids 4 Micro Micro Microbiology 08/22/16 Urine Culture - Final, Complete 08/22/16 Urine Culture Result 1 (PAOLA) - Final, Complete Review of Systems Constitutional: yes: no symptom reported Physical Exam General Appearance: no apparent distress Skin: warm Respiratory: decreased breath sounds Heart: S1S2 Abdomen: soft, bowel sounds present Extremities: pulses present Neurology: alert Musculoskeletal: Osteoarthritis Assessment Assessment IMP BREAST CA S/P MASTECTOMY STAGE 4 CKD WITH CR AT BASELINE OF 2.2 PLAN SUPPORTIVE CARE WILL FOLLOW ROSLYN MATT MD September 05, 2016 16:46
== END 2016-09-05 15:40 | disposition home health service (06) | DRG 580 ==
LOC: ER 10:55 → OBSVTOIN 13:15 → ED HOLD 13:15 → 6 SOUTH 18:45
PROVIDERS: ADMIT Family Medicine; ATTEND Family Medicine
PROC: 30233N1 Transfusion of Nonautologous Red Blood Cells into Peripheral Vein, Percutaneous Approach (ICD-10-PCS; 2016-08-22)
PROC: 0HTU0ZZ Resection of Left Breast, Open Approach (ICD-10-PCS; principal; 2016-08-25 09:15)
PROC: 07B60ZZ Excision of Left Axillary Lymphatic, Open Approach (ICD-10-PCS; 2016-08-25 09:15)
PROC: C71LYZZ Planar Nuclear Medicine Imaging of Upper Chest Lymphatics using Other Radionuclide (ICD-10-PCS; 2016-08-26)
DX: C50.912 Malignant neoplasm of unspecified site of left female breast (principal); N17.9 Acute kidney failure, unspecified; I13.0 Hypertensive heart and chronic kidney disease with heart failure and stage 1 through stage 4 chronic kidney disease, or unspecified chronic kidney disease; D62 Acute posthemorrhagic anemia; C77.3 Secondary and unspecified malignant neoplasm of axilla and upper limb lymph nodes; N18.4 Chronic kidney disease, stage 4 (severe); N61.1 Abscess of the breast and nipple; E78.5 Hyperlipidemia, unspecified; I50.9 Heart failure, unspecified; D63.1 Anemia in chronic kidney disease; K59.00 Constipation, unspecified; M16.0 Bilateral primary osteoarthritis of hip; Z83.3 Family history of diabetes mellitus; Z96.659 Presence of unspecified artificial knee joint; Z60.2 Problems related to living alone; Z51.5 Encounter for palliative care; M54.31 Sciatica, right side; F32.9 Major depressive disorder, single episode, unspecified; J30.9 Allergic rhinitis, unspecified; M19.90 Unspecified osteoarthritis, unspecified site
CPT/HCPCS: 36415; 71250; 74176; 78306; 80048; 80053; 80076; 81001; 82274; 82553; 82728; 83010; 83540; 83550; 83615; 83735; 83880; 84484; 85027; 85045; 85610; 86850; 86900; 86901; 86920; 87086; 87641; 88307; 88309; 88331; 93005; 96374; A9503; C1769; J0690; J1100; J1170; J1650; J2405; J2704; J3010; J3490; J7030; J7120; P9016; Q9966; Q9968; 97116; 97530; 97535; 99285-25

== ENCOUNTER → 2016-12-26 | Outpatient (CLI) | payer OTHER ==
[~2016-12-26] MED LIST changes: +ACET500T55 PO; +ASPI-630 PO; -ASPI81TA2 PO; +BISA5TAB4 PO; +Bisacodyl PR; +CHOL20002 PO; +HYDR-2758 PO
--- NOTE | 2016-12-26 15:07 | RAD ---
DATE: 12/26/2016 EXAM: DIGITAL DIAGNOSTIC RT HISTORY: Recent left breast cancer post left mastectomy. COMPARISON: 08/02/2014. This study was interpreted with the benefit of Computerized Aided Detection (CAD). The breast parenchyma shows scattered fibroglandular densities. Breast parenchyma level B. FINDINGS: Two cc and two MLO digital mammograms of the right breast were obtained. Comparison study is dated 08/02/2014. The right breast parenchyma is composed of scattered fibroglandular densities which can obscure a lesion on mammography. No spiculated mass is seen. No malignant appearing calcification or area of architectural distortion is noted. Since the previous examination there has been no significant interval change. IMPRESSION: BI-RADS Category 1, negative. There is no mammographic evidence of malignancy involving the right breast. BI-RADS CATEGORY: 1 NEGATIVE RECOMMENDED FOLLOW-UP: 12M 12 MONTH FOLLOW-UP PQRS compliance statement: Patient information was entered into a reminder system with a target due date 12/26/2017 for the next mammogram. Mammography is a sensitive method for finding small breast cancers, but it does not detect them all and is not a substitute for careful clinical examination. A negative mammogram does not negate a clinically suspicious finding and should not result in delay in biopsying a clinically suspicious abnormality. "Our facility is accredited by the [employer] Mammography Program."
== END | disposition home or self-care (01) ==
LOC: MAMMO 14:33
PROVIDERS: ATTEND Radiology Radiation Oncology
DX: C50.912 Malignant neoplasm of unspecified site of left female breast (principal); Z90.710 Acquired absence of both cervix and uterus; Z85.3 Personal history of malignant neoplasm of breast
CPT/HCPCS: G0206; 77065

== ENCOUNTER → 2017-01-09 | Outpatient (CLI) | payer OTHER ==
--- NOTE | 2017-01-09 13:52 | RAD ---
Indication right hip pain for several weeks. History of breast malignancy. Whole body static images were obtained. 25 mCi of technetium labeled MDP was administered. Note is made of a previous examination 08/24/2016. Note is made of the history of breast malignancy There is increased uptake about both shoulders similar to slightly worse than on the previous exam which is likely degenerative. There is some slightly increased uptake in the cervical spine similar to the previous exam almost certainly degenerative. Changes compatible with a knee replacement are noted on the left. Increased activity is seen in both ankles and in the feet almost certainly degenerative. There is substantially increased uptake about both hips right greater than left. The activity is slightly more intense than on the previous exam. Note is made of advanced degenerative changes involving the hips, right greater than left, on a CT examination 08/24/2016. The findings on bone scan are almost certainly secondary to degenerative change but occult fracture is not excluded and plain film examination should be considered. There is no definite evidence of metastatic disease. IMPRESSION: Multiple areas of abnormal uptake likely degenerative. Increased activity in the hips is likely degenerative. See above discussion No definite evidence of metastatic disease :
== END | disposition home or self-care (01) ==
LOC: NM 09:45
PROVIDERS: ATTEND Family Medicine
DX: M25.551 Pain in right hip (principal); Z85.3 Personal history of malignant neoplasm of breast
CPT/HCPCS: 78306; 96374; A9503

== ENCOUNTER 2017-12-07 13:08 | Emergency (ER) | payer MEDICARE, OTHER ==
[~2017-12-07] VITALS: Ht 172.7 cm; Wt 93.4 kg
[~2017-12-07 13:08] MED LIST changes: +AMLO10TA2 PO; +CETI5SOL PO; +DONE5TAB56 PO; +FERR325T14 PO; -LOSA1TAB17 PO; +LOSA1TAB22 PO; +METO2.5T PO; +SENN8.6T99 PO
--- NOTE | 2017-12-07 13:55 | EKG ---
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
[2017-12-07 13:58] LABS: BASO % 1 % (0-3); EOS # 0.2 x10^3/uL (0.0-0.7); EOS % 4 % (0-3); HEMATOCRIT 33.9 % (36.0-47.0); HEMOGLOBIN 10.9 g/dL (12.0-15.5); LYMPH # 1.1 x10^3/uL (1.0-4.8); LYMPH % 25 % (24-48); MEAN CORPUSCULAR HEMOGLOBIN 27 pg (25-35); MEAN CORPUSCULAR HGB CONC 32 g/dL (31-37); MEAN CORPUSCULAR VOLUME 85 fL (79-100); MONO # 0.5 x10^3/uL (0.0-1.1); MONO % 11 % (0-9); NEUT # 2.8 x10^3uL (1.8-7.7); NEUT % 60 % (31-73); PLATELET COUNT 255 x10^3/uL (140-400); RED BLOOD COUNT 3.99 x10^6/uL (3.50-5.40); RED CELL DISTRIBUTION WIDTH 17.1 % (11.5-14.5); WHITE BLOOD COUNT 4.6 x10^3/uL (4.0-11.0)
[2017-12-07 14:11] LABS: CALCIUM 10.1 mg/dL (8.5-10.1); CREATININE 1.8 mg/dL (0.6-1.0); GFR 33.7; POTASSIUM 3.9 mmol/L (3.5-5.1)
[2017-12-07 14:18] LABS: ALBUMIN 3.5 g/dL (3.4-5.0); ALBUMIN/GLOBULIN RATIO 0.7 (1.0-1.7); TOTAL BILIRUBIN 0.4 mg/dL (0.2-1.0); TOTAL PROTEIN 8.5 g/dL (6.4-8.2)
--- NOTE | 2017-12-07 15:10 | PHYS DOC ---
Past Medical History Past Medical History: Cancer, Hypertension, Renal Disease, Other Additional Past Medical Histor: chronic edema, pt reports no medical history Past Surgical History: Cancer Surgery, Knee Replacement, Other Additional Past Surgical Histo: incision and drainage of abcess to left breast Alcohol Use: None Drug Use: None Adult General Chief Complaint Chief Complaint: OTHER COMPLAINTS [facility] [place] Patient is a 72 year old female who presents with reported EKG changes from her halfway. The patient states that she had some mild chest discomfort last night. She states that she has been pain free all day today. She had a normal EKG done yesterday. Her nurse today sent her to the emergency department to be checked for her chest pain. The patient denies any current chest pain, shortness of breath or other symptoms. Review of Systems Review of Systems Constitutional: Denies fever or chills [] Eyes: Denies change in visual acuity, redness, or eye pain [] HENT: Denies nasal congestion or sore throat [] Respiratory: Denies cough or shortness of breath [] Cardiovascular: No additional information not addressed in HPI [] GI: Denies abdominal pain, nausea, vomiting, bloody stools or diarrhea [] : Denies dysuria or hematuria [] Musculoskeletal: Denies back pain or joint pain [] Integument: Denies rash or skin lesions [] Neurologic: Denies headache, focal weakness or sensory changes [] Endocrine: Denies polyuria or polydipsia [] All other systems were reviewed and found to be within normal limits, except as documented in this note. Allergies Allergies Allergies Coded Allergies Type Severity Reaction Last Updated Verified No Known Drug Allergies 08/25/16 No Physical Exam Physical Exam Constitutional: Well developed, well nourished, no acute distress, non-toxic appearance. [] Neck: Normal range of motion, no tenderness, supple, no stridor. [] Cardiovascular:Heart rate regular rhythm, no murmur [] Lungs & Thorax: Bilateral breath sounds clear to auscultation [] Abdomen: Bowel sounds normal, soft, no tenderness, no masses, no pulsatile masses. [] Skin: Warm, dry, no erythema, no rash. [] Back: No tenderness, no CVA tenderness. [] Extremities: No tenderness, no cyanosis, no clubbing, ROM intact, no edema. [] Neurologic: Alert and oriented X 3, normal motor function, normal sensory function, no focal deficits noted. [] Psychologic: Affect normal, judgement normal, mood normal. [] Current Patient Data Vital Signs Vital Signs Date Time Temp Pulse Resp B/P (MAP) Pulse Ox O2 Delivery O2 Flow Rate FiO2 12/07/17 16:00 82 150/88 (108) 100 Room Air 12/07/17 13:30 98.2 20 98.2 Lab Values Laboratory Tests Test 12/07/17 13:45 White Blood Count 4.6 x10^3/uL (4.0-11.0) Red Blood Count 3.99 x10^6/uL (3.50-5.40) Hemoglobin 10.9 g/dL (12.0-15.5) L Hematocrit 33.9 % (36.0-47.0) L Mean Corpuscular Volume 85 fL (79-100) Mean Corpuscular Hemoglobin 27 pg (25-35) Mean Corpuscular Hemoglobin Concent 32 g/dL (31-37) Red Cell Distribution Width 17.1 % (11.5-14.5) H Platelet Count 255 x10^3/uL (140-400) Neutrophils (%) (Auto) 60 % (31-73) Lymphocytes (%) (Auto) 25 % (24-48) Monocytes (%) (Auto) 11 % (0-9) H Eosinophils (%) (Auto) 4 % (0-3) H Basophils (%) (Auto) 1 % (0-3) Neutrophils # (Auto) 2.8 x10^3uL (1.8-7.7) Lymphocytes # (Auto) 1.1 x10^3/uL (1.0-4.8) Monocytes # (Auto) 0.5 x10^3/uL (0.0-1.1) Eosinophils # (Auto) 0.2 x10^3/uL (0.0-0.7) Basophils # (Auto) 0.0 x10^3/uL (0.0-0.2) Sodium Level 137 mmol/L (136-145) Potassium Level 3.9 mmol/L (3.5-5.1) Chloride Level 100 mmol/L (98-107) Carbon Dioxide Level 31 mmol/L (21-32) Anion Gap 6 (6-14) Blood Urea Nitrogen 23 mg/dL (7-20) H Creatinine 1.8 mg/dL (0.6-1.0) H Estimated GFR (Cockcroft-Gault) 33.7 BUN/Creatinine Ratio 13 (6-20) Glucose Level 90 mg/dL (70-99) Calcium Level 10.1 mg/dL (8.5-10.1) Total Bilirubin 0.4 mg/dL (0.2-1.0) Aspartate Amino Transferase (AST) 23 U/L (15-37) Alanine Aminotransferase (ALT) 27 U/L (14-59) Alkaline Phosphatase 105 U/L (46-116) Creatine Kinase 158 U/L (26-192) Creatine Kinase MB (Mass) 1.1 ng/mL (0.0-3.6) Creatine Kinase MB Relative Index 0.7 % (0-4) Troponin I Quantitative < 0.017 ng/mL (0.000-0.055) Total Protein 8.5 g/dL (6.4-8.2) H Albumin 3.5 g/dL (3.4-5.0) Albumin/Globulin Ratio 0.7 (1.0-1.7) L Laboratory Tests 12/07/17 13:45 Laboratory Tests 12/07/17 13:45 EKG EKG [] Radiology/Procedures Radiology/Procedures [] Course & Med Decision Making Course & Med Decision Making Pertinent Labs and Imaging studies reviewed. (See chart for details) []EKG and imaging did not show any acute cardiac process. The patient has remained pain-free in the emergency department. She will be discharged back to her nursing facility. Dragon Disclaimer Dragon Disclaimer This electronic medical record was generated, in whole or in part, using a voice recognition dictation system. Departure Departure Impression: Primary Impression: Chest pain of uncertain etiology Disposition: HOME, SELF-CARE Condition: STABLE Referrals: RUPA ORTIZ MD (PCP) Patient Instructions: Chest Pain (Nonspecific) Additional Instructions: The patient is to follow-up with her primary care provider in 3 days for recheck or return to the emergency department if worsening. BRIAN GALAVIZ BONDING MACHINE OPERATOR Dec 07, 2017 15:10
[2017-12-07 16:00] VITALS: BP 150/88
== END 2017-12-07 16:20 | disposition home or self-care (01) ==
LOC: ER 13:08
DX: R07.89 Other chest pain (principal); I10 Essential (primary) hypertension
CPT/HCPCS: 36415; 80053; 82550; 82553; 84484; 85025; 93005; 99285-25

== ENCOUNTER → 2018-03-02 | Outpatient (CLI) | payer OTHER ==
[~2018-03-02] MED LIST changes: -AMLO10TA2 PO; +AMLO10TA6 PO; -CHOL20002 PO; +CHOL200059 PO; +EPOE10003 IM; +MELA3TAB2 PO; +SODI650T PO
--- NOTE | 2018-03-02 13:08 | RAD ---
DATE: 03/02/2018 EXAM: DIGITAL DIAGNOSTIC RT HISTORY: Left breast cancer COMPARISON: 12/26/2016 This study was interpreted with the benefit of Computerized Aided Detection (CAD). Breast Density: SCATTERED The breast parenchyma shows scattered fibroglandular densities. Breast parenchyma level B. FINDINGS: No new or enlarging breast densities are seen. No suspicious microcalcifications are evident. IMPRESSION: Stable right mammograms without evidence of malignancy. BI-RADS CATEGORY: 1 NEGATIVE RECOMMENDED FOLLOW-UP: 12M 12 MONTH FOLLOW-UP PQRS compliance statement: Patient information was entered into a reminder system with a target due date for the next mammogram. Mammography is a sensitive method for finding small breast cancers, but it does not detect them all and is not a substitute for careful clinical examination. A negative mammogram does not negate a clinically suspicious finding and should not result in delay in biopsying a clinically suspicious abnormality. "Our facility is accredited by the [employer] Mammography Program."
== END | disposition home or self-care (01) ==
LOC: MAMMO 12:31
PROVIDERS: ATTEND Family Medicine
DX: Z08 Encounter for follow-up examination after completed treatment for malignant neoplasm (principal); Z85.3 Personal history of malignant neoplasm of breast
CPT/HCPCS: 77065

== ENCOUNTER → 2018-05-30 | Outpatient (CLI) | payer OTHER ==
[~2018-05-30] MED LIST changes: -HYDR-2758 PO; +HYDR-2761 PO
--- NOTE | 2018-05-30 15:09 | RAD ---
EXAM: CT left knee without contrast DATE: 05/30/2018 11:37 AM radiograph 04/19/2008 INDICATION: Left KNEE PAIN FALL 1 MONTH AGO PREV L KNEE SX NO PREV TECHNIQUE: CT left knee was performed without IV contrast. 2-D reformatted axial, sagittal and coronal images were created at the CT console workstation. FINDINGS: Postoperative changes of left total knee arthroplasty are seen. In addition, a lateral femoral sideplate and screw fixation device is also seen. The hardware results in extensive streak artifact limiting evaluation of the knee despite using a reduction techniques. Within these constraints, no definite hardware complication. Chronic/healed fracture deformity of the distal femoral diametaphysis is seen without discrete acute fracture plane. No new fracture plane is identified. Aortic calcifications are seen. Mild fatty atrophy of the muscles of the thigh most prominent within the vastus medialis and sartorius. Mild subcutaneous fat infiltration is seen about the lateral aspect of the knee and posterior aspect of the proximal lower leg. IMPRESSION: 1. Changes of left total knee arthroplasty and left lateral femoral sideplate and screw fixation of the distal femoral periprosthetic fracture is seen without definite interval hardware complication. 2. The distal femoral fracture appears healed without superimposed acute fracture. 3. Decreased bone mineral density. No evidence for acute fracture or dislocation. Electronically signed by: Stephen Martinez MD (05/30/2018 3:04 PM) [id number]
== END | disposition home or self-care (01) ==
LOC: CT 11:13
PROVIDERS: ATTEND Family Medicine
DX: M62.562 Muscle wasting and atrophy, not elsewhere classified, left lower leg (principal); S72.402D Unspecified fracture of lower end of left femur, subsequent encounter for closed fracture with routine healing; Z96.652 Presence of left artificial knee joint; Z91.81 History of falling; X58.XXXD Exposure to other specified factors, subsequent encounter
CPT/HCPCS: 73700

== ENCOUNTER → 2018-08-07 | Outpatient (CLI) | payer OTHER ==
[~2018-08-07] MED LIST changes: -AMLO10TA6 PO; +AMLO10TA8 PO
--- NOTE | 2018-08-07 12:25 | RAD ---
EXAM: Left upper extremity venous Doppler sonogram. HISTORY: Swelling and pain. TECHNIQUE: Weinberg scale and color Doppler sonographic evaluation of the left upper extremity veins with spectral waveform analysis was performed. FINDINGS: There is normal color flow, normal compressibility and there are normal spectral waveforms in the left upper extremity veins. IMPRESSION: No Doppler evidence of upper extremity deep venous thrombosis. Electronically signed by: Flor Clayton MD (08/07/2018 12:22 PM) [place] [id number]
== END | disposition home or self-care (01) ==
LOC: US 11:43
PROVIDERS: ATTEND Radiology Radiation Oncology
DX: R60.0 Localized edema (principal)
CPT/HCPCS: 93971

== ENCOUNTER → 2019-01-08 | Outpatient (CLI) | payer MEDICAID ==
[~2019-01-08] MED LIST changes: +CONTRAST GIVEN. MC PRN; +IOHEXOL 300 MG/ML 50 ML VIAL. IJ ONE; +LIDOCAINE WITH 8.4% SOD BICARB 3 ML DISP.SYRIN. INJ ONE; -MELA3TAB2 PO; +MELA3TAB56 PO
--- NOTE | 2019-01-08 13:54 | RAD ---
Examination: ARTHROCENT INT JT ASP/INJ LT History: Pain Comparison/Correlation: None Findings: Frontal and lateral views of the left knee were obtained. Total left knee joint prosthesis is present. Plate and associated screws involving the distal aspect of the femur laterally is noted. Screws are evident at the condylar level. Deformity of the distal femoral shaft with periosteal thickening compatible with previous trauma is noted. No joint effusion. Vascular calcifications noted. Risks and benefits of left knee joint arthrogram were discussed with patient and informed consent was obtained. Fluoroscopy was utilized for 0.4 minutes. A total of 5 fluoroscopic images were provided. Cleansing with Betadine swabs was performed at the medial aspect of the left knee. Total of 3 cc 1 percent lidocaine was administered at the medial aspect of the left knee. A total of 40 cc of Omnipaque 300 and normal saline solution of 50-50 mixture was injected into the left knee joint capsule. Contrast appears be primarily at the suprapatellar bursa region. Patient tolerated procedure well without immediate complications. Impression: Successful left knee joint arthrogram. Electronically signed by: Cem Caldwell MD (01/08/2019 1:52 PM) [facility]
--- NOTE | 2019-01-08 14:44 | RAD ---
EXAM: MRI LEFT HIP DATE: 01/08/2019 11:15 AM CLINICAL INDICATION: left hip pain COMPARISON: None. TECHNIQUE: Multiplanar, multisequence MR imaging of the left hip without IV contrast. FINDINGS: Small left hip joint effusion. No significant trochanteric bursal distention. Severe left hip joint osteoarthritis with chondral effacement diffusely with marginal acetabular and femoral head/neck junction osteophytes. Associated femoral acetabular remodeling. Diffuse labral degeneration/maceration. Heterogeneity and mild marrow edema within the left femoral head and neck likely reactive change from associated osteoarthritis. Axial migration of the femoral head with thinning of the quadrilateral plate. No evidence for fracture or osteonecrosis. Tendinous attachments of the hamstrings and gluteus medius and minimus grossly intact. Evaluation of the iliopsoas and rectus femoris attachments is limited given suboptimal [id number] ratio and contrast Limited survey of the visceral contents of the pelvis within normal limits. IMPRESSION: 1. Small left hip joint effusion. 2. Severe left hip joint osteoarthritis with mild associated left acetabular, femoral head and neck edema. 3. No evidence for acute fracture. Electronically signed by: Stephen Martinez MD (01/08/2019 2:42 PM) [id number]
--- NOTE | 2019-01-08 17:06 | RAD ---
EXAM: CT ARTHROGRAM, LEFT KNEE DATE: 01/08/2019 2:30 PM CLINICAL HISTORY: Left leg pain-left knee pain COMPARISON: CT left knee 05/30/2018 TECHNIQUE: Following intra-articular injection of dilute iodinated contrast, axial source images were obtained through the left knee. 3-D reformatted images were generated using metal reduction techniques. FINDINGS: Changes of left total knee arthroplasty are seen with associated lateral femoral sideplate and screw fixation. The metallic hardware results in extensive streak artifact despite metal reduction techniques. Iatrogenic distention of the left knee joint. The majority of contrast is seen within the suprapatellar bursa/recess, a small amount of contrast is seen about the femorotibial compartments. The cemented tibial component is well-seated without significant periprosthetic lucency or definite contrast extension. The femoral component appears well-seated although further evaluation is limited given extensive streak artifact. Polyethylene component is in place with contrast outlining the anterior and posterior margins. The patellar component is not well assessed. Essentially neutral patellar tracking. Vascular calcifications are seen. Mild fatty atrophy of the muscles of the thigh and lower leg. The quadriceps and patellar tendon are grossly intact. No evidence for acute fracture. IMPRESSION: 1. Changes of distal femoral screw plate fixation and lateral knee arthroplasty results in extensive streak artifact. 2. Diffusely decreased bone mineral density. 3. Within these constraints no evidence for acute fracture 4. In general the left knee arthroplasty is well seated without definite hardware complication. Electronically signed by: Stephen Martinez MD (01/08/2019 5:03 PM) [facility]
== END ==
LOC: MRI 10:31
PROVIDERS: ATTEND Nurse Practitioner Family
DX: M25.562 Pain in left knee (principal)
CPT/HCPCS: 20610; 73701; 73721; 77002; Q9967; 20605

== ENCOUNTER 2020-09-04 16:04 | Emergency (ER) | payer MEDICAID ==
[~2020-09-04] VITALS: Ht 170.2 cm; Wt 108.0 kg
[~2020-09-04 16:04] MED LIST changes: -ACET500T55 PO; +ACET500T56 PO; +AMLO-187 PO; -AMLO10TA8 PO; -CONTRAST GIVEN. MC PRN; -IOHEXOL 300 MG/ML 50 ML VIAL. IJ ONE; -LIDOCAINE WITH 8.4% SOD BICARB 3 ML DISP.SYRIN. INJ ONE; +MELA3TAB4 PO; -MELA3TAB56 PO
--- NOTE | 2020-09-04 16:18 | RAD ---
EXAM: CT head without contrast INDICATION: Stroke alert COMPARISON: None TECHNIQUE: Axial CT imaging through the head without intravenous contrast. Sagittal and coronal refor mats were obtained. One or more of the following individualized dose reduction techniques were utilized for this examinat ion: 1. Automated exposure control 2. Adjustment of the mA and/or kV according to patient size 3. Use of iterative reconstruction technique. FINDINGS: No intracranial hemorrhage, acute infarct, or mass lesion. Charlton-white matter differentiation is maint ained. Ventricles and sulci are mildly enlarged. The calvarium is intact. The visualized paranasal na hakeem sinuses and mastoid air cells are clear. Globes and orbits are intact. IMPRESSION: No acute intracranial abnormality. FOR INTERNAL CODING PURPOSES Critical result: Findings discussed with Dr. Jenkins at 09/04/2020 4:14 PM. RESULT CODE: (C) Electronically signed by: Carly Wells MD (09/04/2020 4:16 PM) [id number]
[2020-09-04 16:28] LABS: BASO # 0.1 x10^3/uL (0.0-0.2); BASO % 1 % (0-3); EOS % 0 % (0-3); HEMATOCRIT 33.8 % (36.0-47.0); LYMPH # 0.8 x10^3/uL (1.0-4.8); LYMPH % 6 % (24-48); MEAN CORPUSCULAR HEMOGLOBIN 28 pg (25-35); MEAN CORPUSCULAR HGB CONC 33 g/dL (31-37); MEAN CORPUSCULAR VOLUME 85 fL (79-100); MONO # 0.6 x10^3/uL (0.0-1.1); MONO % 4 % (0-9); NEUT # 12.7 x10^3/uL (1.8-7.7); NEUT % 89 % (31-73); PLATELET COUNT 198 x10^3/uL (140-400); RED BLOOD COUNT 3.98 x10^6/uL (3.50-5.40); RED CELL DISTRIBUTION WIDTH 16.8 % (11.5-14.5); WHITE BLOOD COUNT 14.2 x10^3/uL (4.0-11.0)
[2020-09-04] MEDS ORDERED: IV NORMAL SALINE 50ML IV ONE (16:30)
[2020-09-04] MEDS ORDERED: ALTEPLASE 81 MG IV SCH (16:30)
[2020-09-04] MEDS ORDERED: ALTEPLASE 9 MG IV ONE (16:30)
[2020-09-04 16:38] LABS: CALCIUM 9.1 mg/dL (8.5-10.1); GFR 29.6; POTASSIUM 4.5 mmol/L (3.5-5.1)
--- NOTE | 2020-09-04 16:47 | RAD ---
Study: XR CHEST 1V Indication: Code stroke. Comparison: CT chest 08/24/2016 Findings: The cardiomediastinal silhouette is enlarged. Thickening of the right paratracheal stripe but not sig nificantly different from the 2017 CT chest card stripper radiograph. No confluent airspace infiltrate, large effusion or pneumothorax. Aortic calcific atherosclerosis. 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 Impression: Enlarged cardiomediastinal silhouette but without radiographic findings of overt failure/volume overl oad. Additional chronic observations as above. Electronically signed by: STEFANIA WALTON MD (09/04/2020 4:45 PM) [facility]
[2020-09-04] MEDS ORDERED: IV NORMAL SALINE 1000ML BAG 1,000 ML IV SCH (17:00)
[2020-09-04 17:02] LABS: PROTHROMBIN TIME PATIENT 15.6 SEC (11.7-14.0)
--- NOTE | 2020-09-04 17:15 | EKG ---
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
--- NOTE | 2020-09-04 17:39 | PHYS DOC ---
Past Medical History Past Medical History: Cancer, Hypertension, Renal Disease, Other Additional Past Medical Histor: chronic edema, pt reports no medical history Past Surgical History: Cancer Surgery, Knee Replacement, Other Additional Past Surgical Histo: incision and drainage of abcess to left breast Smoking Status: Former Smoker Alcohol Use: None Drug Use: None General Adult EDM: Chief Complaint: NEURO SYMPTOMS/DEFICITS HPI: HPI: This is a 74-year-old female who presents the emergency department from her long-term care facility who reports that the patient was last known well at 2 PM. She suddenly had speech disturbances. They were concerned that the patient had had a stroke. The patient is reportedly at baseline normal with her speech pattern per the care home assessment. She has not had any facial drooping or unilateral weakness or sensation changes. She is not on any blood thinners. The patient has her medication list here which does not have any blood thinners on the list from the [facility]. EMS reports a normal blood sugar. The patient went directly to CT as a code stroke. Review of systems is negative for chest pain shortness of breath abdominal pain vomiting diaphoresis fevers chills. All other review of systems negative. 74-year-old female presenting with sudden speech disturbances came in as a code stroke went directly to CT. CT head reported to me by radiology with no acute findings by telephone. Blood glucose within normal limits. tPA checklist utilized. Inclusion criteria patient has a measurable neurologic deficit with a reasonable suspicion of the cause being ischemic stroke, onset of symptoms less than 3 hours, age over 18. Exclusion criteria: The patient has not had a recent severe head trauma or ischemic stroke, intracranial hemorrhage intracranial neoplasm GI bleed GI malignancy or intracranial or intraspinal surgery within the past 3 months. The patient symptoms are not suggestive of a subarachnoid hemorrhage. Her blood pressure is less than 185 and less than diastolic of 110. She has no active internal bleeding. Her presentation is not suggestive of infectious endocarditis. No known acute bleeding diathesis present. Her platelet count is within normal limits. She is not on a current blood thinner. INR not back prior to the decision to give TPA. CT head shows no evidence of hemorrhage and does not have extensive obvious hypodensity consistent with a reversible injury. No seizure. No previous arterial puncture. No known large intracranial aneurysm. No untreated known intracranial malformation. NIH stroke scale shows an NIH of 7. I spoke with Dr. Buenrostro emergently for consultation on the administration of TPA. He recommends giving TPA. I also then spoke with the patient's niece Julio César Lozano and we had face time with the patient to confirm that this is an acute sudden change in the patient speech which she agrees. We discussed about the risks and benefits of TPA and she agrees with giving TPA. The patient unfortunately is unable to make medical decisions because of the patient's current medical condition at this time. Unfortunately because of the patient's chronic kidney disease and GFR we are unable to get an angiogram of the patient's head and neck to evaluate for large vessel occlusion. I spoke with Dr. Buenrostro who agrees with this decision out of concern for worsening kidney injury and or kidney failure from complications of contrast use. As an alternative we will pursue an emergent angiography of the head and neck. We will have to call in the senior technical architect for this. After discussing this option with the family the family prefers transfer to higher level stroke center for evaluation for large vessel occlusion. We will call [facility] as this is the patient's families preference. [facility] accepts the patient for transfer for further evaluation of a possible large vessel occlusion. Patient's temperature is elevated here in the emergency room. We will cover the patient with IV Rocephin and start a liter of fluids for transfer. We communicated this with [facility]. The patient was then transferred for further treatment and care. In the emergency department the patient developed right upper extremity weakness which was a new finding after giving TPA. Her speech remains aphasic with slurred speech. I have communicated with the patient's niece about the patient's condition. Review of Systems: Review of Systems: Constitutional: Denies fever or chills. [] Eyes: Denies change in visual acuity. [] HENT: Denies nasal congestion or sore throat. [] Respiratory: Denies cough or shortness of breath. [] Cardiovascular: Denies chest pain or edema. [] GI: Denies abdominal pain, nausea, vomiting, bloody stools or diarrhea. [] : Denies dysuria. [] Musculoskeletal: Denies back pain or joint pain. [] Integument: Denies rash. [] Neurologic: Denies headache, focal weakness or sensory changes. [] Endocrine: Denies polyuria or polydipsia. [] Lymphatic: Denies swollen glands. [] Psychiatric: Denies depression or anxiety. [] Heart Score: C/O Chest Pain: No Risk Factors: Risk Factors: DM, Current or recent (<one month) smoker, HTN, HLP, family history of CAD, obesity. Risk Scores: Score 0 - 3: 2.5% MACE over next 6 weeks - Discharge Home Score 4 - 6: 20.3% MACE over next 6 weeks - Admit for Clinical Observation Score 7 - 10: 72.7% MACE over next 6 weeks - Early Invasive Strategies Current Medications: Current Medications Medications (Trade) Dose Ordered Sig/Ezequiel Start Time Stop Time Status Last Admin Dose Admin Alteplase, Recombinant 81 ml @ 81 mls/hr Q1H 09/04/20 16:30 09/04/20 17:29 09/04/20 16:44 81 MLS/HR Sodium Chloride 1,000 ml @ 100 mls/hr Q10H 09/04/20 17:00 09/04/20 20:59 Allergies: Allergies: Allergies Coded Allergies Type Severity Reaction Last Updated Verified No Known Drug Allergies 08/25/16 No Physical Exam: PE: Constitutional: Well developed, well nourished, no acute distress, non-toxic appearance. [] HENT: Normocephalic, atraumatic, bilateral external ears normal, oropharynx moist, no oral exudates, nose normal. [] Eyes: PERRLA, EOMI, conjunctiva normal, no discharge. [] Neck: Normal range of motion, no tenderness, supple, no stridor. [] Cardiovascular:Heart rate regular rhythm, no murmur [] Lungs & Thorax: Bilateral breath sounds clear to auscultation [] Abdomen: Bowel sounds normal, soft, no tenderness, no masses, no pulsatile masses. [] Skin: Warm, dry, no erythema, no rash. [] Back: No tenderness, no CVA tenderness. [] Extremities: No tenderness, no cyanosis, no clubbing, ROM intact, no edema. [] Neurologic: Mental status: Awake oriented and alert x3 Cranial nerves: Extraocular movements intact, eyebrows tristin bilaterally, smile symmetric, uvula elevation nl, shoulder shrug intact bilaterally, tongue protrusion normal Slurred speech. Expressive aphasia present. Sensation: equal and normal in all extremities Strength: 5/5 in upper extremities bilaterally, 3/5 in the lower ext bilaterally Psychologic: Affect normal, judgement normal, mood normal. [] Current Patient Data: Labs: Laboratory Tests Test 09/04/20 16:18 09/04/20 16:42 White Blood Count 14.2 x10^3/uL (4.0-11.0) H Red Blood Count 3.98 x10^6/uL (3.50-5.40) Hemoglobin 11.0 g/dL (12.0-15.5) L Hematocrit 33.8 % (36.0-47.0) L Mean Corpuscular Volume 85 fL (79-100) Mean Corpuscular Hemoglobin 28 pg (25-35) Mean Corpuscular Hemoglobin Concent 33 g/dL (31-37) Red Cell Distribution Width 16.8 % (11.5-14.5) H Platelet Count 198 x10^3/uL (140-400) Neutrophils (%) (Auto) 89 % (31-73) H Lymphocytes (%) (Auto) 6 % (24-48) L Monocytes (%) (Auto) 4 % (0-9) Eosinophils (%) (Auto) 0 % (0-3) Basophils (%) (Auto) 1 % (0-3) Neutrophils # (Auto) 12.7 x10^3/uL (1.8-7.7) H Lymphocytes # (Auto) 0.8 x10^3/uL (1.0-4.8) L Monocytes # (Auto) 0.6 x10^3/uL (0.0-1.1) Eosinophils # (Auto) 0.0 x10^3/uL (0.0-0.7) Basophils # (Auto) 0.1 x10^3/uL (0.0-0.2) Platelet Estimate Pending Sodium Level 139 mmol/L (136-145) Potassium Level 4.5 mmol/L (3.5-5.1) Chloride Level 100 mmol/L (98-107) Carbon Dioxide Level 28 mmol/L (21-32) Anion Gap 11 (6-14) Blood Urea Nitrogen 22 mg/dL (7-20) H Creatinine 2.0 mg/dL (0.6-1.0) H Estimated GFR (Cockcroft-Gault) 29.6 Glucose Level 119 mg/dL (70-99) H Calcium Level 9.1 mg/dL (8.5-10.1) Troponin I Quantitative < 0.017 ng/mL (0.000-0.055) Prothrombin Time 15.6 SEC (11.7-14.0) H Prothrombin Time INR 1.3 (0.8-1.1) H Activated Partial Thromboplast Time 29 SEC (24-38) Laboratory Tests 09/04/20 16:18 Laboratory Tests 09/04/20 16:18 EKG: EKG: [] Radiology/Procedures: Radiology/Procedures: [] Course & Med Decision Making: Course & Med Decision Making Pertinent Labs and Imaging studies reviewed. (See chart for details) [] Dragon Disclaimer: Dragon Disclaimer: This electronic medical record was generated, in whole or in part, using a voice recognition dictation system. Departure Departure Impression: Primary Impression: Stroke-like symptoms Disposition: 02 SHORT TERM HOSPITAL Condition: GUARDED Referrals: RUPA ORTIZ MD (PCP) NIHSS Stroke Scale NIH Stroke Scale: NIH Stroke Scale Response (Comments) Value Level of Consciousness: 0 Alert/Responsive 0 LOC Questions: 0 Answers both correctly 0 LOC Commands: 0 Performs both tasks 0 Best Gaze: 0 Normal 0 Visual: 0 No visual loss 0 Facial Palsy: 0 Normal, symmetrical 0 Motor - Left Arm 0 No drift 0 Motor - Right Arm 0 No drift 0 Motor - Left Leg 2 Some effort 2 Motor: Right Leg 2 Some effort 2 Best Language: 2 Severe aphasia 2 Dysathria: 1 Mild to moderate 1 Extinction and Inattention: 0 Normal (immediately on arrival) 0 Total 7 NIHSS Stroke Scale NIH Stroke Scale: NIH Stroke Scale Response (Comments) Value Level of Consciousness: 0 Alert/Responsive 0 LOC Questions: 0 Answers both correctly 0 Best Gaze: 0 Normal 0 Visual: 0 No visual loss 0 Facial Palsy: 0 Normal, symmetrical 0 Motor - Left Arm 0 No drift 0 Motor - Right Arm 1 Drifts but can hold 1 Motor - Left Leg 2 Some effort 2 Motor: Right Leg 2 Some effort 2 Limb Ataxia: 0 Absent 0 Sensory: 0 No loss 0 Best Language: 1 Mild to mod aphasia 1 Dysathria: 2 Severe 2 Extinction and Inattention: 0 Normal (at 1823) 0 Total 8 Critical Care Time Critical care time spent was 45 minutes exclusive of procedures. Time was spent evaluating the patient, ordering the administration of medications, reevaluating the patient, discussing with the admitting provider and documenting. MARY MERRILL MD September 04, 2020 17:39
[2020-09-04 17:59] LABS: % BANDS 4 % (0-9); % LYMPHS 7 % (24-48); % MONOS 5 % (0-10); % SEGS 84 % (35-66)
[2020-09-04] MEDS ORDERED: IV NORMAL SALINE 1000ML BAG 1,000 ML IV ONE (18:00)
[2020-09-04 18:01] LABS: PLT ESTIMATE ADEQUATE (ADEQUATE)
[2020-09-04 18:16] VITALS: BP 171/105
[2020-09-04] MEDS ORDERED: cefTRIAXone IV Push 1 GM VIAL. IVP ONE (19:00)
== END 2020-09-04 18:37 | disposition short-term general hospital (02) ==
LOC: ER 16:04 → UNDOADMIN 16:48 → 1 WEST ICU 16:48 → ER 18:37
DX: R47.89 Other speech disturbances (principal); R47.01 Aphasia; G89.29 Other chronic pain; I12.9 Hypertensive chronic kidney disease with stage 1 through stage 4 chronic kidney disease, or unspecified chronic kidney disease; N18.9 Chronic kidney disease, unspecified; Z87.891 Personal history of nicotine dependence
CPT/HCPCS: 36415; 37195; 70450; 71045; 80048; 84484; 85007; 85025; 85610; 85730; 93005; 96361; 96374; 99291; J0696; J2997; J7030